=== PATIENT | male | born 1950 | race Caucasian/White ===

== ENCOUNTER 2022-04-07 12:05 | Emergency (ER) | payer MEDICARE, SELFPAY ==
[2022-04-07 12:11] VITALS: BP 161/68; PULSE 60; RESP 16; TEMP 36.5; O2SAT 97; BMI 27.8
[2022-04-07 15:11] VITALS: BP 164/101; PULSE 72; RESP 16; O2SAT 97
--- NOTE | 2022-04-07 15:26 | ED_ITS ---
HPI - General Adult General Time Seen by Provider: 15:26 Date Seen: 04/07/22 Chief complaint: GI Bleed Stated complaint: Rectal bleeding Time Seen by Provider: 04/07/22 15:11 Source: patient, family ( present) and RN notes reviewed Mode of arrival: ambulatory Limitations: no limitations History of Present Illness HPI narrative: This 72-year-old male is accompanied by his coming into the ER with concern of rectal bleeding. Patient was just sitting after breakfast and felt blood, got up and noticed blood. He cleaned himself up. Around 11 he had a bloody stool. He states he was hospitalized in both 2010 and 2011 for what sounds like diverticular bleeds. They ended up stopping on their own both times per report. He did require blood transfusions at least on 1 of the hospitalizations. He has been getting colonoscopies every 5 years. He is 4 years out from his last colonoscopy. He is having no abdominal pain, no preceding diarrhea. No sympto matic bleeding at this time. No fevers or chills. Related Data Home Medications Medication Instructions Recorded Confirmed lisinopril 20 mg tablet 20 mg PO DAILY 04/07/22 04/07/22 simvastatin 20 mg tablet 20 mg PO DAILY 04/07/22 04/07/22 Allergies Allergy/AdvReac Type Severity Reaction Status Date / Time No Known Drug Allergies Allergy Verified 04/07/22 12:16 Review of Systems Status of ROS: Reports: 10 or more systems reviewed and unremarkable except as noted in History and below [facility] Medical History (Updated 04/07/22 @ 18:35 by Anila Godfrey MD) Diverticulitis Hypertension Social History Smoking Status: Never smoker Do you use any of these nicotine containing products: None Second hand tobacco smoke exposure: No How often do you have a drink containing alcohol: 2-3 times a week How many standard drinks containing alcohol do you have on a typical day: 1 or 2 AUDIT-C Alcohol total score: 3 Non-prescribed substance use: denies use Exam Const: Vital Signs, click to edit/add: Vital Signs - 24 hr 04/07/22 12:11 04/07/22 15:11 Temperature 97.7 F Pulse Rate [Right Pulse Oximeter] 60 72 Respiratory Rate 16 16 Blood Pressure [Ri ght Upper Arm] 161/68 H 164/101 H Pulse Oximetry 97 97 Oxygen Delivery Me thod Room Air Room Air Documenting provider has reviewed patient's vital signs: yes Common normals: no apparent distress, average body habitus, oriented x3, no limitations, healthy appearing and alert General appearance: cooperative, comfortable, well kempt and well developed HENMT: Common normals: normocephalic, head/scalp atraumatic, hearing grossly normal bilaterally (Has bilateral hearing aids), external ears normal, external nose normal, nasal mucous membranes and turbinates normal, moist oral mucous membranes, oropharynx normal, dentition normal and gingiva normal Head and scalp: normocephalic and atraumatic Nose: external nose normal and nasal mucous membranes and turbinates normal External ear: external ears normal Eye: Common normals: PERRL, EOMs intact bilaterally, conjunctivae normal and no scleral icterus Conjunctiva: conjunctiva(e) normal Pupil: PERRL Neck & C-Spine: Common normals: full ROM, no lymphadenopathy, supple, no meningeal signs, no JVD and thyroid normal Thyroid: thyroid normal Resp: Common normals: normal respiratory effort, no retractions, no use of accessory muscles and clear to auscultation bilaterally Auscultation: clear to auscultation bilaterally Cardio: Common normals: no JVD, regular rate, regular rhythm, S1 normal heart sound, S2 normal heart sound, no gallops, no clicks, no murmurs and no rub Rate: regular rate Rhythm: regular rhythm Heart sounds: S1 normal and S2 normal GI: Common normals: Normal to inspection, nondistended, normoactive bowel sounds present, soft to palpation, non-tender, no hepatosplenomegaly and no masses Palpation: soft and no hepatosplenomegaly Other: Had some tissue in the intergluteal fold, some dried blood on it. External anus without any visible lesions. No active bleeding at this time. Extremity: Other: No lower extremity edema. Neuro: Common normals: oriented x3 and gait normal Sensorium/orientation: alert Meningeal signs: no meningeal signs Psych: Appearance: well kempt Course Course Hospital Course: We will establish an IV, obtain basic labs obviously including a CBC. We will do a type and screen. I do not feel that he needs abdominal imaging at this time. Given his history, am reluctant to discharge to home as he has had significant bleeding in the past remotely. We will see where his hemoglobin and labs lie, likely talk to the hospitalist once I have his hemoglobin result. Reevaluation(s) Reevaluation #1: Around 330, patient had she just a little what he calls leftover blood. Was very small he states it was maybe about 10% of what he had at the episode around 11 this morning. He is not feeling dizzy, not lightheaded, does not feel sympto matic from blood loss. Reviewed with them that I had spoken to our hospitalist home thought he maybe could go home. I do not think any abdominal imaging is going to be beneficial at this time. He is having absolutely no pain. Labs are reassuring. Reviewed his hemoglobin level. He is going to try drinking some fluids here, see how he does. If no further bleeding, will likely discharge to home for further observation. They are comfortable with that plan. They only live about 1.5 miles from the hospital. Reviewed with them that they certainly still can call EMS from home if needed. Time: 17:02 Reevaluation #2: Repeat hemoglobin is absolutely the same. No further bleeding episodes. We are going to discharge to home for further observation. His understands any further bleeding, she will bring him back. If there is heavy bleeding at home, do recommend calling 911. We also reviewed his positive COVID PCR. He has not been sick with COVID at all that he is aware of, is not symptomatic at this time. He has had all of his vaccines. He does donate blood and has been shown to have COVID antibodies. We will run a COVID antigen and let them know if this is positive. If the antigen is negative, unclear what the COVID PCR positivity actually means. Should he start to become symptomatic with COVID, does need to consider treatment. Time: 18:32 Vital Signs Vital signs: Initial Vital Signs Temperature 97.7 F 04/07/22 12:11 Temperature Source Temporal Artery Scan 04/07/22 12:11 Pulse Rate 60 04/07/22 12:11 Pulse Rhythm 04/07/22 12:11 Respiratory Rate 16 04/07/22 12:11 Blood Pressure 161/68 H 04/07/22 12:11 Blood Pressure Mean 99 04/07/22 12:11 Blood Pressure Position Sitting 04/07/22 12:11 Pulse Oximetry 97 04/07/22 12:11 Oxygen Delivery Method 12/19/22 12:11 Vital Signs Temperature 97.7 F 04/07/22 12:11 Pulse Rate 60 04/07/22 12:11 Respiratory Rate 16 04/07/22 12:11 Blood Pressure 161/68 H 04/07/22 12:11 Pulse Oximetry 97 04/07/22 12:11 Oxygen Delivery Method 04/07/22 12:11 Temperature 97.7 F 04/07/22 12:11 Pulse Rate 72 04/07/22 15:11 Respiratory Rate 16 04/07/22 15:11 Blood Pressure 164/101 H 04/07/22 15:11 Pulse Oximetry 97 04/07/22 15:11 Oxygen Delivery Method 04/07/22 15:11 Medical Decision Making Lab Data Lab results reviewed: Yes I reviewed the patient's lab results Labs: Lab Results 04/07/22 04/07/22 04/07/22 Range/Units 15:40 15:40 15:40 WBC 6.36 (4.50-11.00) K/uL RBC 4.88 (4.30-5.90) m/uL Hgb 13.4 L (13.5-17.5) gm/dL Hct 40.4 (37.0-53.0) % MCV 83 (80-100) fL MCH 28 (26-34) pg MCHC 33 (32-36) gm/dL RDW Coeff of Brenna 13.2 (11.5-15.5) % Plt Count 192 (140-440) K/uL Neut % (Auto) 74.6 H (42.0-72.0) % Lymph % (Auto) 14.3 L (20-44) % [place] % (Auto) 7.7 (0.0-11.0) % Eos % (Auto) 2.5 (0.0-7.0) % Baso % (Auto) 0.9 (0.0-3.0) % Neut # (Auto) 4.70 (1.7-7.0) K/uL Lymph # (Auto) 0.90 (0.90-2.90) K/uL [place] # (Auto) 0.50 (0.00-0.90) K/UL Eos # (Auto) 0.16 (0.00-0.50) K/uL Baso # (Auto) 0.06 (0.00-0.30) K/uL Sodium 139 (135-149) mmol/L Potassium 3.9 (3.6-5.1) mmol/L Chloride 111 (96-114) mmol/L Carbon Dioxide 23 (20-32) mmol/L BUN 19 (7-30) mg/dL Creatinine 0.7 (0.5-1.5) mg/dL Estimated Creat Clear 71.13 Estimated GFR 97 ml/min Glucose 92 (60-115) mg/dL Lactate 0.5 (0.5-1.9) mmol/L Calcium 8.8 (8.4-10.6) mg/dL Total Bilirubin 1.1 (0.1-1.5) mg/dL AST 55 H (12-35) U/L ALT 54 H (4-50) U/L Alkaline Phosphatase 63 (40-150) U/L C-Reactive Protein < 0.5 L (0.5-1.0) mg/dL Total Protein 6.6 (6.0-8.3) g/dL Albumin 3.9 (3.3-5.0) g/dL SARS-CoV-2 (PCR) (Negative) Blood Type Antibody Screen 04/07/22 04/07/22 04/07/22 Range/Units 15:40 15:46 17:45 WBC (4.50-11.00) K/uL RBC (4.30-5.90) m/uL Hgb 13.4 L (13.5-17.5) gm/dL Hct (37.0-53.0) % MCV (80-100) fL MCH (26-34) pg MCHC (32-36) gm/dL RDW Coeff of Brenna (11.5-15.5) % Plt Count (140-440) K/uL Neut % (Auto) (42.0-72.0) % Lymph % (Auto) (20-44) % [place] % (Auto) (0.0-11.0) % Eos % (Auto) (0.0-7.0) % Baso % (Auto) (0.0-3.0) % Neut # (Auto) (1.7-7.0) K/uL Lymph # (Auto) (0.90-2.90) K/uL [place] # (Auto) (0.00-0.90) K/UL Eos # (Auto) (0.00-0.50) K/uL Baso # (Auto) (0.00-0.30) K/uL Sodium (135-149) mmol/L Potassium (3.6-5.1) mmol/L Chloride (96-114) mmol/L Carbon Dioxide (20-32) mmol/L BUN (7-30) mg/dL Creatinine (0.5-1.5) mg/dL Estimated Creat Clear Estimated GFR ml/min Glucose (60-115) mg/dL Lactate (0.5-1.9) mmol/L Calcium (8.4-10.6) mg/dL Total Bilirubin (0.1-1.5) mg/dL AST (12-35) U/L ALT (4-50) U/L Alkaline Phosphatase (40-150) U/L C-Reactive Protein (0.5-1.0) mg/dL Total Protein (6.0-8.3) g/dL Albumin (3.3-5.0) g/dL SARS-CoV-2 (PCR) POSITIVE SARS-CoV-2 A (Negative) Blood Type B Positive Antibody Screen NEGATIVE Critical Care Time Critical Care Time Critical Care Time: No Discharge Plan Discharge Clinical Impression: Painless rectal bleeding Patient Disposition: Home, Self-Care Condition: Stable Instructions: Rectal Bleeding (ED) Additional Instructions: If you have further bleeding episodes, do need to return to the ER. Otherwise, get scheduled for follow-up with your primary care provider within the next 1-2 weeks; discuss possibly having the colonoscopy moved up sooner rather than waiting a full year. We will contact you with the COVID antigen status. If your antigen is negative, you do not likely have active COVID. If for any reason you do start to develop COVID symptoms, recommend contacting your primary care clinic to discuss the possibility of obtaining COVID oral medication for treatment. Prescriptions: No Action lisinopril 20 mg tablet 20 mg PO DAILY simvastatin 20 mg tablet 20 mg PO DAILY Stand Alone Forms: [employer] Info Instructions
[2022-04-07 15:47] LABS: Lactate* 0.5 mmol/L (0.5-1.9)
[2022-04-07 15:50] LABS: Basophils Absolute Auto 0.06 K/uL (0.00-0.30); Basophils Percent Auto 0.9 % (0.0-3.0); Eosinophils Absolute Auto 0.16 K/uL (0.00-0.50); Eosinophils Percent Auto 2.5 % (0.0-7.0); Hematocrit 40.4 % (37.0-53.0); Hemoglobin* 13.4 gm/dL (13.5-17.5); Lymphocytes Percent Auto 14.3 % (20-44); Mean Corpuscular HGB Conc 33 gm/dL (32-36); Mean Corpuscular Hemoglobin 28 pg (26-34); Mean Corpuscular Volume 83 fL (80-100); Monocytes Percent Auto 7.7 % (0.0-11.0); Neutrophils Percent Auto 74.6 % (42.0-72.0); Platelet Count* 192 K/uL (140-440); RDW Coefficient of Variation % 13.2 % (11.5-15.5); Red Blood Count 4.88 m/uL (4.30-5.90); White Blood Count* 6.36 K/uL (4.50-11.00)
[2022-04-07 15:55] LABS: Slide Review Reflex No
[2022-04-07 16:15] LABS: Chloride* 111 mmol/L (96-114)
[2022-04-07 16:16] LABS: Albumin* 3.9 g/dL (3.3-5.0); Potassium* 3.9 mmol/L (3.6-5.1); Sodium* 139 mmol/L (135-149)
[2022-04-07 16:18] LABS: Creatinine* 0.7 mg/dL (0.5-1.5); Est. Creatinine Clearance* 71.13; Estimated Glomerular Filt Rate 97 ml/min
[2022-04-07 16:19] LABS: Alkaline Phosphatase* 63 U/L (40-150); Aspartate Amino Transferase* 55 U/L (12-35); Bilirubin Total* 1.1 mg/dL (0.1-1.5); Blood Urea Nitrogen* 19 mg/dL (7-30); Carbon Dioxide* 23 mmol/L (20-32); Glucose* 92 mg/dL (60-115); Total Protein* 6.6 g/dL (6.0-8.3)
[2022-04-07 16:20] LABS: Calcium* 8.8 mg/dL (8.4-10.6)
[2022-04-07 16:25] LABS: C Reactive Protein* < 0.5 mg/dL (0.5-1.0)
[2022-04-07 16:35] LABS: Alanine Aminotransferase* 54 U/L (4-50)
[2022-04-07 16:36] LABS: SARS PCR* POSITIVE SARS-CoV-2 (Negative)
[2022-04-07 17:57] LABS: Hemoglobin* 13.4 gm/dL (13.5-17.5)
[2022-04-07 18:36] VITALS: BP 165/104; PULSE 66; RESP 16; O2SAT 97
--- NOTE | 2022-04-07 19:05 | ED.NURSE ---
Wrong swab was collected in error. Patient had already been discharged. Message was left detailing situation and option to either come in for test tonight or obtain at home Covid test at [facility] were discussed.
== END 2022-04-07 18:52 | disposition home or self-care (01) ==
PROVIDERS: Emergency Provider Family Medicine
DX: K62.5 Hemorrhage of anus and rectum (principal); U07.1 COVID-19
CPT/HCPCS: 36415; 80053; 83605; 85018; 85025; 86140; 86850; 86900; 86901; 87426; 87635; 94761; 99284

== ENCOUNTER 2022-06-09 21:18 | Observation (INO) | payer MEDICARE, SELFPAY ==
[2022-06-09] VITALS (14 sets, daily range): BP systolic 131–148; BP diastolic 84–94; PULSE 60–76; RESP 16; TEMP 36.4; O2SAT 94–98; BMI 27.9
--- NOTE | 2022-06-09 22:55 | CRLHL7_ITS ---
For Patients: As a result of the Century Cures Act, medical imaging exams and procedure reports are released immediately into your electronic medical record. You may view this report before your referring provider. If you have questions, please contact your health care provider. Indication: GI bleed Technique: KUB 2 view Comparison: None Findings/Impression: : Soft tissues: No suspicious calcifications to suggest kidney or ureteral stones. No sign of free air. No sign of soft tissue mass. Bowel: Large amount of stool in the colon. Bones: Mild levoscoliosis. Two tiny metallic densities project over the T8 vertebral body of unknown etiology. Dictated by Tanisha Canela MD @ 06/09/2022 11:57:50 PM (Electronically Signed)
--- NOTE | 2022-06-09 22:56 | ED.GIBLEED ---
HPI - GI Bleed General Chief complaint: GI Bleed Stated complaint: previous diverticulitis, possible GI bleed Time Seen by Provider: 06/09/22 22:04 History of Present Illness HPI Narrative: 72-year-old man presenting to the emergency department with concern of bleeding per rectum. This evening has had 3 episodes of bloody stool back to back to back. Moderate clots mixed with stool is described. Otherwise asymptomatic without lightheadedness or shortness of breath. No fever. No abdominal pain. Only potential discomfort was some urge to stool. There is a history of diverticular disease with history of diverticulitis. Later report a continued history of constipation as well over the years. More remote history of bleeding diverticuli apparently ultimately necessitating blood transfusion on 1 occasion. Does have Q 5 years colonoscopies. Reports had 1 very recently here and pending follow-up for result this week. Seen last in this department in March of last year for what sounds like a lower GI bleed. Resolved spontaneously. Had a positive COVID test at this time. Does not take anticoagulation or antiplatelet therapy. Related Data Home Medications Medication Instructions Recorded Confirmed lisinopril 20 mg tablet 20 mg PO DAILY 04/07/22 04/07/22 simvastatin 20 mg tablet 20 mg PO DAILY 04/07/22 04/07/22 Allergies Allergy/AdvReac Type Severity Reaction Status Date / Time No Known Drug Allergies Allergy Verified 04/07/22 12:16 Review of Systems Status of ROS: Reports: 10 or more systems reviewed and unremarkable except as noted in History and below [facility] Medical History Diverticulitis Hypertension Social History Highest level of school completed/degree received: some college, no degree Smoking Status: Never smoker Do you use any of these nicotine containing products: None Second hand tobacco smoke exposure: No How often do you have a drink containing alcohol: 2-3 times a week How many standard drinks containing alcohol do you have on a typical day: 1 or 2 AUDIT-C Alcohol total score: 3 Non-prescribed substance use: denies use Caffeine: Yes service: No Exam Narrative: Exam Narrative: Seems a little distracted in conversation. Mildly hard of hearing perhaps. No distress. Tired; had been sleeping when I enter the room. Is breathing easily. Cranial nerves 2-12 look to be intact. Lungs are clear. Heart is in a regular rate and rhythm. Abdomen is soft with normoactive bowel sounds. No pain. No peritoneal signs. No masses appreciated. Skin is warm and dry. Const: Vital Signs, click to edit/add: Vital Signs - 24 hr 06/09/22 21:27 06/09/22 21:52 06/09/22 21:53 Temperature 97.6 F Pulse Rate 64 66 Pulse Rate [Pulse Oximeter] 76 Respiratory Rate 16 Blood Pressure 138/87 Blood Pressure [Ri ght Upper Arm] 145/94 H Pulse Oximetry 94 95 95 06/09/22 22:00 06/09/22 22:02 06/09/22 22:03 Temperature Pulse Rate 64 64 65 Pulse Rate [Pulse Oximeter] Respiratory Rate Blood Pressure 146/85 H Blood Pressure [Ri ght Upper Arm] Pulse Oximetry 95 96 95 06/09/22 22:30 06/09/22 22:31 06/09/22 23:00 Temperature Pulse Rate 63 62 65 Pulse Rate [Pulse Oximeter] Respiratory Rate Blood Pressure 144/85 H Blood Pressure [Ri ght Upper Arm] Pulse Oximetry 97 95 96 06/09/22 23:02 06/09/22 23:03 06/09/22 23:34 Temperature Pulse Rate 60 65 61 Pulse Rate [Pulse Oximeter] Respiratory Rate Blood Pressure 131/84 Blood Pressure [Ri ght Upper Arm] Pulse Oximetry 95 95 96 06/09/22 23:35 06/10/22 00:02 06/10/22 02:00 Temperature 97.6 F Pulse Rate 61 59 L Pulse Rate [Pulse Oximeter] 79 Respiratory Rate 16 16 16 Blood Pressure 148/91 H 152/83 H Blood Pressure [Ri ght Upper Arm] 135/84 Pulse Oximetry 96 96 96 06/09/22 21:45 Temperature Pulse Rate Pulse Rate [Pulse Oximeter] Respiratory Rate Blood Pressure Blood Pressure [Ri ght Upper Arm] Pulse Oximetry 98 Course Vital Signs Vital signs: Initial Vital Signs Temperature 97.6 F 06/09/22 21:27 Temperature Source Temporal Artery Scan 06/09/22 21:27 Pulse Rate 76 06/09/22 21:27 Respiratory Rate 16 06/09/22 21:27 Blood Pressure 145/94 H 02/20/23 21:27 Blood Pressure Mean 111 02/20/23 21:27 Pulse Oximetry 94 06/09/22 21:27 Vital Signs Temperature 97.6 F 06/09/22 21:27 Pulse Rate 76 06/09/22 21:27 Respiratory Rate 16 06/09/22 21:27 Blood Pressure 145/94 H 06/09/22 21:27 Pulse Oximetry 94 06/09/22 21:27 Temperature 97.6 F 06/10/22 02:30 Pulse Rate 65 06/10/22 03:06 Respiratory Rate 16 06/10/22 02:30 Blood Pressure 155/88 H 06/10/22 03:06 Pulse Oximetry 96 06/10/22 02:29 Oxygen Delivery Method 06/10/22 02:29 MDM - GI Bleed MDM Narrative Medical decision making narrative: Hemoglobin is 13 which is near baseline. White count is not elevated. Is given IV fluids. I also dose with pantoprazole and txa. We did do a flat and upright x-ray. By my read does show a significant amount of right-sided colonic stool with none really in the pelvis. I do not see any free air. I think less likely with normal white count and benign belly exam that there is diverticulitis. Certainly possible diverticular bleed. I return later for anoscopy exam. Mr. Carbajal needs to use the restroom. He does produce bright red blood stained water in the toilet; no significant clotting. Upon return I do anoscopy exam. There is some dried blood on buttocks. Upon placing the anoscope I initially thought I viewed some fresh bleeding in the 6 o'clock position of the anus briefly, possibly fissure like, but this was eclipsed by a pouring out of dark/maroonish bloody liquid. I had been anticipating repeat hemoglobins in the emergency department and potential discharge home as prior, however with this finding on anoscopy I think would be better to be monitored inpatient with serial hemoglobins. Did communicate with general surgeon about this as well who will be following Mr. Carbajal in the morning. Admitted to hospitalist coverage. COVID test is positive. This may still be lingering from prior diagnoses. Antigen testing though is negative. Medical Records Attestation: I reviewed the patient's medical records. Lab Data Attestation: I reviewed the patient's lab results. Labs: Lab Results 06/09/22 06/09/22 06/09/22 Range/Units 23:00 23:00 23:00 WBC 4.86 (4.50-11.00) K/uL RBC 4.75 (4.30-5.90) m/uL Hgb 13.0 L (13.5-17.5) gm/dL Hct 39.0 (37.0-53.0) % MCV 82 (80-100) fL MCH 27 (26-34) pg MCHC 33 (32-36) gm/dL RDW Coeff of Brenna 14.3 (11.5-15.5) % Plt Count 180 (140-440) K/uL Neut % (Auto) 52.2 (42.0-72.0) % Lymph % (Auto) 29.8 (20-44) % [place] % (Auto) 11.1 H (0.0-11.0) % Eos % (Auto) 4.9 (0.0-7.0) % Baso % (Auto) 1.6 (0.0-3.0) % Neut # (Auto) 2.53 (1.7-7.0) K/uL Lymph # (Auto) 1.45 (0.90-2.90) K/uL [place] # (Auto) 0.50 (0.00-0.90) K/UL Eos # (Auto) 0.24 (0.00-0.50) K/uL Baso # (Auto) 0.08 (0.00-0.30) K/uL INR 0.97 (0.91-1.10) APTT 33 (23-33) Seconds Sodium 139 (135-149) mmol/L Potassium 4.0 (3.6-5.1) mmol/L Chloride 110 (96-114) mmol/L Carbon Dioxide 26 (20-32) mmol/L BUN 22 (7-30) mg/dL Creatinine 0.9 (0.5-1.5) mg/dL Estimated Creat Clear 69.03 Estimated GFR 90 ml/min Glucose 99 (60-115) mg/dL Calcium 8.7 (8.4-10.6) mg/dL Total Bilirubin 0.8 (0.1-1.5) mg/dL Direct Bilirubin 0.1 (0.0-0.5) mg/dL AST 23 (12-35) U/L ALT 25 (4-50) U/L Alkaline Phosphatase 61 (40-150) U/L C-Reactive Protein < 0.5 L (0.5-1.0) mg/dL Total Protein 6.5 (6.0-8.3) g/dL Albumin 3.8 (3.3-5.0) g/dL SARS-CoV-2 (PCR) (Negative) SARS-CoV-2 Ag (Rapid) (Negative) Blood Type Antibody Screen 06/09/22 06/09/22 06/09/22 Range/Units 23:00 23:00 23:07 WBC (4.50-11.00) K/uL RBC (4.30-5.90) m/uL Hgb (13.5-17.5) gm/dL Hct (37.0-53.0) % MCV (80-100) fL MCH (26-34) pg MCHC (32-36) gm/dL RDW Coeff of Brenna (11.5-15.5) % Plt Count (140-440) K/uL Neut % (Auto) (42.0-72.0) % Lymph % (Auto) (20-44) % [place] % (Auto) (0.0-11.0) % Eos % (Auto) (0.0-7.0) % Baso % (Auto) (0.0-3.0) % Neut # (Auto) (1.7-7.0) K/uL Lymph # (Auto) (0.90-2.90) K/uL [place] # (Auto) (0.00-0.90) K/UL Eos # (Auto) (0.00-0.50) K/uL Baso # (Auto) (0.00-0.30) K/uL INR (0.91-1.10) APTT (23-33) Seconds Sodium (135-149) mmol/L Potassium (3.6-5.1) mmol/L Chloride (96-114) mmol/L Carbon Dioxide (20-32) mmol/L BUN (7-30) mg/dL Creatinine (0.5-1.5) mg/dL Estimated Creat Clear Estimated GFR ml/min Glucose (60-115) mg/dL Calcium (8.4-10.6) mg/dL Total Bilirubin Cancelled (0.1-1.5) mg/dL Direct Bilirubin Cancelled (0.0-0.5) mg/dL AST Cancelled (12-35) U/L ALT Cancelled (4-50) U/L Alkaline Phosphatase Cancelled (40-150) U/L C-Reactive Protein (0.5-1.0) mg/dL Total Protein Cancelled (6.0-8.3) g/dL Albumin Cancelled (3.3-5.0) g/dL SARS-CoV-2 (PCR) POSITIVE SARS-CoV-2 A (Negative) SARS-CoV-2 Ag (Rapid) (Negative) Blood Type B Positive Antibody Screen NEGATIVE 06/09/22 Range/Units 23:58 WBC (4.50-11.00) K/uL RBC (4.30-5.90) m/uL Hgb (13.5-17.5) gm/dL Hct (37.0-53.0) % MCV (80-100) fL MCH (26-34) pg MCHC (32-36) gm/dL RDW Coeff of Brenna (11.5-15.5) % Plt Count (140-440) K/uL Neut % (Auto) (42.0-72.0) % Lymph % (Auto) (20-44) % [place] % (Auto) (0.0-11.0) % Eos % (Auto) (0.0-7.0) % Baso % (Auto) (0.0-3.0) % Neut # (Auto) (1.7-7.0) K/uL Lymph # (Auto) (0.90-2.90) K/uL [place] # (Auto) (0.00-0.90) K/UL Eos # (Auto) (0.00-0.50) K/uL Baso # (Auto) (0.00-0.30) K/uL INR (0.91-1.10) APTT (23-33) Seconds Sodium (135-149) mmol/L Potassium (3.6-5.1) mmol/L Chloride (96-114) mmol/L Carbon Dioxide (20-32) mmol/L BUN (7-30) mg/dL Creatinine (0.5-1.5) mg/dL Estimated Creat Clear Estimated GFR ml/min Glucose (60-115) mg/dL Calcium (8.4-10.6) mg/dL Total Bilirubin (0.1-1.5) mg/dL Direct Bilirubin (0.0-0.5) mg/dL AST (12-35) U/L ALT (4-50) U/L Alkaline Phosphatase (40-150) U/L C-Reactive Protein (0.5-1.0) mg/dL Total Protein (6.0-8.3) g/dL Albumin (3.3-5.0) g/dL SARS-CoV-2 (PCR) (Negative) SARS-CoV-2 Ag (Rapid) negative (Negative) Blood Type Antibody Screen Critical Care Time Critical Care Time Critical Care Time: Yes Attestation: The patient required my highest level preparedness to intervene emergently and I personally spent this critical care time directly and personally managing the patient. This critical care time included: Obtaining a history; Examining the patient; Pulse oximetry; Ordering and reviewing of studies; Arranging urgent treatment with development of a management plan; Evaluation of patients response to treatment; Frequent reassessment discussions with other providers. This critical care time was performed to assess and manage the high probability of imminent life-threatening deterioration that could result in multiorgan failure. It was exclusive of separate billable procedures and treating other patients and teaching time. Total Critical Care Time in Minutes: 50 Discharge Plan Discharge Clinical Impression: Acute lower GI bleeding Patient Disposition: Admitted As Inpatient Condition: Stable
[2022-06-09] MEDS: TRANEXAMIC ACID 1,000 MG in 0.9 % SODIUM CHLORIDE 100 ml 100 ML 440 MG IVPB (23:10)
[2022-06-09] MEDS: 0.9 % SODIUM CHLORIDE 1000 ml 1,000 ML IV (23:10)
[2022-06-09] MEDS: PANTOPRAZOLE SODIUM 40 MG INJ 80 MG IVP (23:15)
[2022-06-09 23:27] LABS: Basophils Absolute Auto 0.08 K/uL (0.00-0.30); Basophils Percent Auto 1.6 % (0.0-3.0); Eosinophils Absolute Auto 0.24 K/uL (0.00-0.50); Eosinophils Percent Auto 4.9 % (0.0-7.0); Immature Granulocytes Abs Auto 0.02 K/uL (0.00-0.30); Immature Granulocytes Pct Auto 0.4 %; Lymphocytes Absolute Auto 1.45 K/uL (0.90-2.90); Lymphocytes Percent Auto 29.8 % (20-44); Mean Corpuscular HGB Conc 33 gm/dL (32-36); Mean Corpuscular Hemoglobin 27 pg (26-34); Mean Corpuscular Volume 82 fL (80-100); Monocytes Percent Auto 11.1 % (0.0-11.0); Neutrophils Absolute Auto 2.53 K/uL (1.7-7.0); Neutrophils Percent Auto 52.2 % (42.0-72.0); Platelet Count* 180 K/uL (140-440); RDW Coefficient of Variation % 14.3 % (11.5-15.5); Red Blood Count 4.75 m/uL (4.30-5.90); White Blood Count* 4.86 K/uL (4.50-11.00)
[2022-06-09 23:28] LABS: INR 0.97 (0.91-1.10); Prothrombin Time 13.5 Seconds
[2022-06-09 23:29] LABS: Partial Thromboplastin Time* 33 Seconds (23-33)
[2022-06-09 23:34] LABS: Slide Review Reflex No
[2022-06-09 23:47] LABS: SARS PCR* POSITIVE SARS-CoV-2 (Negative)
[2022-06-10] VITALS (9 sets, daily range): BP systolic 135–170; BP diastolic 65–96; PULSE 54–79; RESP 16–18; TEMP 35.9–36.6; O2SAT 96–99; BMI 21.0
[2022-06-10 00:03] LABS: Blood Urea Nitrogen* 22 mg/dL (7-30); Carbon Dioxide* 26 mmol/L (20-32); Chloride* 110 mmol/L (96-114); Sodium* 139 mmol/L (135-149)
[2022-06-10 00:04] LABS: Alanine Aminotransferase* 25 U/L (4-50); Albumin* 3.8 g/dL (3.3-5.0); Alkaline Phosphatase* 61 U/L (40-150); Aspartate Amino Transferase* 23 U/L (12-35); Bilirubin Direct* 0.1 mg/dL (0.0-0.5); Bilirubin Total* 0.8 mg/dL (0.1-1.5); C Reactive Protein* < 0.5 mg/dL (0.5-1.0); Calcium* 8.7 mg/dL (8.4-10.6); Creatinine* 0.9 mg/dL (0.5-1.5); Est. Creatinine Clearance* 69.03; Estimated Glomerular Filt Rate 90 ml/min; Glucose* 99 mg/dL (60-115); Total Protein* 6.5 g/dL (6.0-8.3)
[2022-06-10 00:36] LABS: SARS Antigen* negative (Negative)
--- NOTE | 2022-06-10 03:36 | PM.IMCN1 ---
Date of Consult Consult date: 06/10/22 Primary Care Provider: Tommie Singh MD Consult Narrative Narrative: Praful Carbajal is a 72 year old male [facility] Medical History (Updated 06/10/22 @ 01:48 by Neel Salas MD) Diverticulitis Hypertension Social History Highest level of school completed/degree received: some college, no degree Smoking Status: Never smoker Do you use any of these nicotine containing products: None Second hand tobacco smoke exposure: No How often do you have a drink containing alcohol: 2-3 times a week How many standard drinks containing alcohol do you have on a typical day: 1 or 2 AUDIT-C Alcohol total score: 3 Non-prescribed substance use: denies use Caffeine: Yes service: No Meds Home Medications and Allergies Home Medications Medication Instructions Recorded Confirmed Type lisinopril 20 mg tablet 20 mg PO DAILY 04/07/22 04/07/22 History simvastatin 20 mg tablet 20 mg PO DAILY 04/07/22 04/07/22 History Allergies Allergy/AdvReac Type Severity Reaction Status Date / Time No Known Drug Allergies Allergy Verified 04/07/22 12:16 Exam Const: Vital Signs, click to edit/add: Vital Signs - 24 hr 06/09/22 21:27 06/09/22 21:52 06/09/22 21:53 Temperature 97.6 F Pulse Rate 64 66 Pulse Rate [Left P ulse Oximeter] Pulse Rate [Pulse Oximeter] 76 Pulse Rate [orthos tatic lying Left P ulse Oximeter] Pulse Rate [orthos tatic sitting Left Pulse Oximeter] Pulse Rate [orthos tatic standing Lef t Pulse Oximeter] Respiratory Rate 16 Blood Pressure 138/87 Blood Pressure [Le ft Arm] Blood Pressure [Ri ght Upper Arm] 145/94 H Blood Pressure [or thostatic lying Le ft Arm] Blood Pressure [or thostatic sitting Left Arm] Blood Pressure [or thostatic standing Left Arm] Pulse Oximetry 94 95 95 Oxygen Delivery Me thod 06/09/22 22:00 06/09/22 22:02 06/09/22 22:03 Temperature Pulse Rate 64 64 65 Pulse Rate [Left P ulse Oximeter] Pulse Rate [Pulse Oximeter] Pulse Rate [orthos tatic lying Left P ulse Oximeter] Pulse Rate [orthos tatic sitting Left Pulse Oximeter] Pulse Rate [orthos tatic standing Lef t Pulse Oximeter] Respiratory Rate Blood Pressure 146/85 H Blood Pressure [Le ft Arm] Blood Pressure [Ri ght Upper Arm] Blood Pressure [or thostatic lying Le ft Arm] Blood Pressure [or thostatic sitting Left Arm] Blood Pressure [or thostatic standing Left Arm] Pulse Oximetry 95 96 95 Oxygen Delivery Me thod 06/09/22 22:30 06/09/22 22:31 06/09/22 23:00 Temperature Pulse Rate 63 62 65 Pulse Rate [Left P ulse Oximeter] Pulse Rate [Pulse Oximeter] Pulse Rate [orthos tatic lying Left P ulse Oximeter] Pulse Rate [orthos tatic sitting Left Pulse Oximeter] Pulse Rate [orthos tatic standing Lef t Pulse Oximeter] Respiratory Rate Blood Pressure 144/85 H Blood Pressure [Le ft Arm] Blood Pressure [Ri ght Upper Arm] Blood Pressure [or thostatic lying Le ft Arm] Blood Pressure [or thostatic sitting Left Arm] Blood Pressure [or thostatic standing Left Arm] Pulse Oximetry 97 95 96 Oxygen Delivery Me thod 06/09/22 23:02 06/09/22 23:03 06/09/22 23:34 Temperature Pulse Rate 60 65 61 Pulse Rate [Left P ulse Oximeter] Pulse Rate [Pulse Oximeter] Pulse Rate [orthos tatic lying Left P ulse Oximeter] Pulse Rate [orthos tatic sitting Left Pulse Oximeter] Pulse Rate [orthos tatic standing Lef t Pulse Oximeter] Respiratory Rate Blood Pressure 131/84 Blood Pressure [Le ft Arm] Blood Pressure [Ri ght Upper Arm] Blood Pressure [or thostatic lying Le ft Arm] Blood Pressure [or thostatic sitting Left Arm] Blood Pressure [or thostatic standing Left Arm] Pulse Oximetry 95 95 96 Oxygen Delivery Me thod 06/09/22 23:35 06/10/22 00:02 06/10/22 02:00 Temperature 97.6 F Pulse Rate 61 59 L Pulse Rate [Left P ulse Oximeter] Pulse Rate [Pulse Oximeter] 79 Pulse Rate [orthos tatic lying Left P ulse Oximeter] Pulse Rate [orthos tatic sitting Left Pulse Oximeter] Pulse Rate [orthos tatic standing Lef t Pulse Oximeter] Respiratory Rate 16 16 16 Blood Pressure 148/91 H 152/83 H Blood Pressure [Le ft Arm] Blood Pressure [Ri ght Upper Arm] 135/84 Blood Pressure [or thostatic lying Le ft Arm] Blood Pressure [or thostatic sitting Left Arm] Blood Pressure [or thostatic standing Left Arm] Pulse Oximetry 96 96 96 Oxygen Delivery Me thod 06/10/22 02:29 06/10/22 03:06 06/09/22 21:45 Temperature 97.6 F Pulse Rate Pulse Rate [Left P ulse Oximeter] 54 L Pulse Rate [Pulse Oximeter] Pulse Rate [orthos tatic lying Left P ulse Oximeter] 65 Pulse Rate [orthos tatic sitting Left Pulse Oximeter] 60 Pulse Rate [orthos tatic standing Lef t Pulse Oximeter] 61 Respiratory Rate 18 Blood Pressure Blood Pressure [Le ft Arm] 161/91 H Blood Pressure [Ri ght Upper Arm] Blood Pressure [or thostatic lying Le ft Arm] 155/88 H Blood Pressure [or thostatic sitting Left Arm] 148/84 H Blood Pressure [or thostatic standing Left Arm] 137/65 Pulse Oximetry 96 98 Oxygen Delivery Nh thod Room Air 06/10/22 02:30 Temperature 97.6 F Pulse Rate Pulse Rate [Left P ulse Oximeter] Pulse Rate [Pulse Oximeter] 79 Pulse Rate [orthos tatic lying Left P ulse Oximeter] Pulse Rate [orthos tatic sitting Left Pulse Oximeter] Pulse Rate [orthos tatic standing Lef t Pulse Oximeter] Respiratory Rate 16 Blood Pressure Blood Pressure [Le ft Arm] Blood Pressure [Ri ght Upper Arm] 135/84 Blood Pressure [or thostatic lying Le ft Arm] Blood Pressure [or thostatic sitting Left Arm] Blood Pressure [or thostatic standing Left Arm] Pulse Oximetry Oxygen Delivery Nh thod Labs Labs: Short CBC 06/09/22 Range/Units 23:00 WBC 4.86 (4.50-11.00) K/uL Hgb 13.0 L (13.5-17.5) gm/dL Hct 39.0 (37.0-53.0) % Plt Count 180 (140-440) K/uL BMP 06/09/22 23:00 Sodium 139 Potassium 4.0 Chloride 110 Carbon Dioxide 26 BUN 22 Creatinine 0.9 Glucose 99 Calcium 8.7 Liver Function 06/09/22 06/09/22 Range/Units 23:00 23:00 Total Bilirubin 0.8 Cancelled (0.1-1.5) mg/dL Direct Bilirubin 0.1 Cancelled (0.0-0.5) mg/dL AST 23 Cancelled (12-35) U/L ALT 25 Cancelled (4-50) U/L Alkaline Phosphatase 61 Cancelled (40-150) U/L Albumin 3.8 Cancelled (3.3-5.0) g/dL Assessment and Plan Assessment and plan (1) Acute lower GI bleeding: Status: Acute Plan [facility] Hospitalist ADMISSION SUPPORT NOTE eHospitalist was contacted by Dr. Herbert with request of admission support for Mr. Praful Carbajal. HPI: In summary patient is a 72-year-old male with medical history of HLP, HTN, diverticulosis and previous lower GI bleed who presents to ER with 3 episodes of painless bleeding per rectum. He endorses having constipation over the weekend however denies any abdominal pain, chest pain, fever, dizziness, weakness, palpitations or shortness of breath. He denies any known history of liver disease ever having hematemesis, melena. He does endorse using Advil for about 6 months almost daily basis although he did not take it last night. Of note patient had 2 previous lower GI bleeds in , and last in March 2022 requiring colonoscopy about 6 weeks ago where he was found to have diverticulosis and a polyp was removed. He remained asymptomatic until 06/09 when he started having bleeding in the stools again. He used MiraLAX for about a week after last GI bleed but then stopped using as he was going regular with his bowel movements without any laxatives. Of note patient tested positive for COVID and had a mild illness in March 2022 and today again was found to be positive without any new respiratory symptoms including fever or cough or hypoxia. He had 2 more bright red per rectum episodes 1 in ED and 1 on the floor, however his vital signs are stable blood pressure slightly on the higher side and heart rate 65 without any acute distress. His hemoglobin was noted to be stable around his baseline 13+, no leukocytosis. Other labs were also unremarkable. He was admitted for further observation, and the emergency provider did speak to his surgeon who will evaluate the patient tomorrow. Home Medications: Lisinopril and atorvastatin Pertinent Medical History: Hypertension, hyperlipidemia, diverticulosis, lower GI bleed, COVID Pertinent Social History: Noncontributory Exam (performed via interactive video with assistance of bedside nurse): General: [alert, cooperative, no acute distress] HEENT: EOMI grossly [oral mucosa moist without erythema] Lungs: [Equal air entry bilaterally , no wheeze] CV: [regular rate and rhythm without loud murmur rub or gallop] Abd: [denies tenderness and does not exhibit signs of pain with palpation done by bedside nurse] Ext: [no pitting edema noted] Skin: [no rashes, bruises or lesions appreciated on gross visualization of exposed skin] Neuro: [alert, oriented x . EOMI, moves all extremities without any significant focal deficit appreciated by nurse] Assessment and Plan: Bleeding per rectum likely from lower GI secondary to diverticular origin, rule out internal hemorrhoids/AVM. Unlikely likely upper GI bleed as normal BUN, no melena but if colonoscopy negative then patient may need EGD at some point to rule out upper GI source with fast transit. Patient denies using any NSAIDs/anticoagulants at home, avoid any during hospital stay Monitor hemoglobin every 6 hours, transfuse as needed for Hb less than 7, hemodynamic instability or large active bleed, NEXT Ordered for 6 AM, along with type and screen Patient will be n.p.o. tentatively in case luminal eval is planned in the morning. Patient has no history of heart disease, DM or CKD, is a low risk for endoscopy. Comorbidities stable Hypertension?hold lisinopril while n.p.o., as needed hydralazine available for SBP greater than 160 mmHg HLP?on statin, currently on hold, restart on DC thank you for including [facility] Hospitalist in the patients care. This service is available for further assistance as requested by your care team by calling [phone].
[2022-06-10] MEDS: LACTATED RINGERS 1000 ML 500 ML IV (05:25)
[2022-06-10] MEDS: PANTOPRAZOLE SODIUM 40 MG INJ IVP ×2 (05:36→20:43)
--- NOTE | 2022-06-10 06:27 | PC.NURSE ---
Shift note: Pt was admitted to the unit at 0240 with the history of GI bleeding. Alert and oriented on arrival. Nursing assessment done and pt vitally stable except high Bp. Mariano assessment done. At 0530, quality analyst/technical writer went to patient's room and found blood and faeces on the floor while pt was in the BR. Pt responded he was fine when asked and denied dizziness. Pt was completed soiled with blood and faeces. Edge Blacker assisted pt to shower and changed clothing. Floor cleaned. V/S monitored recorded as T 97.7, P 54, O2 97 and Bp 117/73. Tele DrMontserrat called and informed of patient's current condition. Mariano Parham ordered IV ringers lactate 500ml bolus and then 100ml/hr. Treatment initiated and pt denied dizziness but confirmed fatigue. Pt made comfortable in bed.
[2022-06-10 06:42] LABS: Basophils Absolute Auto 0.07 K/uL (0.00-0.30); Basophils Percent Auto 1.2 % (0.0-3.0); Eosinophils Absolute Auto 0.15 K/uL (0.00-0.50); Eosinophils Percent Auto 2.5 % (0.0-7.0); Hematocrit 34.5 % (37.0-53.0); Hemoglobin* 11.3 gm/dL (13.5-17.5); Immature Granulocytes Abs Auto 0.01 K/uL (0.00-0.30); Immature Granulocytes Pct Auto 0.2 %; Lymphocytes Percent Auto 17.8 % (20-44); Mean Corpuscular HGB Conc 33 gm/dL (32-36); Mean Corpuscular Hemoglobin 27 pg (26-34); Mean Corpuscular Volume 84 fL (80-100); Monocytes Percent Auto 7.4 % (0.0-11.0); Neutrophils Absolute Auto 4.31 K/uL (1.7-7.0); Neutrophils Percent Auto 70.9 % (42.0-72.0); Platelet Count* 174 K/uL (140-440); RDW Coefficient of Variation % 14.6 % (11.5-15.5); Red Blood Count 4.12 m/uL (4.30-5.90); White Blood Count* 6.07 K/uL (4.50-11.00)
[2022-06-10 06:48] LABS: Slide Review Reflex No
[2022-06-10 06:55] LABS: Albumin* 3.4 g/dL (3.3-5.0); Chloride* 112 mmol/L (96-114); Potassium* 4.1 mmol/L (3.6-5.1); Sodium* 140 mmol/L (135-149)
[2022-06-10 06:57] LABS: Bilirubin Total* 1.1 mg/dL (0.1-1.5); Carbon Dioxide* 24 mmol/L (20-32); Creatinine* 0.9 mg/dL (0.5-1.5); Est. Creatinine Clearance* 85.73; Estimated Glomerular Filt Rate 90 ml/min
[2022-06-10 06:58] LABS: Alanine Aminotransferase* 23 U/L (4-50); Alkaline Phosphatase* 50 U/L (40-150); Aspartate Amino Transferase* 22 U/L (12-35); Blood Urea Nitrogen* 23 mg/dL (7-30); Calcium* 8.2 mg/dL (8.4-10.6); Glucose* 89 mg/dL (60-115); Total Protein* 5.9 g/dL (6.0-8.3)
--- NOTE | 2022-06-10 07:37 | PC.NURSE ---
LR bolus 500cc completed from 1L bag, continuing IV fluids @ 100cc/hr from same bag, not scanned to avoid charging patient for two bags of IV fluids.
--- NOTE | 2022-06-10 09:46 | PM.GSCN ---
History of Present Illness Consult details Date Seen: 06/10/22 Consult date: 06/10/22 Narrative: Patient presented to the emergency department last night for multiple bloody bowel movements. He does have a history of previous diverticular bleeds (2010, 2011 and most recently 03/2022). His last colonoscopy was 6 weeks earlier and notable for a single polyp and diverticular disease. He has never had abdominal surgery before. He denies any abdominal pain this morning. His last bowel movement was at 4:00 a.m. this morning and ?a bloody mess?. He denies any current dizziness, but does report feeling fatigued. He also states that he did not sleep at all last night. His medical history is significant for arthritis, for which he takes Advil on a daily basis for. He denies any history of reflux or gastric ulcers. He does not take any blood thinners. Review of Systems Status of ROS: Reports: 10 or more systems reviewed and unremarkable except as noted in History and below [facility] Medical History Diverticulitis Hypertension Social History Highest level of school completed/degree received: some college, no degree Smoking Status: Never smoker Do you use any of these nicotine containing products: None Second hand tobacco smoke exposure: No How often do you have a drink containing alcohol: 2-3 times a week How many standard drinks containing alcohol do you have on a typical day: 1 or 2 AUDIT-C Alcohol total score: 3 Non-prescribed substance use: denies use Caffeine: Yes service: No Meds Home Medications and Allergies Home Medications Medication Instructions Recorded Confirmed Type atorvastatin 20 mg tablet 20 mg PO HS 06/10/22 06/10/22 History lisinopril 10 mg tablet 10 mg PO DAILY 06/10/22 06/10/22 History Allergies Allergy/AdvReac Type Severity Reaction Status Date / Time No Known Drug Allergies Allergy Verified 04/07/22 12:16 Exam Narrative: Exam Narrative: General: Alert and oriented, no acute distress on examination this morning with patient lying in bed Respiratory: Equal breath rise bilaterally, maintained on room air CV: Regular rhythm rate, well perfused Abdomen: Soft, nontender and nondistended Const: Vital Signs, click to edit/add: Vital Signs - 24 hr 06/09/22 21:27 06/09/22 21:52 06/09/22 21:53 Temperature 97.6 F Pulse Rate 64 66 Pulse Rate [Left P ulse Oximeter] Pulse Rate [Pulse Oximeter] 76 Pulse Rate [orthos tatic lying Left P ulse Oximeter] Pulse Rate [orthos tatic sitting Left Pulse Oximeter] Pulse Rate [orthos tatic standing Lef t Pulse Oximeter] Respiratory Rate 16 Blood Pressure 138/87 Blood Pressure [Le ft Arm] Blood Pressure [Ri ght Upper Arm] 145/94 H Blood Pressure [or thostatic lying Le ft Arm] Blood Pressure [or thostatic sitting Left Arm] Blood Pressure [or thostatic standing Left Arm] Pulse Oximetry 94 95 95 Oxygen Delivery Ut thod 06/09/22 22:00 06/09/22 22:02 06/09/22 22:03 Temperature Pulse Rate 64 64 65 Pulse Rate [Left P ulse Oximeter] Pulse Rate [Pulse Oximeter] Pulse Rate [orthos tatic lying Left P ulse Oximeter] Pulse Rate [orthos tatic sitting Left Pulse Oximeter] Pulse Rate [orthos tatic standing Lef t Pulse Oximeter] Respiratory Rate Blood Pressure 146/85 H Blood Pressure [Le ft Arm] Blood Pressure [Ri ght Upper Arm] Blood Pressure [or thostatic lying Le ft Arm] Blood Pressure [or thostatic sitting Left Arm] Blood Pressure [or thostatic standing Left Arm] Pulse Oximetry 95 96 95 Oxygen Delivery Me thod 06/09/22 22:30 06/09/22 22:31 06/09/22 23:00 Temperature Pulse Rate 63 62 65 Pulse Rate [Left P ulse Oximeter] Pulse Rate [Pulse Oximeter] Pulse Rate [orthos tatic lying Left P ulse Oximeter] Pulse Rate [orthos tatic sitting Left Pulse Oximeter] Pulse Rate [orthos tatic standing Lef t Pulse Oximeter] Respiratory Rate Blood Pressure 144/85 H Blood Pressure [Le ft Arm] Blood Pressure [Ri ght Upper Arm] Blood Pressure [or thostatic lying Le ft Arm] Blood Pressure [or thostatic sitting Left Arm] Blood Pressure [or thostatic standing Left Arm] Pulse Oximetry 97 95 96 Oxygen Delivery Me thod 06/09/22 23:02 06/09/22 23:03 06/09/22 23:34 Temperature Pulse Rate 60 65 61 Pulse Rate [Left P ulse Oximeter] Pulse Rate [Pulse Oximeter] Pulse Rate [orthos tatic lying Left P ulse Oximeter] Pulse Rate [orthos tatic sitting Left Pulse Oximeter] Pulse Rate [orthos tatic standing Lef t Pulse Oximeter] Respiratory Rate Blood Pressure 131/84 Blood Pressure [Le ft Arm] Blood Pressure [Ri ght Upper Arm] Blood Pressure [or thostatic lying Le ft Arm] Blood Pressure [or thostatic sitting Left Arm] Blood Pressure [or thostatic standing Left Arm] Pulse Oximetry 95 95 96 Oxygen Delivery Me thod 06/09/22 23:35 06/10/22 00:02 06/10/22 02:00 Temperature 97.6 F Pulse Rate 61 59 L Pulse Rate [Left P ulse Oximeter] Pulse Rate [Pulse Oximeter] 79 Pulse Rate [orthos tatic lying Left P ulse Oximeter] Pulse Rate [orthos tatic sitting Left Pulse Oximeter] Pulse Rate [orthos tatic standing Lef t Pulse Oximeter] Respiratory Rate 16 16 16 Blood Pressure 148/91 H 152/83 H Blood Pressure [Le ft Arm] Blood Pressure [Ri ght Upper Arm] 135/84 Blood Pressure [or thostatic lying Le ft Arm] Blood Pressure [or thostatic sitting Left Arm] Blood Pressure [or thostatic standing Left Arm] Pulse Oximetry 96 96 96 Oxygen Delivery Ut thod 06/10/22 02:29 06/10/22 03:06 06/09/22 21:45 Temperature 97.6 F Pulse Rate Pulse Rate [Left P ulse Oximeter] 54 L Pulse Rate [Pulse Oximeter] Pulse Rate [orthos tatic lying Left P ulse Oximeter] 65 Pulse Rate [orthos tatic sitting Left Pulse Oximeter] 60 Pulse Rate [orthos tatic standing Lef t Pulse Oximeter] 61 Respiratory Rate 18 Blood Pressure Blood Pressure [Le ft Arm] 161/91 H Blood Pressure [Ri ght Upper Arm] Blood Pressure [or thostatic lying Le ft Arm] 155/88 H Blood Pressure [or thostatic sitting Left Arm] 148/84 H Blood Pressure [or thostatic standing Left Arm] 137/65 Pulse Oximetry 96 98 [facility] 02:30 Temperature 97.6 F Pulse Rate Pulse Rate [Left P ulse Oximeter] Pulse Rate [Pulse Oximeter] 79 Pulse Rate [orthos tatic lying Left P ulse Oximeter] Pulse Rate [orthos tatic sitting Left Pulse Oximeter] Pulse Rate [orthos tatic standing Lef t Pulse Oximeter] Respiratory Rate 16 Blood Pressure Blood Pressure [Le ft Arm] Blood Pressure [Ri ght Upper Arm] 135/84 Blood Pressure [or thostatic lying Le ft Arm] Blood Pressure [or thostatic sitting Left Arm] Blood Pressure [or thostatic standing Left Arm] Pulse Oximetry Oxygen Delivery Me thod Results Labs Labs: Abnormal lab results 06/09/22 06/09/22 06/09/22 Range/Units 23:00 23:00 23:07 RBC (4.30-5.90) m/uL Hgb 13.0 L (13.5-17.5) gm/dL Hct (37.0-53.0) % Lymph % (Auto) (20-44) % Sutton % (Auto) 11.1 H (0.0-11.0) % Calcium (8.4-10.6) mg/dL C-Reactive Protein < 0.5 L (0.5-1.0) mg/dL Total Protein (6.0-8.3) g/dL SARS-CoV-2 (PCR) POSITIVE SARS-CoV-2 A (Negative) 06/10/22 06/10/22 Range/Units 06:28 06:28 RBC 4.12 L (4.30-5.90) m/uL Hgb 11.3 L (13.5-17.5) gm/dL Hct 34.5 L (37.0-53.0) % Lymph % (Auto) 17.8 L (20-44) % Sutton % (Auto) (0.0-11.0) % Calcium 8.2 L (8.4-10.6) mg/dL C-Reactive Protein (0.5-1.0) mg/dL Total Protein 5.9 L (6.0-8.3) g/dL SARS-CoV-2 (PCR) (Negative) Diabetes panel 06/09/22 06/09/22 06/10/22 Range/Units 23:00 23:00 06:28 Sodium 139 140 (135-149) mmol/L Potassium 4.0 4.1 (3.6-5.1) mmol/L Chloride 110 112 (96-114) mmol/L Carbon Dioxide 26 24 (20-32) mmol/L BUN 22 23 (7-30) mg/dL Creatinine 0.9 0.9 (0.5-1.5) mg/dL Glucose 99 89 (60-115) mg/dL Calcium 8.7 8.2 L (8.4-10.6) mg/dL AST 23 Cancelled 22 (12-35) U/L ALT 25 Cancelled 23 (4-50) U/L Alkaline Phosphatase 61 Cancelled 50 (40-150) U/L Total Protein 6.5 Cancelled 5.9 L (6.0-8.3) g/dL Albumin 3.8 Cancelled 3.4 (3.3-5.0) g/dL Calcium panel 06/09/22 06/09/22 06/10/22 Range/Units 23:00 23:00 06:28 Calcium 8.7 8.2 L (8.4-10.6) mg/dL Albumin 3.8 Cancelled 3.4 (3.3-5.0) g/dL Pituitary panel 06/09/22 06/10/22 Range/Units 23:00 06:28 Sodium 139 140 (135-149) mmol/L Potassium 4.0 4.1 (3.6-5.1) mmol/L Chloride 110 112 (96-114) mmol/L Carbon Dioxide 26 24 (20-32) mmol/L BUN 22 23 (7-30) mg/dL Creatinine 0.9 0.9 (0.5-1.5) mg/dL Glucose 99 89 (60-115) mg/dL Calcium 8.7 8.2 L (8.4-10.6) mg/dL Adrenal panel 06/09/22 06/09/22 06/10/22 Range/Units 23:00 23:00 06:28 Sodium 139 140 (135-149) mmol/L Potassium 4.0 4.1 (3.6-5.1) mmol/L Chloride 110 112 (96-114) mmol/L Carbon Dioxide 26 24 (20-32) mmol/L BUN 22 23 (7-30) mg/dL Creatinine 0.9 0.9 (0.5-1.5) mg/dL Glucose 99 89 (60-115) mg/dL Calcium 8.7 8.2 L (8.4-10.6) mg/dL Total Bilirubin 0.8 Cancelled 1.1 (0.1-1.5) mg/dL AST 23 Cancelled 22 (12-35) U/L ALT 25 Cancelled 23 (4-50) U/L Alkaline Phosphatase 61 Cancelled 50 (40-150) U/L Total Protein 6.5 Cancelled 5.9 L (6.0-8.3) g/dL Albumin 3.8 Cancelled 3.4 (3.3-5.0) g/dL All other labs normal. Imaging Abdominal x-ray: report reviewed and image reviewed Assessment and Plan Assessment and plan (1) Acute lower GI bleeding: Status: Acute Plan Patient is a 72-year-old male, hospitalized for repeated episodes of hematochezia. Given his previous episodes of diverticular bleeds, this is likely to be an acute episode. Would also consider an upper GI bleeding source, especially given the patient's history of recent NSAID use. At this time recommend continued supportive measurements with fluid resuscitation and trend hemoglobins. In regards to diagnostic studies recommend an upper and lower endoscopy, in order to try and find, as well as treat ongoing bleeding. Given the copious amount of stool still within the patient's colon Would recommend bowel prep with GoLYTELY. Will plan for scoping tomorrow at noon under mac sedation. If patient becomes hemodynamically unstable or continues to have a copious amount of ongoing bleeding would recommend further imaging with CT angiography and possible IR embolization. This would require transfer to a larger institution.
[2022-06-10] MEDS: LACTATED RINGERS 1000 ML 1,000 ML 75 ML IV ×2 (11:02→22:58)
--- NOTE | 2022-06-10 11:02 | P.IMHP_ITS ---
Hospitalist- H&P: HPI History of Present Illness Time Seen by Provider: 10:45 Date Seen: 06/10/22 Chief complaint: previous diverticulitis, possible GI bleed Narrative: Praful Carbajal is a 72 year old male who has had bright red blood per rectum off and on. Had a colonoscopy by Dr. Mora 04/24/2022 for unexplained GI bleeding and a less than 1 mm polyp was found the cecum and removed. He had multiple diverticula with no diverticular bleeding. It was otherwise fairly unremarkable. Yesterday evening he had 3 episodes of bloody stool in rapid succession with some clots. He has not had any abdominal discomfort or cramping. This morning around 4 am he had a bloody stool with clots. At 9am, he had a small BM with a cranberry sized red clot, no other blood. Dr. Eden from general surgery saw him this morning and has recommended that he undergo EGD and colonoscopy tomorrow with prep today. She is planning to use MAC for anesthesia. Praful is an active person who does pushups every morning along with other cardiovascular exercises throughout the day such as stationary bike. He also shovels snow. He denies any chest pain or shortness of breath. Mets greater than 4. Review of Systems Status of ROS: Reports: 6 or more systems reviewed and unremarkable except as noted in History and below PFSH PFSH Medical History (Updated 06/10/22 @ 11:28 by Neha Zuñiga MD) Basal cell carcinoma Colon polyp Diverticulitis Hyperlipidemia Hypertension Surgical History (Updated 06/10/22 @ 10:40 by Neha Zuñiga MD) Hx of colonoscopy S/P patent foramen ovale closure (~2004) Family History (Updated 06/10/22 @ 10:42 by Neha Zuñiga MD) Brother Diabetes Kidney disease Kidney transplanted Paternal Grandfather Diabetes Father Myocardial infarction Social History (Updated 06/10/22 @ 11:11 by Neha Zuñiga MD) Narrative: Retired from [employer]. . Lifelong nonsmoker. EtoH 1-2 beers per week. Denies recreational drugs. Full Code. Highest level of school completed/degree received: some college, no degree Smoking Status: Never smoker Do you use any of these nicotine containing products: None Second hand tobacco smoke exposure: No How often do you have a drink containing alcohol: 2-3 times a week How many standard drinks containing alcohol do you have on a typical day: 1 or 2 AUDIT-C Alcohol total score: 3 Non-prescribed substance use: denies use Caffeine: Yes service: No Meds Home Medications and Allergies Home Medications Medication Instructions Recorded Confirmed Type atorvastatin 20 mg tablet 20 mg PO HS 06/10/22 06/10/22 History lisinopril 10 mg tablet 10 mg PO DAILY 06/10/22 06/10/22 History Allergies Allergy/AdvReac Type Severity Reaction Status Date / Time No Known Drug Allergies Allergy Verified 04/07/22 12:16 Exam Narrative: Exam Narrative: General: No acute distress. Awake alert oriented x3. HEENT: Normocephalic atraumatic, pupils equally round and reactive to light and accommodation. Oropharynx clear. Mucous membranes are moist. No cervical lymphadenopathy, thyromegaly or carotid bruits. No JVD. Cardiovascular: Regular rate and rhythm. No murmurs, gallops, or rubs. Chest: No increased work of breathing. Clear to auscultation bilaterally. No crackles or wheezes. Abdomen: Bowel sounds present. Soft, nondistended, nontender. No hepatosplenomegaly or masses. Extremities: No edema, no cyanosis or clubbing. Const: Vital Signs, click to edit/add: Vital Signs - 24 hr 06/09/22 21:27 06/09/22 21:52 06/09/22 21:53 Temperature 97.6 F Pulse Rate 64 66 Pulse Rate [Left P ulse Oximeter] Pulse Rate [Pulse Oximeter] 76 Pulse Rate [orthos tatic lying Left P ulse Oximeter] Pulse Rate [orthos tatic sitting Left Pulse Oximeter] Pulse Rate [orthos tatic standing Lef t Pulse Oximeter] Respiratory Rate 16 Blood Pressure 138/87 Blood Pressure [Le ft Arm] Blood Pressure [Ri ght Upper Arm] 145/94 H Blood Pressure [or thostatic lying Le ft Arm] Blood Pressure [or thostatic sitting Left Arm] Blood Pressure [or thostatic standing Left Arm] Pulse Oximetry 94 95 95 Oxygen Delivery Me thod 06/09/22 22:00 06/09/22 22:02 06/09/22 22:03 Temperature Pulse Rate 64 64 65 Pulse Rate [Left P ulse Oximeter] Pulse Rate [Pulse Oximeter] Pulse Rate [orthos tatic lying Left P ulse Oximeter] Pulse Rate [orthos tatic sitting Left Pulse Oximeter] Pulse Rate [orthos tatic standing Lef t Pulse Oximeter] Respiratory Rate Blood Pressure 146/85 H Blood Pressure [Le ft Arm] Blood Pressure [Ri ght Upper Arm] Blood Pressure [or thostatic lying Le ft Arm] Blood Pressure [or thostatic sitting Left Arm] Blood Pressure [or thostatic standing Left Arm] Pulse Oximetry 95 96 95 Oxygen Delivery Me thod 06/09/22 22:30 06/09/22 22:31 06/09/22 23:00 Temperature Pulse Rate 63 62 65 Pulse Rate [Left P ulse Oximeter] Pulse Rate [Pulse Oximeter] Pulse Rate [orthos tatic lying Left P ulse Oximeter] Pulse Rate [orthos tatic sitting Left Pulse Oximeter] Pulse Rate [orthos tatic standing Lef t Pulse Oximeter] Respiratory Rate Blood Pressure 144/85 H Blood Pressure [Le ft Arm] Blood Pressure [Ri ght Upper Arm] Blood Pressure [or thostatic lying Le ft Arm] Blood Pressure [or thostatic sitting Left Arm] Blood Pressure [or thostatic standing Left Arm] Pulse Oximetry 97 95 96 Oxygen Delivery Me thod 06/09/22 23:02 06/09/22 23:03 06/09/22 23:34 Temperature Pulse Rate 60 65 61 Pulse Rate [Left P ulse Oximeter] Pulse Rate [Pulse Oximeter] Pulse Rate [orthos tatic lying Left P ulse Oximeter] Pulse Rate [orthos tatic sitting Left Pulse Oximeter] Pulse Rate [orthos tatic standing Lef t Pulse Oximeter] Respiratory Rate Blood Pressure 131/84 Blood Pressure [Le ft Arm] Blood Pressure [Ri ght Upper Arm] Blood Pressure [or thostatic lying Le ft Arm] Blood Pressure [or thostatic sitting Left Arm] Blood Pressure [or thostatic standing Left Arm] Pulse Oximetry 95 95 96 Oxygen Delivery Me thod 06/09/22 23:35 06/10/22 00:02 06/10/22 02:00 Temperature 97.6 F Pulse Rate 61 59 L Pulse Rate [Left P ulse Oximeter] Pulse Rate [Pulse Oximeter] 79 Pulse Rate [orthos tatic lying Left P ulse Oximeter] Pulse Rate [orthos tatic sitting Left Pulse Oximeter] Pulse Rate [orthos tatic standing Lef t Pulse Oximeter] Respiratory Rate 16 16 16 Blood Pressure 148/91 H 152/83 H Blood Pressure [Le ft Arm] Blood Pressure [Ri ght Upper Arm] 135/84 Blood Pressure [or thostatic lying Le ft Arm] Blood Pressure [or thostatic sitting Left Arm] Blood Pressure [or thostatic standing Left Arm] Pulse Oximetry 96 96 96 Oxygen Delivery Me thod 06/10/22 02:29 06/10/22 03:06 06/09/22 21:45 Temperature 97.6 F Pulse Rate Pulse Rate [Left P ulse Oximeter] 54 L Pulse Rate [Pulse Oximeter] Pulse Rate [orthos tatic lying Left P ulse Oximeter] 65 Pulse Rate [orthos tatic sitting Left Pulse Oximeter] 60 Pulse Rate [orthos tatic standing Lef t Pulse Oximeter] 61 Respiratory Rate 18 Blood Pressure Blood Pressure [Le ft Arm] 161/91 H Blood Pressure [Ri ght Upper Arm] Blood Pressure [or thostatic lying Le ft Arm] 155/88 H Blood Pressure [or thostatic sitting Left Arm] 148/84 H Blood Pressure [or thostatic standing Left Arm] 137/65 Pulse Oximetry 96 98 Oxygen Delivery Me thod Room Air 06/10/22 02:30 Temperature 97.6 F Pulse Rate Pulse Rate [Left P ulse Oximeter] Pulse Rate [Pulse Oximeter] 79 Pulse Rate [orthos tatic lying Left P ulse Oximeter] Pulse Rate [orthos tatic sitting Left Pulse Oximeter] Pulse Rate [orthos tatic standing Lef t Pulse Oximeter] Respiratory Rate 16 Blood Pressure Blood Pressure [Le ft Arm] Blood Pressure [Ri ght Upper Arm] 135/84 Blood Pressure [or thostatic lying Le ft Arm] Blood Pressure [or thostatic sitting Left Arm] Blood Pressure [or thostatic standing Left Arm] Pulse Oximetry [facility]: Result Labs Labs: Short CBC 06/09/22 06/10/22 Range/Units 23:00 06:28 WBC 4.86 6.07 (4.50-11.00) K/uL Hgb 13.0 L 11.3 L (13.5-17.5) gm/dL Hct 39.0 34.5 L (37.0-53.0) % Plt Count 180 174 (140-440) K/uL BMP 06/09/22 06/10/22 23:00 06:28 Sodium 139 140 Potassium 4.0 4.1 Chloride 110 112 Carbon Dioxide 26 24 BUN 22 23 Creatinine 0.9 0.9 Glucose 99 89 Calcium 8.7 8.2 L Liver Function 06/09/22 06/09/22 06/10/22 Range/Units 23:00 23:00 06:28 Total Bilirubin 0.8 Cancelled 1.1 (0.1-1.5) mg/dL Direct Bilirubin 0.1 Cancelled (0.0-0.5) mg/dL AST 23 Cancelled 22 (12-35) U/L ALT 25 Cancelled 23 (4-50) U/L Alkaline Phosphatase 61 Cancelled 50 (40-150) U/L Albumin 3.8 Cancelled 3.4 (3.3-5.0) g/dL Ordering Physician: Neel Salas M.D. Date of Service: 06/09/22 Procedure(s): XR abdomen min 2V Accession Number(s): [id number] cc: Tommie Singh M.D.; Neel Salas M.D.~ For Patients: As a result of the Century Cures Act, medical imaging exams and procedure reports are released immediately into your electronic medical record. You may view this report before your referring provider. If you have questions, please contact your health care provider. Indication: GI bleed Technique: KUB 2 view Comparison: None Findings/Impression: : Soft tissues: No suspicious calcifications to suggest kidney or ureteral stones. No sign of free air. No sign of soft tissue mass. Bowel: Large amount of stool in the colon. Bones: Mild levoscoliosis. Two tiny metallic densities project over the T8 vertebral body of unknown etiology. Dictated by Tanisha Canela MD @ 06/09/2022 11:57:50 PM (Electronically Signed) EKG 06/10/22 Sinus bradycardia with 1st degree AVB, NH 230 ms, 52 bpm. Assessment and Plan Assessment and plan (1) Acute lower GI bleeding: Problem comment: Recent colonocopy shows no bleeding. Currently stable, BP okay. Mild decrease in Hgb. Planning repeat colonoscopy tomorrow with EGD. Preop - METs >4, EKG okay. Proceed with planned prep and procedure. Status: Acute (2) Acute blood loss anemia: Problem comment: Hgb 13 -> 11.3, no indication for transfusion at this time. Status: Acute (3) Hypertension: Problem comment: hold antihypertensive Status: Acute (4) Hyperlipidemia: Problem comment: LDL goal <70 Status: Acute
[2022-06-10] MEDS: PEG-3350 SODIUM CL/BICARB-KCL 4,000 ML SOLN 4000 ML PO (16:04)
--- NOTE | 2022-06-10 16:34 | PC.NURSE ---
Pt has been alert and oriented all shift. Pt has had no pain during shift. Pt is independent with ADL's and voiding frequently. Pt has had one small stool in late am with minimal blood. Pt is NPO.Pt has been vitally stable during shift.
[2022-06-10] MEDS: SODIUM CHLORIDE 0.9 % (FLUSH) 10 ML SYRINGE 5 ML IVF (20:47)
[2022-06-11] VITALS (9 sets, daily range): BP systolic 143–179; BP diastolic 83–104; PULSE 60–86; RESP 16–18; TEMP 36.3–36.9; O2SAT 96–100
--- NOTE | 2022-06-11 05:48 | PC.NURSE ---
Shift note: Pt is doing well this morning. No BM and GI bleeding observed. No pain reported. Vitally stable. Had adequate sleep.
[2022-06-11 06:40] LABS: Hemoglobin* 11.5 gm/dL (13.5-17.5)
[2022-06-11] MEDS: PANTOPRAZOLE SODIUM 40 MG INJ IVP (09:18)
[2022-06-11] MEDS: SODIUM CHLORIDE 0.9 % (FLUSH) 10 ML SYRINGE 5 ML IVF (09:18)
--- NOTE | 2022-06-11 11:44 | W.ANESCHARGE ---
Anesthesia Charges Start Date/Time Anesthesia Start Date: 06/11/22 Anesthesia Start Time: 11:59 Stop Date/Time Anesthesia Stop Date: 06/11/22 Anesthesia Stop Time: 12:58 Summary Extremes of Age - Over 70 or under 1: MDA
--- NOTE | 2022-06-11 11:56 | PC.NURSE ---
Pt has had roughly 6 or 7 bowel movements since 729, first BMs dark brown liquid, finished Golytely around 10am, and most recent BMs pale yellow chase, sediment noted at bottom of toilet, endo RN shown. Pt left for EGD/colonscopy around 1145am this shift, awaiting pt's return at this time.
--- NOTE | 2022-06-11 13:05 | W.ANESCHARGE ---
Anesthesia Charges Start Date/Time Anesthesia Start Date: 06/11/22 Anesthesia Start Time: 11:59 Stop Date/Time Anesthesia Stop Date: 06/11/22 Anesthesia Stop Time: 12:58 Summary Extremes of Age - Over 70 or under 1: MID LEVEL CLINICIAN
--- NOTE | 2022-06-11 14:36 | PC.NURSE ---
Pt alert, oriented and pleasant. Vitals stable, on RA. Pt denies pain, denies dizziness/lightheadedness and denies nausea. Pt ind at baseline. Vitals stable post endoscopy and colonscopy, tolerated lunch, eating 100%, ambulated in hallway and did well. Pt's IV removed intact w/o difficulty. Discharge instructions reviewed with pt. Pt escorted to 's car via wheelchair, no issues.
== END 2022-06-11 14:40 | disposition home or self-care (01) ==
LOC: ED 06-10 01:48 → MEDSURG 06-10 02:18
PROVIDERS: Family Medicine; Internal Medicine; Admitting Provider Family Medicine; Emergency Provider Family Medicine; PCP Surgery; Visit Provider Family Medicine
DX: K92.2 Gastrointestinal hemorrhage, unspecified (principal); D62 Acute posthemorrhagic anemia; K92.1 Melena; U07.1 COVID-19; I10 Essential (primary) hypertension; E78.5 Hyperlipidemia, unspecified; Z87.19 Personal history of other diseases of the digestive system
CPT/HCPCS: 36415; 43235; 45378; 74019; 80048; 80053; 80076; 813; 85018; 85025; 85610; 85730; 86140; 86850; 86900; 86901; 87426; 87635; 93005; 94761; 99100; 99199; 99284; 99285; 99291; C9113; G0378; J2704; J7030; J7120

== ENCOUNTER 2022-10-16 13:50 | Outpatient (CLI) | payer MEDICARE, SELFPAY ==
--- OUTSIDE RECORDS SUMMARY | 2022-10-21 11:44 | XMS_ITS | Patient Health Record ---
Author Name Unknown Organization [facility] Care Team Providers Care Usability Architect Name Role Phone Placido Girard Unavailable [phone] Tracey Banuelos Unavailable [phone] Millie Morrell Unavailable [phone] Christy Estrada CMA Unavailable Vitaly Tapia Unavailable [phone] CRESCENCIO Akers Unavailable [phone] Jason Gutierrez Unavailable [phone] Rashard Davidson Unavailable [phone] Iron Mayfield Unavailable [phone] Lina Munson Unavailable [phone] Jose Fam Unavailable [phone] Deysi Price Unavailable [phone] Nasreen Pineda Unavailable [phone] Guero, Provider Unavailable Sully Dahl Unavailable [phone] Neel Gunn Unavailable [phone] PROBLEMS Type Condition ICD9-CM Code SVW46-RI Code Onset Dates Condition Status W/U Status Risk SNOMED Code Notes Problem Hyperlipidemi a, unspecified hyperlipidemi a type E78.5 confirmed 37327581 Problem Essential hypertension I10 confirmed 10054298 Problem Hyperlipidemi a 272.4 confirmed 96055101 Problem Other and unspecified hyperlipidemi a E78.5 confirmed 55167508 Problem Gastro-esopha geal reflux disease without esophagitis K21.9 confirmed 600222209 Problem History of colon polyps Z86.010 confirmed [id number] ALLERGIES No Known Allergies ENCOUNTERS from 1950 to 2022-10-21 Encounter Location Date Provider Diagnosis [facility] [address] [id number] Sep, Placido Girard [facility] [address] [id number] Apr, Provider [facility] Hyperlipidemia, unspecified hyperlipidemia type E78.5 and Essential hypertension I10 [address] [id number] Jan, Tracey Banuelos Hyperlipidemia, unspecified hyperlipidemia type E78.5 ; Encounter for Medicare annual wellness exam Z00.00 ; Essential hypertension I10 and Prostate cancer screening Z12.[address] [id number] Jan, Sully Dahl [address] [id number] Dec, Neel Gunn [address] [id number] Apr, Jason Gutierrez History of colon polyps Z86.[address] [id number] Jan, Jason Gutierrez Encounter for immunization Z23 [address] [id number] Oct, Jason Gutierrez Encounter for immunization Z23 ; Adult general medical exam Z00.00 ; Other and unspecified hyperlipidemia E78.5 ; Encounter for prostate cancer screening Z12.5 and Screening for thyroid disorder Z13.[address] [id number] Jan, Jason Gutierrez Encounter for immunization Z23 [address] [id number] Jan, Jason Gutierrez Acute bronchitis, unspecified J20.9 [facility] [address] [id number] Jan, Jason Gutierrez Encounter for immunization Z23 [facility] [place] [address] [place] [address] [id number] Jul, Jason Gutierrez [facility] [address] [id number] Jul, Jason Gutierrez Other and unspecified hyperlipidemia E78.5 and Gastro-esophageal reflux disease without esophagitis K21.9 [facility] [address] [place], [place] [id number] Jul, Jason Gutierrez [facility] [address] [facility], [address] [place], [place] [id number] Apr, Rashard Davidbers Bronchitis J40 [facility] [address] [id number] Feb, Jason Gutierrez Acute bronchitis J20.9 [facility] [address] [id number] Feb, Jason Gutierrez Hyperlipidemia, unspecified E78.5 [facility] [address] [id number] Jan, Jason Gutierrez Encounter for immunization Z23 [facility] [address] [id number] Nov, Jason Gutierrez [facility] [address] [id number] Oct, Jason Gutierrez Hyperlipidemia, unspecified E78.5 ; Gastro-esophageal reflux disease without esophagitis K21.9 and Encounter for screening for malignant neoplasm of prostate Z12.5 [facility] [address] [id number] Oct, Iorn Mayfield [facility] [address] [id number] Sep, Iron [place]field [facility] [address] [id number] May, Iron [place] [facility] [address] [id number] May, Iron [place] Bronchitis J40 ; Cervical mass N88.8 and Nodule of neck R22.1 [facility] [address] [id number] Feb, [facility] Encounter for immunization Z23 [facility] [address] [id number] Sep, Vitaly Tapia [facility] [address] [id number] August, Vitaly Tapia Viral syndrome 079.99 ; Hyperlipidemia 272.4 and Need for pneumococcal vaccine V03.82 [facility] [address] [id number] Jul, Vitaly Tapia [facility] [address] [id number] Jan, [facility] Need for prophylactic vaccination and inoculation, Influenza V04.81 [facility] [address] [id number] Oct, Vitaly Tapia [facility] [address] [id number] Oct, Vitaly Tapia [facility] [address] [id number] Sep, Vitaly Tapia Hearing loss 389.9 [facility] [address] [id number] August, Vitaly Tapia [facility] [address] [id number] August, Lina rhiannaGarcia Cough 786.2 and Acute sinusitis 461.9 [facility] [address] [id number] Jul, Vitaly Regina Hyperlipidemia 272.4 ; Need for vaccination against Streptococcus pneumoniae V03.82 and Medial epicondylitis of right elbow 726.31 [facility] [address] [id number] Jul, Vitaly Regina [facility] [address] [id number] May, Vitaly Tapia Acute sinusitis 461.9 [facility] [address] [id number] Feb, [facility] Need for prophylactic vaccination and inoculation, Influenza V04.81 [facility] [address] [id number] Feb, Vitaly Tapia [facility] [address] [id number] Nov, Vitaly Tapia Hyperlipidemia 272.4 [facility] [address] [id number] Jul, Vitaly Regina Hyperlipidemia 272.4 [facility] [address] [id number] Jul, Vitaly Tapia [facility] [address] [id number] Jun, Jason Gutierrez Acute bronchitis 466.0 [facility] [address] [id number] Apr, Vitaly Tapia [facility] [address] [id number] Mar, Vitaly Tapia DIVERTICULITIS COLON W/HEMORRHAGE 562.13 and Dietary surveillance and counseling V65.3 [facility] [address] [place], [place] [id number] Mar, Vitaly Tapia [facility] [address] [id number] Mar, Vitaly Tapia [facility] [address] [facility],[address] [place] [id number] Mar, Vitaly rihannaJanakcas [facility] [address] [place], [place] [id number] Mar, Vitaly rhiannaJanakcas [facility] [address] [place] [address] [id number] Mar, Vitaly Tapia Blood in stool 578.1 ; Dietary surveillance and counseling V65.3 and Need for prophylactic vaccination and inoculation, Influenza V04.81 [facility] [address] [place] [address] [id number] Jan, Vitaly Regina [facility] [address] [place] [address] [id number] Oct, Vitaly Regina [facility] [place] [address] [place] [address] [id number] Jul, Vitaly Tapia Hyperlipidemia 272.4 ; Need for prophylactic vaccination and inoculation, Other viral diseases V04.89 ; Blood loss anemia 280.0 and Other specified counseling V65.49 [facility] [place] [address] [place], [place] [id number] Jul, Vitaly Regina [facility] [address] [place] [address] [id number] Mar, Vitaly Tapia [facility] [place] [address] [place] [address] [id number] Mar, [facility] Need for prophylactic vaccination and inoculation, Influenza V04.81 [facility] [address] [place], [place] [id number] Nov, [facility] Anemia NOS 285.9 [facility] [address] [place] [address] [id number] Nov, Vitaly Tapia Hyperlipidemia 272.4 [facility] [place] [address] [place] [address] [id number] Oct, Vitaly Tapia GI bleeding NOS 578.9 and Anemia NOS 285.9 [facility] [address] [place], [place] [id number] Jul, Vitaly Tapia GI bleeding NOS 578.9 and Need for prophylactic vaccination and inoculation, Influenza V04.81 [facility] [address] [place] [address] [id number] Jun, Vitaly Tapia [facility] [place] [address] [place] [address] [id number] Jun, Vitaly Tapia [facility] [place] [address] [place] [address] [id number] Apr, Vitaly Tapia Hyperlipidemia 272.4 [facility] [place] [address] [place] [address] [id number] Apr, Vitaly Tapia ROUTINE MEDICAL EXAM V70.0 ; Hyperlipidemia 272.4 and Special screening for malignant neoplasm of prostate V76.44 [facility] [address] [place] [address] [id number] Mar, Vitaly Tapia [facility] [place] [place] [address] [place] [address] [id number] Mar, Vitaly Tapia [facility] [address] [place] [address], [address] [place], [place] [id number] Jan, Jose Fam Acute bronchitis 466.0 [facility] [address] [id number] Apr, Vitaly Tapia [facility] [place] [place] [address] [place] [address] [id number] Nov, Vitaly Tapia [facility] [place] [address] [place] [address] [id number] Oct, Vitaly Tapia Hyperlipidemia 272.4 and SCREEN-DIABETES MELLITUS V77.1 [facility] [address] [place] [address] [id number] Sep, Vitaly Tapia [facility] [address] [facility], [address] [place], [place] [id number] August, Deysi Price Acute bronchitis NOS 466.0 and Acute pharyngitis 462 [facility] [place] [address] [place] [address] [id number] Jul, Vitaly Tapia [facility] [address] [place] [address],[address] [place], [place] [id number] Jul, Jose Fam Acute bronchitis 466.0 [facility] [address] [place] [address] [id number] Jun, Vitaly Tapia Bronchitis NOS 490 ; Hyperlipidemia 272.4 and SCREEN-DIABETES MELLITUS V77.1 [facility] [address] [place] [address] [id number] May, Vitaly Tapia [facility] [place] [address] [place] [address] [id number] Mar, Vitaly Tapia [facility] [address] [id number] Mar, Vitaly Tapia [facility] [place] [address] [place] [address] [id number] Jan, Vitaly Tapia Bronchitis NOS 490 ; Hyperlipemia 272.4 ; Special screening for malignant neoplasm of prostate V76.44 and Qognwmnmdl-sibptbh-sbl tussis, combined [DTP] [DtaP] V06.1 [facility] [place] [address] [place] [address] [id number] Mar, Vitaly Tapia [facility] [place] [place] [address] [place] [address] [id number] Dec, Vitaly Tapia Bronchitis NOS 490 [facility] [place] [place] [address] [place] [address] [id number] May, Vitaly Tapia Bronchitis NOS 490 [facility] [address] [id number] Apr, [facility] VACCIN FOR INFLUENZA V04.81 [facility] [address] [id number] Jan, Vitaly Regina Hyperlipemia 272.4 and Special screening for malignant neoplasm of prostate V76.44 [facility] [address] [place], [place] [id number] Sep, Vitaly weiSoumya [facility] [address] [place], [place] [id number] Jun, Nasreen moctezumaVu Parotiditis 527.2 and Costochondritis 733.6 [facility] [address] [place], [place] [id number] Jun, Vitaly Regina Acute lymphadenitis 683 [facility] [address] [place] [address] [id number] Apr, Jason rhiannaBertnatashabenny [facility] [address] [place], [place] [id number] Jan, Vitaly weiSuomya [facility] [address] [place] [address] [id number] Nov, Vitaly Tapia [facility] [address] [place] [address] [id number] Apr, Vitalycris Tapia IMMUNIZATIONS Vaccine Route Administration [...] smoker REASON FOR REFERRAL from 1950 to 2022-10-21 Reason SPE Routine Eye exam AuthType [facility] Diagnosis 1 EYE & VISION EXAMINA TION (V72.0) Referral Organization [facility] Referring Provider First Name Vitaly Referring Provider Last Name Regina Referring Provider Specialty Family Prac claire Referred Organization [facility] Referred Address [address],[place], [place],[address] Referred Provider Specialty Ophthalmolog y Referral Priority Routine General Notes pts Reason Colonoscopy AuthType SPECIALIST Diagnosis 1 SCREEN MALIG NEOP-CO GRECIA (V76.51) Referral Organization [facility] Referring Provider First Name Vitaly Referring Provider Last Name Regina Referring Provider Specialty Family Prac claire Referred Organization [facility] Referred Address [address] [place] [address] Referred Provider Specialty Gastroentero logy Referral Priority [...] that I will send order [facility] to [facility] and that they will contact him to schedule...done appt on 01/04/09 Reason LEW Goldman--f/u diverticular bleed AuthType SPECIALIST Diagnosis 1 GI bleeding NOS (578 .9) Referral Organization [facility] Referring Provider First Name Vitaly Referring Provider Last Name Regina Referring Provider Specialty Family Prac claire Referred Organization [facility] Referred Address [address] [place], [place],[address] Referred Provider Specialty Gastroentero logy Referral Priority Routine General Notes Kristina Farris 07/25/2010 3: 30:34 PM >order sent to Gastro Reason [place] [facility] AuthType SPECIALIST Diagnosis 1 Hearing loss (389.9) Referral Organization [facility] Referring Provider First Name Vitaly Referring Provider Last Name Regina Referring Provider Specialty Family Prac claire Referred Organization [facility] Referred Address [address],[place], [place],[address] Referred Provider Specialty ENT Referral Priority Routine [...] Provider Specialty Family Prac claire Referred Organization [facility] Referred Address [address] [place], [place],[address] Referred Provider Specialty Radiology Referral Priority Routine General Notes nodule R side of nec k, Thyroid nodule? ultrasound neck Millie Morrell 05/31/2015 9:52:48 AM >Rsvl--appt on 06/01/15 @ 115pm Reason Colonoscopy AuthType SPECIALIST Diagnosis 1 History of colon lydia yps (Z86.010) Referral Organization [facility] Referring Provider First Name Jason Referring Provider Last Name Matt Referring Provider Specialty Family Prac claire Referred Organization [facility] Referred Provider TONO GRIDER Referred Address [address] [place], [place],[address] Referred Provider Specialty Gastroentero logy Referral Priority Routine General Notes Millie Morrell 05/27/2019 3:04:37 PM >Wilbur ANDERSON, Halina Freitas at [facility] on 06/10/2019 at 08:00 AM VITAL SIGNS from 1950 to 2022-10-21 Height 71.25 in Jan, Weight 209.3 lbs [...] a day Active PROCEDURES from 1950 to 2022-10-21 Procedure Date Ordered Date Performed Result Body Sit e Functional Screen Assessment 2014-08-21 No Fall s Functional Screen Assessment 2015-05-31 N/A Functional Screen Assessment 2016-08-05 Negativ e Functional Screen Assessment 2020-02-01 done at visit RESULTS from 1950 to 2022-10-21 Component Value Reference Range Notes Basic Metabolic Profile Reviewed date:02/06/2020 08:48:02 Interpretation:Normal Performing Lab:, [facility] [address] [place] [address] Notes/Report: ANION GAP, CALCULATION 10 mmol/L 5-18 [...] Interpretation:LDL 59 on atorvastastin 20 Performing Lab:, [facility] [address] [place] [address] Notes/Report: CHOLESTEROL 130 mg/dL <=199 mg/dL HDL CHOLESTEROL 37 mg/dL >=40 mg/dL LDL CHOLESTEROL CALCULATED 59 mg/dL <=129 mg/dL TRIGLYCERIDES 168 mg/dL <=149 mg/dL PSA SCREENING Reviewed date:02/06/2020 08:46:39 Interpretation:0.8 Performing Lab:, [facility] [address] [place] [address] Notes/Report: PROSTATE SPECIFIC ANTIGEN 0.8 ng/mL 0.0-6.5 ng/mL Colonoscopy Reviewed date:06/16/2019 14:56:17 Interpretation:hyperplastic polyp, repeat 5 yrs Performing Lab: Notes/Report: COMPREHENSIVE METABOLIC Reviewed date:11/12/2018 14:38:53 Interpretation: Performing Lab:, [facility] [address] [place] [address] 09869 Notes/Report: ALBUMIN 3.9 g/dL 3.5-5.0 g/dL ALKALINE [...] CASCADE Reviewed date:11/12/2018 14:39:11 Interpretation: Performing Lab:, [facility] [address] [place] [address] 9[address]78 Notes/Report: THYROID STIMULATING HORMONE 1.13 uIU/mL 0.30-5.00 uIU /mL HEMOGRAM II w/o diff Reviewed date:11/12/2018 14:38:34 Interpretation: Performing Lab:, [facility] [address] [place] [address] 26695 Notes/Report: HEMATOCRIT 43.1 % 40.0-54.0 % HEMOGLOBIN [...] CASCADE Reviewed date:11/12/2018 14:37:23 Interpretation: Performing Lab:, [facility] [address] [place] [address] Notes/Report: CHOLESTEROL 117 mg/dL <=199 mg/dL HDL CHOLESTEROL 38 mg/dL >=40 mg/dL LDL CHOLESTEROL CALCULATED 62 mg/dL <=129 mg/dL TRIGLYCERIDES 85 mg/dL <=149 mg/dL PSA SCREENING Reviewed date:11/12/2018 14:37:43 Interpretation: Performing Lab:, [facility] [address] [place] [address] 76848 Notes/Report: PROSTATE SPECIFIC ANTIGEN 0.3 ng/mL 0.0-6.5 ng/mL COMPREHENSIVE METABOLIC Reviewed date:08/08/2016 15:22:44 Interpretation: Performing Lab:, [facility].[address] [address] Notes/Report: ALBUMIN 3.9 g/dL 3.5-5.0 g/dL ALKALINE [...] CASCADE Reviewed date:08/08/2016 15:23:00 Interpretation: Performing Lab:, [facility] [address] [place] [address] 73044 Notes/Report: CHOLESTEROL 124 mg/dL <=199 mg/dL HDL [...] METABOLIC Reviewed date:11/16/2015 17:02:57 Interpretation: Performing Lab:, [facility] [address] [place] [address] 58[address] Notes/Report: ALBUMIN 4.0 g/dL 3.5-5.0 g/dL ALKALINE [...] CASCADE Reviewed date:11/16/2015 17:04:32 Interpretation: Performing Lab:, [facility] [address] [place] [address] 14039 Notes/Report: CHOLESTEROL 136 mg/dL <=199 mg/dL HDL CHOLESTEROL 41 mg/dL >=40 mg/dL LDL CHOLESTEROL CALCULATED 74 mg/dL <=129 mg/dL TRIGLYCERIDES 107 mg/dL <=149 mg/dL PSA SCREENING Reviewed date:11/16/2015 17:03:22 Interpretation: Performing Lab:, [facility] [address] [place] [address] 21960 Notes/Report: PROSTATE SPECIFIC ANTIGEN 0.4 ng/mL 0.0-4.5 [...] Profile Reviewed date:06/16/2015 05:16:45 Interpretation: Performing Lab:, [facility] [address] [place] [address] 61218 Notes/Report: ANION GAP, CALCULATION 10 mmol/L 5-18 [...] CASCADE Reviewed date:06/16/2015 05:16:45 Interpretation: Performing Lab:, [facility] [address] [place] [address] 92319 Notes/Report: THYROID STIMULATING HORMONE 1.29 uIU/mL 0.30-5.00 uIU /mL Ultrasound : Neck and/or Lym ph Nodes Reviewed date:06/16/2015 05:16:45 Interpretation: Performing Lab: Notes/Report: LIPID CASCADE Reviewed date:08/23/2014 08:46:55 Interpretation:LDL 63 goal less than 100 Performing Lab:, [facility] [address] [place] [address]276 Notes/Report: CHOLESTEROL 131 mg/dL <=199 mg/dL HDL [...] 83 goal less than 100 Performing Lab:, [facility] [address] [place] [address] Notes/Report: Cholesterol 151 mg/dL < 200 mg/dL HDL Cholesterol 41 mg/dL >39 mg/dL LDL Cholesterol, Calculated 83 mg/dL < 130 mg/dL Triglycerides 135 mg/dL < 150 mg/dL LIPID CASCADE Reviewed date:08/16/2012 16:02:52 Interpretation:LDL 86 goal less than 100 Performing Lab:, [facility] [address] [place] [address] Notes/Report: Cholesterol 158 mg/dL < 200 mg/dL [...] FERRITIN Reviewed date:08/15/2011 10:13:30 Interpretation:Normal Performing Lab:, [facility], [address] [place] [address] Notes/Report: Ferritin 28 ng/mL 27-300 ng/mL LIPID CASCADE Reviewed date:08/15/2011 10:10:46 Interpretation:LDL 75 goal less than 100 Performing Lab:, [facility], [address], [place] - [address] Notes/Report: Cholesterol 136 mg/dL < 200 mg/dL [...] SATURATION Reviewed date:08/15/2011 10:13:08 Interpretation:Normal Performing Lab:, [facility] [address] [place] [address] Notes/Report: Iron 105 ug/dL 42-175 ug/dL Transferrin [...] TSH Reviewed date:10/23/2010 07:52:22 Interpretation:Normal Performing Lab:, [address] [address] Notes/Report: FERRITIN Reviewed date:10/23/2010 07:52:03 Interpretation:9 Performing Lab:, [address] [address] Notes/Report: Ferritin 9 ng/mL 27-300 ng/mL VITAMIN B12 Reviewed date:10/23/2010 07:51:17 Interpretation:Normal Performing Lab:, [address] [address] Notes/Report: Vitamin B12 403 pg/mL 223-1132 pg/mL [...] SATURATION Reviewed date:10/23/2010 07:56:11 Interpretation:sat@7% Performing Lab:, [address] [address] Notes/Report: Iron 27 ug/dL 42-175 ug/dL Transferrin [...] (SGOT) Reviewed date:05/14/2010 17:08:42 Interpretation:Normal Performing Lab:, [facility] [address] [place] [address] Notes/Report: AST (SGOT) 16 IU/L < 41 IU/L LIPID CASCADE Reviewed date:05/14/2010 17:11:16 Interpretation:LDL@79 goal <100 Performing Lab:, [place] [address] Notes/Report: Cholesterol 147 mg/dL < 200 mg/dL HDL Cholesterol 40 mg/dL >39 mg/dL LDL Cholesterol, Calculated 79 mg/dL < 130 mg/dL Triglycerides 141 mg/dL < 150 mg/dL PSA SCREENING Reviewed date:05/14/2010 17:11:36 Interpretation:Normal Performing Lab:, [place] [address] Notes/Report: PSA 0.3 ng/mL < 4.6 ng/mL Colonoscopy Reviewed date:01/08/2009 10:59:19 Interpretation:adenoma keshia 5 years Performing Lab: Notes/Report: Glucose (33887) Reviewed date:10/26/2008 14:39:42 Interpretation:89 Performing Lab: Notes/Report: Glucose 89 70 - 120 mg/dl AST (SGOT) Reviewed date:10/27/2008 09:15:51 Interpretation:Normal Performing Lab:, [facility]., [address] [place] [address] Notes/Report: AST (SGOT) 16 IU/L < 41 IU/L LIPID CASCADE Reviewed date:10/27/2008 16:58:25 Interpretation:LDL@72 goal <100 Performing Lab:, [facility].[place] [address] Notes/Report: Cholesterol 129 mg/dL < 200 mg/dL HDL Cholesterol 36 mg/dL >39 mg/dL LDL Cholesterol, Calculated 72 mg/dL < 130 mg/dL Triglycerides 103 mg/dL < 150 mg/dL RAPID STREP, THROAT Reviewed date:09/17/2008 16:29:15 Interpretation:Negative Performing Lab: Notes/Report: Rapid Strep, Throat: negative AST (SGOT) Reviewed date:02/07/2008 09:03:23 Interpretation:Normal Performing Lab:, , [facility] [address] [facility], [place] [address] [place] Notes/Report: AST (SGOT) 18 IU/L < 41 IU/L LIPID CASCADE Reviewed date:02/11/2008 12:05:14 Interpretation:LDL@72 goal <100 Performing Lab:, , [facility] [address] [facility] [address] [place] Notes/Report: Cholesterol 146 mg/dL < 200 mg/dL HDL Cholesterol 35 mg/dL >39 mg/dL LDL Cholesterol, Calculated 72 mg/dL < 130 mg/dL Triglycerides 196 mg/dL < 150 mg/dL PSA SCREENING Reviewed date:02/07/2008 09:03:06 Interpretation:Normal Performing Lab:, , [facility] [address] [facility], [place] [address] [place] Notes/Report: PSA 0.3 ng/mL < [...] PROFILE use [place] [place] of [id number] Reviewed date: Interpretation: Performing Lab: Notes/Report: Cholesterol 130 mg/dL < 200 mg/dL HDL Cholesterol 36 mg/dL >39 mg/dL LDL Cholesterol, Calculated 78 mg/dL < 130 mg/dL Triglycerides 81 mg/dL < 150 mg/dL AST (SGOT) Reviewed date: Interpretation: Performing Lab: Notes/Report: AST (SGOT) 10 IU/L < 41 IU/L LIPID PROFILE use [place]ID [place] as of [id number] Reviewed date: Interpretation: Performing Lab: Notes/Report: Cholesterol [...] PROFILE use [place] as of [id number] Reviewed date: Interpretation: Performing Lab: Notes/Report: Cholesterol [...] neoplasm of prostate (ICD9-CM - V76.44) Jan, Mdkglafphj-rkimkqx-g e rtussis, combined [DTP] [DtaP] (ICD9-CM - [...] day Treatment Notes Assessment Notes Clinical Notes Blood in stool discussed probable h emorrhoidal tear--pt did have Sig diverticular bleed in the past will watch for further SX's--to ER if dizziness/lightheaded/recurrent bleeding or clots Bronchitis NOS Fluids, rest, suppor tive measures for fever/symptom relief , Follow up 4-5 days if not improving. Immediate f/u if high fever, SOB, increasing focal pain. Hyperlipidemia healthy eating discu ssed Acute lymphadenitis Follow up 4-5 days i f not improving. Imediate f/u if high fever, SOB, increasing focal pain. Acute bronchitis Symptomatic care. Ca ll if not improving or if symptoms worsen. Acute sinusitis Fluids, rest, suppor tive measures for fever/symptom relief, Follow up 4-5 days if not improving. Immediate f/u if high fever, SOB, increasing focal pain. Acute bronchitis Symptomatic care. Ca ll if not improving or if symptoms worsen. DIVERTICULITIS COLON W/HEMORRHAGE review ed all hospital notes and tests including endoscopy and colonoscopy, discussed high fiber diet and continued hydration--discussed risks/benefits of ASA--pt has opted to stop ASA due to recurrent bleeding Other specified counseling as above Essential hypertension [...] if high fever, SOB, increasing focal pain. Dietary surveillance and counseling heal thy living,Patient Education was given Cough reviwed cxr with pt. and blood count . treat symptoms. rtc if condition worse. Dietary surveillance and counseling heal thy living,Patient Education was given Hearing loss discussed hearing di scussed encouraged [...] the patient was advised to call back. Need for prophylactic vaccin ation and inoculation, Other viral diseases Risk/benefit/cost reviewed with patient. Vaccination given today after discussion. Hyperlipemia Medication effects, side effects and interactions reviewed with patient. Questions were answered. Patient to call with any problems. , Medication changes will be considered based on lab results, patient will be notified. Acute pharyngitis Symptomatic care. Ca ll if not improving or if symptoms worsen. Parotiditis Recently finished co urse of antibiotics. Discussed treatment with warm compresses and sucking on lemon drops. Discussed signs and symptoms of worsening for which he should be seen. Hyperlipidemia stable GI bleeding NOS discussed hospitaliz ation in detail Hyperlipidemia healthy eating and w alking discussed Medial epicondylitis of right elbow disc ussed relative rest, NSAIDS if desired, PT if not improving Other and unspecified hyperlipidemia Healthy living material was printed Acute sinusitis as above. advised of risk and potential side effects. , Pathophysiology of this condition/disease process was explained to the patient in detail. Anticipated course reviewed. Timing and reason for call back or office visit discussed. Acute bronchitis, unspecified Symptomati c care. Call if not improving or if symptoms worsen. Hyperlipidemia discussed healthy ea juliang Hyperlipidemia stable Bronchitis NOS Rest, fluids, Tyleno l for symptoms. Call if symptoms worsen or not improved in a week. Referrals Referral Date Details SPE Routine Eye exam , [address] [place], [address], Colonoscopy, [address] [place], [address], [place] Dr. Goldman--f/u diverticular bleed, [address] [place], [address], [facility], [address] [place], [address], [facility] Ne[facility], [address] [place], [address], Colonoscopy, [facility], [address] [place], [address], Insurance Providers Payer Name Payer Address Payer Phone Insured Name Patient Relationship to Insured Coverage Start Date Coverage End Date Subscriber Number Group Number [facility] [place] Medicare Advantage PPO [address] [address] [facility] [place] [place] [phone] [place], [place] l[place] M Self - patient is the insured 0 [id number]
--- OUTSIDE RECORDS SUMMARY | 2022-10-21 11:44 | XMS_ITS | Continuity of Care Document ---
Author Name Unknown Organization [facility] Address [address] [address] [place] [address] Phone Care Team Providers Care Corporate Sales Manager Name Role Phone Leandro Galloway MD Unavailable Unavailabl e Allergies, Adverse Reactions, Alerts Substance Reaction Status Criticality No Known Allergies Active No Inform ation Medications Medication Instructions Dosage Effective Dates (start - stop) Status Comments atorvastatin 20 mg tablet take 1 tablet by oral route every day 20 MG - Active lisinopril 10 mg tablet take 1 tablet by oral route every day 10 MG - Active Procedures Procedure Date Colonoscopy Flex; W/bx 1/mx Level Iv-surg Path Gross/micro 20 Colonoscopy Flex; W/bx 1/mx Level Iv-surg Path Gross/micro [address]; Hgb Routine Serum Collection Small Intestinal Imaging Subsqt Hosp-da E&m Stable 15 M 12 Init Inpt Cons New/est Mod-hi 2 Colonoscopy Flex; Dx (dec Pro) 12 Ugi Endo; Dx W/wo Collec Specm 12 Offic/outpt E&m Estab Mod-hi 2 11 Routine Serum Collection [id number] Init Inpt Cons New/est Mod-hi 1 Colonoscopy Flex; W/remov Les- 09 Level Iv-surg Path Gross/micro Advance Directives Directive Yes / No Effective Date File Name No Information Encounters Encounter Description Practice Location Reason(s) For Visit Diagnoses Date Provider Providers Copied on Encounter [facility], [address] [address], [place], [id number], [place] tel:[phone] [facility] No Information 3 Yadiel Reeves. [address] [facility], [facility] [address], [place], [place], [id number], [place]. tel:[phone] [facility], [address] [address], [place], [id number], [place] tel:[phone] [facility] Colorectal polypsDiverticu losisEncounter for screening for malignant neoplasm of colonPersonal history of colonic polypsBenign neoplasm of transverse colon 0 Wilbur Meade. [address] [facility], [place], [place], [id number], [place]. tel:[phone] Vitaly Hargrove MD. tel:[phone] ring Provider: Jason Swan MD T, [address] [place], [address]. tel:[phone] [facility], [address] [address], [place], [place], [id number], [place] tel:[phone] No Information 0 No Information Referring Provider: Jason Swan MD T, [address] [place], [address]. tel:[phone] [facility], [address] [address], [place], [place], [id number], [place] tel:[phone] [facility] Colon polypDiverticul osis of colon (without mention of hemorrhage)Pers onal History Colon PolypsDiverticu losis Of ColonBenign Neoplasm ColonBenign neoplasm of colon, unspecifiedDive rticulosis of large intestine without perforation or abscess without bleedingPersona l history of colonic polyps 4 Tristian Wetzel. [address] [facility], [address], [id number], [place]. tel:[phone] Referring Provider: Vitaly Gomez, [address] [place], [address]. tel:[phone] [facility], [address] [address], [place], [place], [id number], [place] tel:[phone] [facility] GI Bleed 2 Nina Meredith. [address] [facility], [facility] [address], [place], [id number], [place]. tel:[phone] Referring Provider: Vitaly Gomez, [address] [place], [address]. [phone] Subsqt Hosp-da E&m Stable 15 M [facility], [address] [address], [place], [place], [id number], [place] tel:[phone] [facility] No Information 2 Sergio Villafuerte. [address] [facility], [address], [id number], [place]. tel:[phone] Referring Provider: Vitaly Gomez, [address] [place], [address]. tel:[phone] Init Inpt Cons New/est Mod-hi [facility], [address] [address], [place], [place], [id number], [place] tel:[phone] [facility] No Information 2 Danilo Shaikh. [address] [facility], [address], [id number], [place]. [phone] Referring Provider: Vitaly Gomez, [address] [place], [address]. [phone] Offic/outpt E&m Estab Mod-hi 2 [facility], [address] [address], [place], [place], [id number], [place] tel:[phone] [facility] Anemia Nos Suki Butterfield. [address] [place] [address], [id number], [place]. tel:[phone] Referring Provider: Vitaly Gomez, [address] [facility] [place], [address]. tel:[phone] Init Inpt Cons New/est Mod-hi [facility], [address] [address], [place], [place], [id number], [place] tel:[phone] [facility] No Information 1 Jones Hernandez. [address] [place] [address], [id number], [place]. tel:[phone] Referring Provider: Vitaly Gomez, [address] [facility] [place], [address]. tel:[phone] [facility], [address] [address], [place], [place], [id number], [place] tel:[phone] [facility] Colon Cancer ScreeningDivert iculosis Of ColonBenign Neoplasm Lg Bowel 9 Malka Melissa. [address] [place] [address], [id number], [place]. tel:[phone] Referring Provider: Vitaly Gomez, [address] [facility] [place], [address]. tel:[phone] Family History Family Member Type Diagnosis Age At Onset First degree family history Problem (finding) No history of Cancer, colon Sister Problem (finding) Alive and well Sister Problem (finding) diverticulitis of colon First degree family history Problem (finding) Maternal history of diabetes mellitus Brother Problem (finding) alcoholism First degree family history Problem (finding) No history of Crohn's First degree family history Problem (finding) No history of Ulcerative Colitis Brother Problem (finding) Alive and well First degree family history Problem (finding) alcoholism First degree family history Problem (finding) diverticulitis of colon First degree family history Problem (finding) No Family history of No history of Colon Polyps Immunizations Vaccine Date Status Comments Influenza administered Note: [facility] bi-d irectional interface ; Source: Other Registry tetanus and diphtheria toxoi ds, adsorbed, preservative free, for adult use (5 Lf of tetanus toxoid and 2 Lf of diphtheria toxoid) administered Note: [facility] bi-direct ional interface ; Source: Other Registry zoster vaccine recombinant administered N ote: [facility] bi-directional interface ; Source: Other Registry Influenza administered Note: [facility] bi-d irectional interface ; Source: Other Registry Influenza administered Note: [facility] bi-d irectional interface ; Source: Other Registry Influenza administered Note: [facility] bi-d irectional interface ; Source: Other Registry Influenza administered Note: [facility] bi-d irectional interface ; Source: Other Registry Prevnar 13 administered Note: [facility] bi-d irectional interface ; Source: Other Registry Influenza administered Note: [facility] bi-d irectional interface ; Source: Other Registry Pneumovax 23 administered Note: [facility] bi-d irectional interface ; Source: Other Registry Influenza, seasonal, injectable administe red Note: [facility] bi- directional interface ; Source: Other Registry Influenza, seasonal, injectable administe red Note: [facility] bi- directional interface ; Source: Other Registry zoster vaccine, live administered Note: [facility] bi-directional interface ; Source: Other Registry Influenza, seasonal, injectable administe red Note: [facility] bi- directional interface ; Source: Other Registry Influenza, seasonal, injectable administe red Note: [facility] bi- directional interface ; Source: Other Registry tetanus toxoid, reduced diphtheria toxoid, and acellular pertussis vaccine, adsorbed administered Note: [facility] b i-directional interface ; Source: Other Registry Influenza, seasonal, injectable administe red Note: [facility] bi- directional interface ; Source: Other Registry tetanus and diphtheria toxoi ds, adsorbed, preservative free, for adult use (5 Lf of tetanus toxoid and 2 Lf of diphtheria toxoid) administered Note: [facility] bi-direct ional interface ; Source: Other Registry Payers Payer name Insurance type Covered constitution party ID Authoriza timelchor(s) [employer] Medicare Advantage [id number] Social History Type Description Quantity Date Captured Comments Sex Male Smoking Status No Information Chief Complaint And Reason For Visit No Information Reason For Referral Reason For Referral No Information Plan Of Treatment Date Type Action Status Referral Ordered: Colonoscopy Appointment date/timeframe: 02/09/2019 ordered Appointment Praful Carbajal BOOKED History Of Present Illness Encounter Date Complaint History Of Prese nt Illness No Information Functional Status Date Functional Assessmen t No Information Instructions Date Instruction Additional Infor mation Colon Polyps Related to Color ectal polyps Diverticulosis/Diverticulitis Re lated to Diverticulosis Colon Polyps Related to Colon polyp Assessments Type Assessment Date No Information Patient Care Teams Name Effective Dates (start - stop) Status Members No Information
== END 2022-10-16 13:51 | disposition home or self-care (01) ==
LOC: AMB 10-21 11:41
PROVIDERS: PCP Surgery; Visit Provider Family Medicine
DX: K92.1 Melena (principal)
CPT/HCPCS: A0425; A0427

== ENCOUNTER 2022-10-16 14:05 | Inpatient (IN) | payer MEDICARE, SELFPAY ==
[2022-10-16] VITALS (24 sets, daily range): BP systolic 98–117; BP diastolic 62–75; PULSE 58–87; RESP 18–20; TEMP 36.5–36.6; O2SAT 95–99; BMI 27.9
--- NOTE | 2022-10-16 14:37 | ED.GIBLEED ---
HPI - GI Bleed General Time Seen by Provider: 14:37 Date Seen: 10/16/22 Chief complaint: GI Bleed Stated complaint: GI bleed Time Seen by Provider: 10/16/22 14:37 Source: patient, family and RN notes reviewed Mode of arrival: ambulatory Limitations: no limitations History of Present Illness HPI Narrative: Patient is a very pleasant 72-year-old gentleman with history of hypertension currently on lisinopril, hyperlipidemia currently on atorvastatin and history of lower GI bleed who comes to the emergency room with complaints of blood in his stool. Patient notes that he had the onset of a small amount of blood in his stool yesterday morning at 0600 hours. Two additional occurrences happened but then stop for the rest of the day. He took the day easy. Today however he has had additional stools that have been somewhat loose with blood in them. Initially bright red it is now more dark. He has no abdominal pain with this. He denies shortness of breath or chest pain. His family agrees that he is pale but is improved verses when they 1st saw him at the house this morning. The last time this happened was May of 2022 at which time our surgeon Dr. Eden did colonoscopy and endoscopy. Daughter is fairly frustrated as they have not been able to ascertain where the bleeding is coming from and often stops. She states that this has happened at least 10 times and her father states that this is the 3rd time in the past year. Patient denies any rectal pressure or pain. He did have some nausea earlier today but has not had any vomiting. Notes no fever or chills. Patient has a history of a stroke and had a hole in his heart patch to according to family. He is not currently on any blood thinners or anti-platelet therapy. Related Data Home Medications Medication Instructions Recorded Confirmed atorvastatin 20 mg tablet 20 mg PO HS 06/10/22 10/16/22 lisinopril 10 mg tablet 10 mg PO DAILY 06/10/22 10/16/22 Allergies Allergy/AdvReac Type Severity Reaction Status Date / Time No Known Drug Allergies Allergy Verified 10/16/22 14:15 Review of Systems Status of ROS: Reports: 10 or more systems reviewed and unremarkable except as noted in History and below Narrative: No loss of bowel or bladder control Const: Denies: fever or chills Eyes: Denies: change in vision ENMT: Denies: neck pain or difficulty swallowing Cardio: Denies: chest pain, swelling of feet/ankles, lightheadedness or shortness of breath with exertion Resp: Denies: shortness of breath or cough GI: Reports: nausea, diarrhea and blood in stool; Denies: abdominal pain, vomiting or difficulty swallowing : Denies: painful urination Musculo: Denies: neck pain PFSH PFSH Medical History Basal cell carcinoma ?C44.91 - Basal cell carcinoma of skin, unspecified (ICD-10) Colon polyp ?K63.5 - Polyp of colon (ICD-10) Hyperlipidemia ?E78.5 - Hyperlipidemia, unspecified (ICD-10) Diverticulitis ?K57.92 - Diverticulitis of intestine, part unspecified, without perforation or abscess without bleeding (ICD-10) Hypertension ?I10 - Essential (primary) hypertension (ICD-10) Surgical History S/P patent foramen ovale closure (~2004) ?Z87.74 - Personal history of (corrected) congenital malformations of heart and circulatory system (ICD-10) Hx of colonoscopy ?Z98.890 - Other specified postprocedural states (ICD-10) Family History Brother Diabetes Kidney disease Kidney transplanted Paternal Grandfather Diabetes Father Myocardial infarction Social History Narrative: Retired from IT. . Lifelong nonsmoker. EtoH 1-2 beers per week. Denies recreational drugs. Full Code. Highest level of school completed/degree received: some college, no degree Smoking Status: Never smoker Do you use any of these nicotine containing products: None Second hand tobacco smoke exposure: No How often do you have a drink containing alcohol: 2-3 times a week How many standard drinks containing alcohol do you have on a typical day: 1 or 2 How often do you have six or more drinks on one occasion: Never AUDIT-C Alcohol total score: 3 Non-prescribed substance use: denies use Caffeine: Yes service: No Exam Narrative: Exam Narrative: Patient is alert and oriented. He does appear somewhat pale to me. Ears eyes nose clear. Oral cavity with moist mucous membranes. Neck is supple. Heart with regular rate and rhythm. Lungs are clear bilaterally. Abdomen is soft nontender. Lower extremities without edema. Moving all extremities. Const: Vital Signs, click to edit/add: Vital Signs - 24 hr 10/16/22 14:15 10/16/22 14:38 10/16/22 14:45 Temperature 97.7 F Pulse Rate 72 76 Pulse Rate [Pulse Oximeter] 73 Respiratory Rate 20 Blood Pressure Blood Pressure [Ri ght Upper Arm] 98/68 Pulse Oximetry 98 96 96 Oxygen Delivery Me thod Room Air 10/16/22 15:00 10/16/22 15:01 10/16/22 15:15 Temperature Pulse Rate 71 68 80 Pulse Rate [Pulse Oximeter] Respiratory Rate Blood Pressure 98/66 Blood Pressure [Ri ght Upper Arm] Pulse Oximetry 95 96 96 Oxygen Delivery Me thod 10/16/22 15:30 10/16/22 15:31 10/16/22 15:45 Temperature Pulse Rate 75 72 70 Pulse Rate [Pulse Oximeter] Respiratory Rate Blood Pressure 102/67 Blood Pressure [Ri ght Upper Arm] Pulse Oximetry 96 97 97 Oxygen Delivery Me thod 10/16/22 16:00 10/16/22 16:01 10/16/22 16:15 Temperature Pulse Rate 70 71 76 Pulse Rate [Pulse Oximeter] Respiratory Rate Blood Pressure 103/67 Blood Pressure [Ri ght Upper Arm] Pulse Oximetry 97 97 97 Oxygen Delivery Me thod 10/16/22 16:30 10/16/22 16:31 10/16/22 16:45 Temperature Pulse Rate 75 76 80 Pulse Rate [Pulse Oximeter] Respiratory Rate Blood Pressure 113/72 Blood Pressure [Ri ght Upper Arm] Pulse Oximetry 98 99 97 Oxygen Delivery Me thod Documenting provider has reviewed patient's vital signs: yes Course Course Hospital Course: At this time differential diagnosis includes diverticular bleed, diverticulitis, colitis. Will place IV give 500 mL normal saline type and screen for potential blood administration as well as do labs to include CBC, comprehensive panel, CRP, INR. Reevaluation(s) Reevaluation #1: Patient's blood pressure much improved after normal saline to 113 systolic. No episodes of bloody stools while in the emergency room. Vital Signs Vital signs: Initial Vital Signs Temperature 97.7 F 10/16/22 14:15 Temperature Source Temporal Artery Scan 10/16/22 14:15 Pulse Rate 73 10/16/22 14:15 Pulse Rhythm Regular 10/16/22 14:15 Respiratory Rate 20 10/16/22 14:15 Blood Pressure 98/68 10/16/22 14:15 Blood Pressure Mean 78 10/16/22 14:15 Blood Pressure Position Supine 10/16/22 14:15 Pulse Oximetry 98 10/16/22 14:15 Oxygen Delivery Method Room Air 10/16/22 14:15 Vital Signs Temperature 97.7 F 10/16/22 14:15 Pulse Rate 73 10/16/22 14:15 Respiratory Rate 20 10/16/22 14:15 Blood Pressure 98/68 10/16/22 14:15 Pulse Oximetry 98 10/16/22 14:15 Oxygen Delivery Method Room Air 10/16/22 14:15 Temperature 97.7 F 10/16/22 14:15 Pulse Rate 80 10/16/22 16:45 Respiratory Rate 20 10/16/22 14:15 Blood Pressure 113/72 10/16/22 16:31 Pulse Oximetry 97 10/16/22 16:45 Oxygen Delivery Method Room Air 10/16/22 14:15 MDM - GI Bleed MDM Narrative Medical decision making narrative: 1. Lower GI bleed-history of multiple episodes of GI bleed that always resolved spontaneously. Colonoscopy in May of this year show old extensive diverticulosis. At this time hemoglobin is 10. Patient is not tachycardic and blood pressure has improved. Further a been no additional episodes of bloody diarrhea in the emergency room. Will admit patient to the floor for serial hemoglobins. Type and screen has been done. Did discuss TXA with hospitalist but will hold off at this time. Did describe to patient that if he should suddenly have worsening bleeding would need to transfer him to outside facility. 2. Disposition-admit to the floor. Did discuss this case with who does suggest a GI consult with [facility] after resolution of this current issue. Medical Records Attestation: I reviewed the patient's medical records. Lab Data Attestation: I reviewed the patient's lab results. Labs: Lab Results 10/16/22 Range/Units 15:50 WBC 7.20 (4.50-11.00) K/uL RBC 4.04 L (4.30-5.90) m/uL Hgb 10.0 L (13.5-17.5) gm/dL Hct 31.5 L (37.0-53.0) % MCV 78 L (80-100) fL MCH 25 L (26-34) pg MCHC 32 (32-36) gm/dL RDW Coeff of Brenna 17.7 H (11.5-15.5) % Plt Count 200 (140-440) K/uL Neut % (Auto) 78.4 H (42.0-72.0) % Lymph % (Auto) 13.2 L (20-44) % Dickinson % (Auto) 7.1 (0.0-11.0) % Eos % (Auto) 0.6 (0.0-7.0) % Baso % (Auto) 0.6 (0.0-3.0) % Neut # (Auto) 5.60 (1.7-7.0) K/uL Lymph # (Auto) 1.00 (0.90-2.90) K/uL Dickinson # (Auto) 0.50 (0.00-0.90) K/UL Eos # (Auto) 0.04 (0.00-0.50) K/uL Baso # (Auto) 0.04 (0.00-0.30) K/uL INR 1.07 (0.91-1.10) Sodium 138 (135-149) mmol/L Potassium 4.2 (3.6-5.1) mmol/L Chloride 109 (96-114) mmol/L Carbon Dioxide 25 (20-32) mmol/L BUN 24 (7-30) mg/dL Creatinine 0.9 (0.5-1.5) mg/dL Estimated Creat Clear 69.03 Estimated GFR 90 ml/min Glucose 96 (60-115) mg/dL Calcium 8.3 L (8.4-10.6) mg/dL Total Bilirubin 1.2 (0.1-1.5) mg/dL AST 23 (12-35) U/L ALT 21 (4-50) U/L Alkaline Phosphatase 46 (40-150) U/L C-Reactive Protein < 0.5 L (0.5-1.0) mg/dL Total Protein 5.8 L (6.0-8.3) g/dL Albumin 3.3 (3.3-5.0) g/dL Discharge Plan Discharge Prescriptions: No Action lisinopril 10 mg tablet 10 mg PO DAILY atorvastatin 20 mg tablet 20 mg PO HS Follow Up/Referrals: Tommie Singh MD [Primary Care Provider] -
--- OUTSIDE RECORDS SUMMARY | 2022-10-16 14:57 | XMS_ITS | Patient Health Record ---
Author Name Unknown Organization [facility] Care Team Providers Care Side Panel Padder Name Role Phone Placido Girard Unavailable [phone] Tracey Banuelos Unavailable [phone] Millie Morrell Unavailable [phone] Christy Estrada CMA Unavailable Vitaly Tapia Unavailable [phone] CRESCENCIO Akers Unavailable [phone] Jason Gutierrez Unavailable [phone] Rashard Davidson Unavailable [phone] Iron Mayfield Unavailable [phone] Lina Munson Unavailable [phone] Jose Fam Unavailable [phone] Deysi Price Unavailable [phone] Nasreen Pineda Unavailable [phone] Guero, Provider Unavailable Sully Dahl Unavailable [phone] Neel Gunn Unavailable [phone] PROBLEMS Type Condition ICD9-CM Code [id number] Code Onset Dates Condition Status W/U Status Risk SNOMED Code Notes Problem Hyperlipidemi a, unspecified hyperlipidemi a type E78.5 confirmed 25903695 Problem Essential hypertension I10 confirmed [id number] Problem Hyperlipidemi a 272.4 confirmed [id number] Problem Other and unspecified hyperlipidemi a E78.5 confirmed [id number] Problem Gastro-esopha geal reflux disease without esophagitis K21.9 confirmed 555192596 Problem History of colon polyps Z86.010 confirmed [id number] ALLERGIES No Known Allergies ENCOUNTERS from 1950 to 2022-10-16 Encounter Location Date Provider Diagnosis [facility] [address] [id number] Sep, Placido Girard [facility] [address] [id number] Apr, Provider [facility] Hyperlipidemia, unspecified hyperlipidemia type E78.5 and Essential hypertension I10 [address] [id number] Jan, Tracey Banuelos Hyperlipidemia, unspecified hyperlipidemia type E78.5 ; Encounter for Medicare annual wellness exam Z00.00 ; Essential hypertension I10 and Prostate cancer screening Z12.[address] [id number] Jan, Sully Dahl [address] [id number] Dec, Neel Gunn [address] [id number] Apr, Jason Gutierrez History of colon polyps Z86.[address] [id number] Jan, Jason Gutierrez Encounter for immunization Z23 [address] [id number] Oct, Jason Gutierrez Encounter for immunization Z23 ; Adult general medical exam Z00.00 ; Other and unspecified hyperlipidemia E78.5 ; Encounter for prostate cancer screening Z12.5 and Screening for thyroid disorder Z13.[address] [id number] Jan, Jason Gutierrez Encounter for immunization Z23 [address] [id number] Jan, Jason Gutierrez Acute bronchitis, unspecified J20.9 [facility] [address] [id number] Jan, Jason Gutierrez Encounter for immunization Z23 [facility] [address] [place] [address] [id number] Jul, Jason Gutierrez [facility] [address] [id number] Jul, Jason Gutierrez Other and unspecified hyperlipidemia E78.5 and Gastro-esophageal reflux disease without esophagitis K21.9 [facility] [address] [place], [place] [id number] Jul, Jason Gutierrez [facility] [address] [facility] [address], [address] [place], [place] [id number] Apr, Rashard Davidbers Bronchitis J40 [facility] [address] [id number] Feb, Jason Gutierrez Acute bronchitis J20.9 [facility] [address] [id number] Feb, Jason Gutierrez Hyperlipidemia, unspecified E78.5 [facility] [address] [id number] Jan, Jason Gutierrez Encounter for immunization Z23 [facility] [address] [id number] Nov, Jason Gutierrez [facility] [address] [id number] Oct, Jason Gutierrez Hyperlipidemia, unspecified E78.5 ; Gastro-esophageal reflux disease without esophagitis K21.9 and Encounter for screening for malignant neoplasm of prostate Z12.5 [facility] [address] [id number] Oct, Iron Mayfield [facility] [address] [id number] Sep, Iron Mayfield [facility] [address] [id number] May, Iron Mayfield [facility] [address] [id number] May, Iron Mayfield Bronchitis J40 ; Cervical mass N88.8 and Nodule of neck R22.1 [facility] [address] [id number] Feb, [facility] Encounter for immunization Z23 [facility] [address] [id number] Sep, Vitaly Tapia [facility] [address] [id number] August, Vitaly Tapia Viral syndrome 079.99 ; Hyperlipidemia 272.4 and Need for pneumococcal vaccine V03.82 [facility] [address] [id number] Jul, Vitaly Tapia [facility] [address] [id number] Jan, [facility] Need for prophylactic vaccination and inoculation, Influenza V04.81 [facility] [address] [id number] Oct, Vitaly Tapia [facility] [address] [id number] Oct, Vitaly Tapia [facility] [address] [id number] Sep, Vitaly Tapia Hearing loss 389.9 [facility] [address] [id number] August, Vitaly Tapia [facility] [address] [id number] August, Lina rhiannaGarcia Cough 786.2 and Acute sinusitis 461.9 [facility] [address] [id number] Jul, Vitaly Regina Hyperlipidemia 272.4 ; Need for vaccination against Streptococcus pneumoniae V03.82 and Medial epicondylitis of right elbow 726.31 [facility] [address] [id number] Jul, Vitaly Regina [facility] [address] [id number] May, Vitaly Tapia Acute sinusitis 461.9 [facility] [address] [id number] Feb, [facility] Need for prophylactic vaccination and inoculation, Influenza V04.81 [facility] [address] [id number] Feb, Vitaly Tapia [facility] [address] [id number] Nov, Vitaly Tapia Hyperlipidemia 272.4 [facility] [address] [id number] Jul, Vitaly Regina Hyperlipidemia 272.4 [facility] [address] [id number] Jul, Vitaly Tapia [facility] [address] [id number] Jun, Jason Gutierrez Acute bronchitis 466.0 [facility] [address] [id number] Apr, Vitaly Tapia [facility] [address] [id number] Mar, Vitaly Tapia DIVERTICULITIS COLON W/HEMORRHAGE 562.13 and Dietary surveillance and counseling V65.3 [facility] [address] [place] [id number] Mar, Vitaly Tapia [facility] [address] [id number] Mar, Vitaly Tapia [facility] [address] [facility],[address] [place], [place] [id number] Mar, Vitaly rhiannaJanakcas [facility] [address] [place], [place] [id number] Mar, Vitaly rhiannaJanakcas [facility] [address] [place] [address] [id number] Mar, Vitaly Tapia Blood in stool 578.1 ; Dietary surveillance and counseling V65.3 and Need for prophylactic vaccination and inoculation, Influenza V04.81 [facility] [address] [place] [address] [id number] Jan, Vitaly Regina [facility] [address] [place] [address] [id number] Oct, Vitaly Regina [facility] [address] [place] [address] [id number] Jul, Vitaly Tapia Hyperlipidemia 272.4 ; Need for prophylactic vaccination and inoculation, Other viral diseases V04.89 ; Blood loss anemia 280.0 and Other specified counseling V65.49 [facility] [place] [address] [place], [place] [id number] Jul, Vitaly Regina [facility] [address] [place] [address] [id number] Mar, Vitaly Tapia [facility] [address] [place] [address] [id number] Mar, [facility] Need for prophylactic vaccination and inoculation, Influenza V04.81 [facility] [address] [place], [place] [id number] Nov, [facility] Anemia NOS 285.9 [facility] [address] [place] [address] [id number] Nov, Vitaly Tapia Hyperlipidemia 272.4 [facility] [address] [place] [address] [id number] Oct, Vitaly Tapia GI bleeding NOS 578.9 and Anemia NOS 285.9 [facility] [address] [place], [place] [id number] Jul, Vitaly Tapia GI bleeding NOS 578.9 and Need for prophylactic vaccination and inoculation, Influenza V04.81 [facility] [address] [place] [address] [id number] Jun, Vitaly Tapia [facility] [address] [place] [address] [id number] Jun, Vitaly Tapia [facility] [address] [place] [address] [id number] Apr, Vitaly Tapia Hyperlipidemia 272.4 [facility] [address] [place] [address] [id number] Apr, Vitaly Tapia ROUTINE MEDICAL EXAM V70.0 ; Hyperlipidemia 272.4 and Special screening for malignant neoplasm of prostate V76.44 [facility] [address] [place] [address] [id number] Mar, Vitaly Tapia [facility] [address] [place] [address] [id number] Mar, Vitaly Tapia [facility] [address] [place] [address], [address] [place], [place] [id number] Jan, Jose Fam Acute bronchitis 466.0 [facility] [address] [id number] Apr, Vitaly Tapia [facility] [address] [place] [address] [id number] Nov, Vitaly Tapai [facility] [address] [place] [address] [id number] Oct, Vitaly Tapia Hyperlipidemia 272.4 and SCREEN-DIABETES MELLITUS V77.1 [facility] [address] [place] [address] [id number] Sep, Vitaly Tapia [facility] [address] [facility], [address] [place], [place] [id number] August, Deysi Price Acute bronchitis NOS 466.0 and Acute pharyngitis 462 [facility] [address] [place] [address] [id number] Jul, Vitaly Tapia [facility] [address] [place] [address],[address] [place], [place] [id number] Jul, Jose Fam Acute bronchitis 466.0 [facility] [address] [place] [address] [id number] Jun, Vitaly Tapia Bronchitis NOS 490 ; Hyperlipidemia 272.4 and SCREEN-DIABETES MELLITUS V77.1 [facility] [address] [place] [address] [id number] May, Vitaly Tapia [facility] [address] [place] [address] [id number] Mar, Vitaly Tapia [facility] [address] [id number] Mar, Vitaly Tapia [facility] [address] [place] [address] [id number] Jan, Vitaly Tapia Bronchitis NOS 490 ; Hyperlipemia 272.4 ; Special screening for malignant neoplasm of prostate V76.44 and Miefpsglhs-oxsukbg-exd tussis, combined [DTP] [DtaP] V06.1 [facility] [address] [place] [address] [id number] Mar, Vitaly Tapia [facility] [address] [place] [address] [id number] Dec, Vitaly Tapia Bronchitis NOS 490 [facility] [address] [place] [address] [id number] May, Vitaly Tapia Bronchitis NOS 490 [facility] [address] [id number] Apr, [facility] VACCIN FOR INFLUENZA V04.81 [facility] [address] [id number] Jan, Vitaly Regina Hyperlipemia 272.4 and Special screening for malignant neoplasm of prostate V76.44 [facility] [address] [place], [place] [id number] Sep, Vitaly weiSoumya [facility] [address] [place], [place] [id number] Jun, Nasreen moctezumaVu Parotiditis 527.2 and Costochondritis 733.6 [facility] [address] [place], [place] [id number] Jun, Vitaly Regina [facility]adenitis 683 [facility] [address] [place] [address] [id number] Apr, Jason rhiannaBertnatashabenny [facility] [address] [place], [place] [id number] Jan, Vitaly weiSoumya [facility] [address] [place] [address] [id number] Nov, Vitaly Tapia [facility] [address] [place] [address] [id number] Apr, Vitalycris Tapia IMMUNIZATIONS Vaccine Route Administration Date Status Pneumococcal 13 (Prevnar) IM Intramuscular August 21 5 Administered Influenza (Flulaval) 3 years and up WITH preservative IM Intramuscular Jan 21, 2016 Administered Influenza 6 months and older WITH Preservative IM Intramuscular Jan 23, 2017 Administered Influenza 6 months and older WITH Preservative IM Intramuscular Jan 20, 2018 Administered Td (7 yrs and Older) IM Intramuscular November 10, 2018 Ad ministered Tdap (Adacel 11-64 yrs) IM Intramuscular Feb 04, 2008 Administered Zoster vaccine, live SC Subcutaneous August 14, 2011 Ad ministered Pneumococcal 23 Adult IM Intramuscular August 12, 2013 Administered Influenza 6 months and older WITH Preservative IM Intramuscular Feb 02, 2019 Administered Influenza FLUAD 65 and older Unknown Jan 19, 2020 Administered Covid Vaccine (Moderna) Unknown Jun 15, 2020 Admi nistered Td (7 yrs and Older) Unknown November 11, 1996 Admini stered Influenza 3 Years and above WITH Preservative IM Intramuscular Feb 19, 2015 Administered Influenza 3 Years and above WITH Preservative IM Intramuscular Jan 27, 2014 Administered Influenza 3 Years and above WITH Preservative IM Intramuscular Mar 02, 2013 Administered Influenza 3 Years and above WITH Preservative IM Intramuscular Mar 25, 2012 Administered Influenza 3 Years and above WITH Preservative IM Intramuscular Mar 31, 2011 Administered Influenza 3 Years and above WITH Preservative IM Intramuscular July 25, 2010 Administered Influenza 3 Years and above WITH Preservative Unknown Apr 27, 2006 Administered SOCIAL HISTORY Tobacco Use: Social History Observation Description Date Details (start date - stop date) Never Smoker Sex Assigned At : Social History Observation Description Sex Assigned At Unknown Tobacco Status Question Answer Notes I am: never smoker REASON FOR REFERRAL from 1950 to 2022-10-16 Reason SPE Routine Eye exam AuthType [facility] Diagnosis 1 EYE & VISION EXAMINA TION (V72.0) Referral Organization [facility] Referring Provider First Name Vitaly Referring Provider Last Name Regina Referring Provider Specialty Family Prac claire Referred Organization [facility] Referred Address [address] ,[address],[place], [place],[address] Referred Provider Specialty Ophthalmolog y Referral Priority Routine General Notes pts Reason Colonoscopy AuthType SPECIALIST Diagnosis 1 SCREEN MALIG NEOP-CO GRECIA (V76.51) Referral Organization [facility] Referring Provider First Name Vitaly Referring Provider Last Name Regina Referring Provider Specialty Family Prac claire Referred Organization [facility] Referred Address [address] [place] [phone] Referred Provider Specialty Gastroentero logy Referral Priority Routine General Notes Patient has seen Dr. Hargrove in October. Dr. Hargrove told him that he should get a colonoscopy this year. He thought that the information would be mailed to him but he has not received anything yet . Please call. Millie Morrell 12/14/2008 10:23:15 AM >talked to patient told him that I will send order over to [facility] and that they will contact him to schedule...done appt on 01/04/09 Reason LEW Goldman--f/u diverticular bleed AuthType SPECIALIST Diagnosis 1 GI bleeding NOS (578 .9) Referral Organization [facility] Referring Provider First Name Vitaly Referring Provider Last Name Regina Referring Provider Specialty Family Prac claire Referred Organization [facility] Referred Address [address] [place], [place],[address] Referred Provider Specialty Gastroentero logy Referral Priority Routine General Notes Kristina Farris 07/25/2010 3: 30:34 PM >order sent to [facility]astro Reason [facility] AuthType SPECIALIST Diagnosis 1 Hearing loss (389.9) Referral Organization [facility] Referring Provider First Name Vitaly Referring Provider Last Name Regina Referring Provider Specialty Family Prac claire Referred Organization [facility] Referred Address [address] ,[address],[place], [place],[address] Referred Provider Specialty ENT Referral Priority Routine General Notes hearing loss--audiol Kimberly Pringle 10/12/2013 04:52:52 PM CDT >patient given info to schedule appt Millie Morrell 06/26/2014 2:04:05 PM >received Reason SPR-Ultrasound Neck AuthType OUTPATIENT RADIOLOGY SERVICES Diagnosis 1 Nodule of neck (R22. 1) Referral Organization [facility] Referring Provider First Name Iron Referring Provider Last Name Tran Referring Provider Specialty Family Prac claire Referred Organization [facility] Referred Address [address] [place], [place],[address] Referred Provider Specialty Radiology Referral Priority Routine General Notes nodule R side of nec k, Thyroid nodule? ultrasound neck Millie Morrell 05/31/2015 9:52:48 AM >Rsvl--appt on 06/01/15 @ 115pm Reason Colonoscopy AuthType SPECIALIST Diagnosis 1 History of colon lydia yps (Z86.010) Referral Organization [facility] Referring Provider First Name Jason Referring Provider Last Name Matt Referring Provider Specialty Family Prac claire Referred Organization [facility] Referred Provider TONO GRIDER Referred Address [address] [place], [place],[address] Referred Provider Specialty Gastroentero logy Referral Priority Routine General Notes Millie Morrell 05/27/2019 3:04:37 PM >Wilbur ANDERSON, Halina Freitas at [facility] on 06/10/2019 at 08:00 AM VITAL SIGNS from 1950 to 2022-10-16 Height 71.25 in Jan, Weight 209.3 lbs Jan, BMI 28.98 kg/m2 Jan, Temperature 98.1 degrees Fahrenheit Jan, Blood pressure systolic 134 mm Hg Jan, Blood pressure diastolic 77 mm Hg Jan, MEDICATIONS Medication SIG (Take, Route, Frequency, Duration) Notes Start Date End Date Status Lisinopril 10 MG 1 tab(s) orally once a day Active Omeprazole 20 MG 1 cap(s) orally as needed Oct, Active Atorvastatin Calcium 20 MG 1 tab(s) oral ly once a day Active PROCEDURES from 1950 to 2022-10-16 Procedure Date Ordered Date Performed Result Body Sit e Functional Screen Assessment 2014-08-21 No Fall s Functional Screen Assessment 2015-05-31 N/A Functional Screen Assessment 2016-08-05 Negativ e Functional Screen Assessment 2020-02-01 done at visit RESULTS from 1950 to 2022-10-16 Component Value Reference Range Notes Basic Metabolic Profile Reviewed date:02/06/2020 08:48:02 Interpretation:Normal Performing Lab:, [facility] [address] [place] [address] Notes/Report: ANION GAP, CALCULATION 10 mmol/L 5-18 mmol/L BLOOD UREA NITROGEN 17 mg/dL 8-28 mg/dL CALCIUM 9.0 mg/dL 8.5-10.5 mg/dL CHLORIDE 106 mmol/L 98-107 mmol/L CO2 24 mmol/L 22-31 mmol/L CREATININE 0.83 mg/dL 0.70-1.30 mg/dL GFR MDRD NON AF AMER >60 mL/min/1.73m2 >60 mL/min/1.73 m2 GFR MDRD AF AMER >60 mL/min/1.73m2 >60 mL/min/1.73m2 GLUCOSE 85 mg/dL 70-125 mg/dL POTASSIUM 4.3 mmol/L 3.5-5.0 mmol/L SODIUM 140 mmol/L 136-145 mmol/L LIPID CASCADE Reviewed date:02/06/2020 08:46:08 Interpretation:LDL 59 on atorvastastin 20 Performing Lab:, [facility] [address] [place] [address]58 Notes/Report: CHOLESTEROL 130 mg/dL <=199 mg/dL HDL CHOLESTEROL 37 mg/dL >=40 mg/dL LDL CHOLESTEROL CALCULATED 59 mg/dL <=129 mg/dL TRIGLYCERIDES 168 mg/dL <=149 mg/dL PSA SCREENING Reviewed date:02/06/2020 08:46:39 Interpretation:0.8 Performing Lab:, [facility] [address] [place] [address] Notes/Report: PROSTATE SPECIFIC ANTIGEN 0.8 ng/mL 0.0-6.5 ng/mL Colonoscopy Reviewed date:06/16/2019 14:56:17 Interpretation:hyperplastic polyp, repeat 5 yrs Performing Lab: Notes/Report: COMPREHENSIVE METABOLIC Reviewed date:11/12/2018 14:38:53 Interpretation: Performing Lab:, [facility] [address] [place] [address]674 Notes/Report: ALBUMIN 3.9 g/dL 3.5-5.0 g/dL ALKALINE PHOSPHATASE 67 U/L 45-120 U/L ALT 21 U/L 0-45 U/L ANION GAP, CALCULATION 9 mmol/L 5-18 mmol/L AST 14 U/L 0-40 U/L BILIRUBIN, TOTAL 1.1 mg/dL 0.0-1.0 mg/dL BLOOD UREA NITROGEN 15 mg/dL 8-28 mg/dL CALCIUM 9.0 mg/dL 8.5-10.5 mg/dL CHLORIDE 107 mmol/L 98-107 mmol/L CO2 24 mmol/L 22-31 mmol/L CREATININE 0.87 mg/dL 0.70-1.30 mg/dL GFR MDRD NON AF AMER >60 mL/min/1.73m2 >60 mL/min/1.73 m2 GFR MDRD AF AMER >60 mL/min/1.73m2 >60 mL/min/1.73m2 GLUCOSE 88 mg/dL 70-125 mg/dL POTASSIUM 3.9 mmol/L 3.5-5.0 mmol/L PROTEIN, TOTAL 6.4 g/dL 6.0-8.0 g/dL SODIUM 140 mmol/L 136-145 mmol/L THYROID CASCADE Reviewed date:11/12/2018 14:39:11 Interpretation: Performing Lab:, [facility] [address] [place] [address] Notes/Report: THYROID STIMULATING HORMONE 1.13 uIU/mL 0.30-5.00 uIU /mL HEMOGRAM II w/o diff Reviewed date:11/12/2018 14:38:34 Interpretation: Performing Lab:, [facility] [address] [place] [address] Notes/Report: HEMATOCRIT 43.1 % 40.0-54.0 % HEMOGLOBIN 14.4 g/dL 14.0-18.0 g/dL MEAN CORPUSCULAR HEMOGLOBIN 27.9 pg 27.0-34.0 pg MEAN CORPUSCULAR HEMOGLOBIN CONC 33.4 g/dL 32.0-36. 0 g/dL MEAN CORPUSCULAR VOLUME 83 fL 80-100 fL PLATELET COUNT 200 thou/uL 140-440 thou/uL RED BLOOD CELL COUNT 5.17 mill/uL 4.40-6.20 mill/uL RED CELL DISTRIBUTION WIDTH 13.6 % 11.0-14.5 % WHITE BLOOD CELL COUNT 5.0 thou/uL 4.0-11.0 thou/uL LIPID CASCADE Reviewed date:11/12/2018 14:37:23 Interpretation: Performing Lab:, [facility] [address] [place] [address]26 Notes/Report: CHOLESTEROL 117 mg/dL <=199 mg/dL HDL CHOLESTEROL 38 mg/dL >=40 mg/dL LDL CHOLESTEROL CALCULATED 62 mg/dL <=129 mg/dL TRIGLYCERIDES 85 mg/dL <=149 mg/dL PSA SCREENING Reviewed date:11/12/2018 14:37:43 Interpretation: Performing Lab:, [facility] [address] [place] [address] Notes/Report: PROSTATE SPECIFIC ANTIGEN 0.3 ng/mL 0.0-6.5 ng/mL COMPREHENSIVE METABOLIC Reviewed date:08/08/2016 15:22:44 Interpretation: Performing Lab:, [facility] [address] Notes/Report: ALBUMIN 3.9 g/dL 3.5-5.0 g/dL ALKALINE PHOSPHATASE 64 U/L 45-120 U/L ALT 23 U/L 0-45 U/L ANION GAP, CALCULATION 9 mmol/L 5-18 mmol/L AST 16 U/L 0-40 U/L BILIRUBIN, TOTAL 1.1 mg/dL 0.0-1.0 mg/dL BLOOD UREA NITROGEN 15 mg/dL 8-22 mg/dL CALCIUM 8.9 mg/dL 8.5-10.5 mg/dL CHLORIDE 107 mmol/L 98-107 mmol/L CO2 24 mmol/L 22-31 mmol/L CREATININE 0.90 mg/dL 0.70-1.30 mg/dL GFR MDRD NON AF AMER >60 mL/min/1.73m2 >60 mL/min/1.73 m2 GFR MDRD AF AMER >60 mL/min/1.73m2 >60 mL/min/1.73m2 GLUCOSE 101 mg/dL 70-125 mg/dL POTASSIUM 3.7 mmol/L 3.5-5.0 mmol/L PROTEIN, TOTAL 6.7 g/dL 6.0-8.0 g/dL SODIUM 140 mmol/L 136-145 mmol/L LIPID CASCADE Reviewed date:08/08/2016 15:23:00 Interpretation: Performing Lab:, [facility] [address] [place] [address] Notes/Report: CHOLESTEROL 124 mg/dL <=199 mg/dL HDL CHOLESTEROL 33 mg/dL >=40 mg/dL LDL CHOLESTEROL CALCULATED 59 mg/dL <=129 mg/dL TRIGLYCERIDES 161 mg/dL <=149 mg/dL CELLDYN-CBC withOUT DIFF Reviewed date:08/08/2016 15:23:14 Interpretation: Performing Lab: Notes/Report: HCT 45.7 % 40.0-54.0 % HGB 15.3 g/dL 14.0-18.0 g/dL MCH 28.1 pg 27.0-34.0 pg MCHC 33.5 g/dL 32.0-36.0 g/dL MCV 84.0 fL 80.0-100.0 fL PLT 199.0 K/uL 140.0-440.0 K/uL RBC 5.44 M/uL 4.40-6.20 M/uL RDW 12.2 % 11.0-14.5 % WBC 5.2 K/uL 4.0-11.0 K/uL COMPREHENSIVE METABOLIC Reviewed date:11/16/2015 17:02:57 Interpretation: Performing Lab:, [facility] [address] [place] [address] Notes/Report: ALBUMIN 4.0 g/dL 3.5-5.0 g/dL ALKALINE PHOSPHATASE 69 U/L 45-120 U/L ALT 22 U/L 0-45 U/L ANION GAP, CALCULATION 9 mmol/L 5-18 mmol/L AST 14 U/L 0-40 U/L BILIRUBIN, TOTAL 1.3 mg/dL 0.0-1.0 mg/dL BLOOD UREA NITROGEN 15 mg/dL 8-22 mg/dL CALCIUM 9.1 mg/dL 8.5-10.5 mg/dL CHLORIDE 109 mmol/L 98-107 mmol/L CO2 23 mmol/L 22-31 mmol/L CREATININE 0.82 mg/dL 0.70-1.30 mg/dL GFR MDRD NON AF AMER >60 mL/min/1.73m2 >60 mL/min/1.73 m2 GFR MDRD AF AMER >60 mL/min/1.73m2 >60 mL/min/1.73m2 GLUCOSE 94 mg/dL 70-125 mg/dL POTASSIUM 4.1 mmol/L 3.5-5.0 mmol/L PROTEIN, TOTAL 7.0 g/dL 6.0-8.0 g/dL SODIUM 141 mmol/L 136-145 mmol/L LIPID CASCADE Reviewed date:11/16/2015 17:04:32 Interpretation: Performing Lab:, [facility] [address] [place] [id number] Notes/Report: CHOLESTEROL 136 mg/dL <=199 mg/dL HDL CHOLESTEROL 41 mg/dL >=40 mg/dL LDL CHOLESTEROL CALCULATED 74 mg/dL <=129 mg/dL TRIGLYCERIDES 107 mg/dL <=149 mg/dL PSA SCREENING Reviewed date:11/16/2015 17:03:22 Interpretation: Performing Lab:, [facility]., [address] [place] [id number] Notes/Report: PROSTATE SPECIFIC ANTIGEN 0.4 ng/mL 0.0-4.5 ng/mL CELLDYN-CBC withOUT DIFF Reviewed date:11/13/2015 19:23:35 Interpretation: Performing Lab: Notes/Report: HCT 45.0 % 40.0-54.0 % HGB 14.6 g/dL 14.0-18.0 g/dL MCH 27.6 pg 27.0-34.0 pg MCHC 32.4 g/dL 32.0-36.0 g/dL MCV 85.1 fL 80.0-100.0 fL PLT 253.0 K/uL 140.0-440.0 K/uL RBC 5.29 M/uL 4.40-6.20 M/uL RDW 12.3 % 11.0-14.5 % WBC 5.1 K/uL 4.0-11.0 K/uL Basic Metabolic Profile Reviewed date:06/16/2015 05:16:45 Interpretation: Performing Lab:, [facility] [address] [place] [address] Notes/Report: ANION GAP, CALCULATION 10 mmol/L 5-18 mmol/L BLOOD UREA NITROGEN 11 mg/dL 8-22 mg/dL CALCIUM 9.5 mg/dL 8.5-10.5 mg/dL CHLORIDE 105 mmol/L 98-107 mmol/L CO2 26 mmol/L 22-31 mmol/L CREATININE 0.88 mg/dL 0.70-1.30 mg/dL GFR MDRD NON AF AMER >60 mL/min/1.73m2 >60 mL/min/1.73 m2 GFR MDRD AF AMER >60 mL/min/1.73m2 >60 mL/min/1.73m2 GLUCOSE 96 mg/dL 70-125 mg/dL POTASSIUM 4.3 mmol/L 3.5-5.0 mmol/L SODIUM 141 mmol/L 136-145 mmol/L THYROID CASCADE Reviewed date:06/16/2015 05:16:45 Interpretation: Performing Lab:, [facility]., [address] [place] [address] Notes/Report: THYROID STIMULATING HORMONE 1.29 uIU/mL 0.30-5.00 uIU /mL Ultrasound : Neck and/or Lym ph Nodes Reviewed date:06/16/2015 05:16:45 Interpretation: Performing Lab: Notes/Report: LIPID CASCADE Reviewed date:08/23/2014 08:46:55 Interpretation:LDL 63 goal less than 100 Performing Lab:, [facility]., [address] [place] [address] Notes/Report: CHOLESTEROL 131 mg/dL <=199 mg/dL HDL CHOLESTEROL 36 mg/dL >=40 mg/dL LDL CHOLESTEROL CALCULATED 63 mg/dL 0-129 mg/dL TRIGLYCERIDES 158 mg/dL <=149 mg/dL Colonoscopy Reviewed date:02/16/2014 14:11:59 Interpretation:polyp keshia 3 years Performing Lab: Notes/Report: CELLDYN-CBC WITH DIFF Reviewed date:08/21/2013 22:57:29 Interpretation: Performing Lab: Notes/Report: GRAN 2.6 1.7-7.7 GRAN% 54.6 % 50.0-70.0 % HCT 42.1 % 40.0-54.0 % HGB 14.2 g/dL 14.0-18.0 g/dL LYM 1.7 0.7-3.5 LYM% 34.6 % 20.0-40.0 % MCH 29.1 pg 27.0-34.0 pg MCHC 33.7 g/dL 32.0-36.0 g/dL MCV 86.3 fL 80.0-100.0 fL MID 0.5 0.0-0.9 MID% 10.8 % 2.0-10.0 % PLT 203.0 K/uL 140.0-440.0 K/uL RBC 4.88 M/uL 4.40-6.20 M/uL RDW 13.1 % 11.0-14.5 % WBC 4.8 K/uL 4.0-11.0 K/uL Xray : Chest, two views, PA and lateral Reviewed date:08/25/2013 08:49:24 Interpretation:neg cxr Performing Lab: Notes/Report: Pulse oximetry Reviewed date:08/21/2013 22:56:59 Interpretation:98 Performing Lab: Notes/Report: LIPID CASCADE Reviewed date:08/15/2013 08:01:55 Interpretation:LDL 83 goal less than 100 Performing Lab:, [facility]., [address] [place] [address] Notes/Report: Cholesterol 151 mg/dL < 200 mg/dL HDL Cholesterol 41 mg/dL >39 mg/dL LDL Cholesterol, Calculated 83 mg/dL < 130 mg/dL Triglycerides 135 mg/dL < 150 mg/dL LIPID CASCADE Reviewed date:08/16/2012 16:02:52 Interpretation:LDL 86 goal less than 100 Performing Lab:, [facility]., [address] [place] [address] Notes/Report: Cholesterol 158 mg/dL < 200 mg/dL HDL Cholesterol 41 mg/dL >39 mg/dL LDL Cholesterol, Calculated 86 mg/dL < 130 mg/dL Triglycerides 156 mg/dL < 150 mg/dL CELLDYN-CBC withOUT DIFF Reviewed date:04/08/2012 14:30:10 Interpretation:Hgb 13.1 Performing Lab: Notes/Report: HCT 40.4 % % 40-54 % HGB 13.1 g/dL g/dL 14.0-18.0 g/dL MCH 27.4 pg pg 27-34 pg MCHC 32.4 g/dL g/dL 32.0-36.0 g/dL MCV 84.5 fL fL 80-100 fL PLT 234 K/uL K/uL 140-440 K/uL RBC 4.78 M/uL M/uL 4.40-6.20 M/uL RDW 13.8 % % WBC 5.0 K/uL K/uL 4.0-11.0 K/uL Colonoscopy Reviewed date:03/31/2012 09:35:54 Interpretation:Abnormal Performing Lab: Notes/Report: CELLDYN-CBC withOUT DIFF Reviewed date:03/25/2012 15:02:22 Interpretation:Normal Performing Lab: Notes/Report: HCT 44.1 % % 40-54 % HGB 14.3 g/dL g/dL 14.0-18.0 g/dL MCH 27.9 pg pg 27-34 pg MCHC 32.4 g/dL g/dL 32.0-36.0 g/dL MCV 86.1 fL fL 80-100 fL PLT 207 K/uL K/uL 140-440 K/uL RBC 5.12 M/uL M/uL 4.40-6.20 M/uL RDW 14.2 % % WBC 5.6 K/uL K/uL 4.0-11.0 K/uL FERRITIN Reviewed date:08/15/2011 10:13:30 Interpretation:Normal Performing Lab:, [facility], [address] [place] [address] Notes/Report: Ferritin 28 ng/mL 27-300 ng/mL LIPID CASCADE Reviewed date:08/15/2011 10:10:46 Interpretation:LDL 75 goal less than 100 Performing Lab:, [facility], [address], [place] - [address] Notes/Report: Cholesterol 136 mg/dL < 200 mg/dL HDL Cholesterol 37 mg/dL >39 mg/dL LDL Cholesterol, Calculated 75 mg/dL < 130 mg/dL Triglycerides 120 mg/dL < 150 mg/dL CELLDYN-CBC withOUT DIFF Reviewed date:08/14/2011 09:28:48 Interpretation:Hgb 14.4 Performing Lab: Notes/Report: HCT 43.6 % % 40-54 % HGB 14.4 g/dL g/dL 14.0-18.0 g/dL MCH 28.0 pg pg 27-34 pg MCHC 33.0 g/dL g/dL 32.0-36.0 g/dL MCV 84.7 fL fL 80-100 fL PLT 182 K/uL K/uL 140-440 K/uL RBC 5.15 M/uL M/uL 4.40-6.20 M/uL RDW 12.9 % % WBC 4.3 K/uL K/uL 4.0-11.0 K/uL IRON TRANSFERRIN SATURATION Reviewed date:08/15/2011 10:13:08 Interpretation:Normal Performing Lab:, [facility]., [address] [place] [address] Notes/Report: Iron 105 ug/dL 42-175 ug/dL Transferrin 258 mg/dL 212-360 mg/dL Transferrin IBC 323 ug/dL 313-563 ug/dL Transferrin Saturation 33 % 20-50 % CELLDYN-CBC withOUT DIFF Reviewed date:11/29/2010 09:16:04 Interpretation:Hgb 13.8 Performing Lab: Notes/Report: HCT 41.4 % % 40-54 % HGB 13.8 g/dL g/dL 14.0-18.0 g/dL MCH 25.7 pg pg 27-34 pg MCHC 33.3 g/dL g/dL 32.0-36.0 g/dL MCV 77.2 fL fL 80-100 fL PLT 197 K/uL K/uL 140-440 K/uL RBC 5.36 M/uL M/uL 4.40-6.20 M/uL RDW 20.4 % % 11.0-14.5 % WBC 3.9 K/uL K/uL 4.0-11.0 K/uL TSH Reviewed date:10/23/2010 07:52:22 Interpretation:Normal Performing Lab:, [address] [address] Notes/Report: FERRITIN Reviewed date:10/23/2010 07:52:03 Interpretation:9 Performing Lab:, [address] [address] Notes/Report: Ferritin 9 ng/mL 27-300 ng/mL VITAMIN B12 Reviewed date:10/23/2010 07:51:17 Interpretation:Normal Performing Lab:, [address] [address] Notes/Report: Vitamin B12 403 pg/mL 223-1132 pg/mL CELLDYN-CBC withOUT DIFF Reviewed date:10/18/2010 16:35:37 Interpretation:Hgb 12.3 Performing Lab: Notes/Report: HCT 38.1 % % 40-54 % HGB 12.3 g/dL g/dL 14.0-18.0 g/dL MCH 24.2 pg pg 27-34 pg MCHC 32.3 g/dL g/dL 32.0-36.0 g/dL MCV 74.9 fL fL 80-100 fL PLT 217 K/uL K/uL 140-440 K/uL RBC 5.09 M/uL M/uL 4.40-6.20 M/uL RDW 17.1 % % 11.0-14.5 % WBC 3.7 K/uL K/uL 4.0-11.0 K/uL IRON TRANSFERRIN SATURATION Reviewed date:10/23/2010 07:56:11 Interpretation:sat@7% Performing Lab:, [address] [address] Notes/Report: Iron 27 ug/dL 42-175 ug/dL Transferrin 295 mg/dL 212-360 mg/dL Transferrin IBC 368 ug/dL 313-563 ug/dL Transferrin Saturation 7 % 20-50 % CELLDYN-CBC withOUT DIFF Reviewed date:07/25/2010 15:03:03 Interpretation:Hgb 10.7 Performing Lab: Notes/Report: HCT 33.8 % % 40-54 % HGB 10.7 g/dL g/dL 14.0-18.0 g/dL MCH 26.4 pg pg 27-34 pg MCHC 31.7 g/dL g/dL 32.0-36.0 g/dL MCV 83.5 fL fL 80-100 fL PLT 248 K/uL K/uL 140-440 K/uL RBC 4.05 M/uL M/uL 4.40-6.20 M/uL RDW 13.9 % % 11.0-14.5 % WBC 4.3 K/uL K/uL 4.0-11.0 K/uL AST (SGOT) Reviewed date:05/14/2010 17:08:42 Interpretation:Normal Performing Lab:, [facility]., [address] [place] [address] Notes/Report: AST (SGOT) 16 IU/L < 41 IU/L LIPID CASCADE Reviewed date:05/14/2010 17:11:16 Interpretation:LDL@79 goal <100 Performing Lab:, [place] [address] Notes/Report: Cholesterol 147 mg/dL < 200 mg/dL HDL Cholesterol 40 mg/dL >39 mg/dL LDL Cholesterol, Calculated 79 mg/dL < 130 mg/dL Triglycerides 141 mg/dL < 150 mg/dL PSA SCREENING Reviewed date:05/14/2010 17:11:36 Interpretation:Normal Performing Lab:, [place] [address] Notes/Report: PSA 0.3 ng/mL < 4.6 ng/mL Colonoscopy Reviewed date:01/08/2009 10:59:19 Interpretation:adenoma keshia 3 years Performing Lab: Notes/Report: Glucose (82306) Reviewed date:10/26/2008 14:39:42 Interpretation:89 Performing Lab: Notes/Report: Glucose 89 70 - 120 mg/dl AST (SGOT) Reviewed date:10/27/2008 09:15:51 Interpretation:Normal Performing Lab:, [facility]., [address] [place] [address] Notes/Report: AST (SGOT) 16 IU/L < 41 IU/L LIPID CASCADE Reviewed date:10/27/2008 16:58:25 Interpretation:LDL@72 goal <100 Performing Lab:, [facility].[place] [address] Notes/Report: Cholesterol 129 mg/dL < 200 mg/dL HDL Cholesterol 36 mg/dL >39 mg/dL LDL Cholesterol, Calculated 72 mg/dL < 130 mg/dL Triglycerides 103 mg/dL < 150 mg/dL RAPID STREP, THROAT Reviewed date:09/17/2008 16:29:15 Interpretation:Negative Performing Lab: Notes/Report: Rapid Strep, Throat: negative AST (SGOT) Reviewed date:02/07/2008 09:03:23 Interpretation:Normal Performing Lab:, , [facility] [address] [facility], [place] [address] [place] Notes/Report: AST (SGOT) 18 IU/L < 41 IU/L LIPID CASCADE Reviewed date:02/11/2008 12:05:14 Interpretation:LDL@72 goal <100 Performing Lab:, , [facility]., [address] [facility] -[address] - [place] Notes/Report: Cholesterol 146 mg/dL < 200 mg/dL HDL Cholesterol 35 mg/dL >39 mg/dL LDL Cholesterol, Calculated 72 mg/dL < 130 mg/dL Triglycerides 196 mg/dL < 150 mg/dL PSA SCREENING Reviewed date:02/07/2008 09:03:06 Interpretation:Normal Performing Lab:, , [facility]., [address] [facility], [place] -[address] [place] Notes/Report: PSA 0.3 ng/mL < 3.6 ng/mL AST (SGOT) Reviewed date:02/17/2006 08:57:39 Interpretation:Normal Performing Lab: Notes/Report: AST (SGOT) 30 IU/L < 41 IU/L LIPID CASCADE Reviewed date:02/17/2006 08:57:14 Interpretation:Therapeutic Performing Lab: Notes/Report: Cholesterol 142 mg/dL < 200 mg/dL HDL Cholesterol 29 mg/dL >39 mg/dL LDL Cholesterol, Calculated 78 mg/dL < 130 mg/dL Triglycerides 173 mg/dL < 150 mg/dL PSA SCREENING Reviewed date:02/17/2006 08:56:40 Interpretation:Normal Performing Lab: Notes/Report: PSA 0.3 ng/mL < 3.6 ng/mL AST (SGOT) Reviewed date: Interpretation: Performing Lab: Notes/Report: AST (SGOT) 23 IU/L < 41 IU/L LIPID CASCADE Reviewed date: Interpretation: Performing Lab: Notes/Report: Cholesterol 127 mg/dL < 200 mg/dL HDL Cholesterol 38 mg/dL >39 mg/dL LDL Cholesterol, Calculated 70 mg/dL < 130 mg/dL Triglycerides 96 mg/dL < 150 mg/dL AST (SGOT) Reviewed date: Interpretation: Performing Lab: Notes/Report: AST (SGOT) 17 IU/L < 41 IU/L LIPID PROFILE use [place] [place] as of [id number] Reviewed date: Interpretation: Performing Lab: Notes/Report: Cholesterol 130 mg/dL < 200 mg/dL HDL Cholesterol 36 mg/dL >39 mg/dL LDL Cholesterol, Calculated 78 mg/dL < 130 mg/dL Triglycerides 81 mg/dL < 150 mg/dL AST (SGOT) Reviewed date: Interpretation: Performing Lab: Notes/Report: AST (SGOT) 10 IU/L < 41 IU/L LIPID PROFILE use [place] [place] as of [id number] Reviewed date: Interpretation: Performing Lab: Notes/Report: Cholesterol 170 mg/dL < 200 mg/dL HDL Cholesterol 39 mg/dL >39 mg/dL LDL Cholesterol, Calculated 108 mg/dL < 130 mg/dL Triglycerides 117 mg/dL < 150 mg/dL PSA SCREENING Reviewed date: Interpretation: Performing Lab: Notes/Report: PSA 0.3 ng/mL < 3.6 ng/mL AST (SGOT) Reviewed date: Interpretation: Performing Lab: Notes/Report: AST (SGOT) 14 IU/L < 41 IU/L LIPID PROFILE use [employer] [place] as of [id number] Reviewed date: Interpretation: Performing Lab: Notes/Report: Cholesterol 159 mg/dL < 200 mg/dL HDL Cholesterol 34 mg/dL >39 mg/dL LDL Cholesterol, Calculated 110 mg/dL < 130 mg/dL Triglycerides 74 mg/dL < 150 mg/dL PSA SCREENING Reviewed date: Interpretation: Performing Lab: Notes/Report: PSA 0.3 ng/mL < 3.6 ng/mL REASON FOR VISIT No Information MEDICAL (GENERAL) HISTORY Type Description Date Medical History DOFV - [birth year]1991 Medical History Hx of atrial septal defect with repair Medical History Hx of previous CVA 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 septal defect Medical History Chronic cerumen impaction Medical History Hyperlipidemia Medical History GERD (PRN omeprazole) Surgical History Oral surgery Surgical History ASD repair 10-30-04 Hospitalization History Stroke 1990 Hospitalization History GI bleed--diverticular 0 06/2010, 03/31 Hospitalization History severe pneumonia as an i nfant MENTAL STATUS No Information ASSESSMENTS Encounter Date Diagnosis Assessment Notes Treatment Notes Treatment Clinical Notes Apr, Hyperlipidemia, unspecified hyperlipidemia type (ICD-10 - E78.5) Apr, Essential hypertension (ICD-10 - I10) Jan, Hyperlipidemia, unspecified hyperlipidemia type (ICD-10 - E78.5) Jan, Encounter for Medicare annual wellness exam (ICD-10 - Z00.00) Jan, Essential hypertension (ICD-10 - I10) BP at goal on current regimen. no changes made. baseline BMP obtained. Jan, Prostate cancer screening (ICD-10 - Z12.5) Jan, Other Current provid ers and suppliers list as provided by the patient is scanned into the patient document section of the EMR. Apr, History of colon polyps (ICD-10 - Z86.010) Oct, Encounter for immunization (ICD-10 - Z23) Oct, Adult general medica l exam (ICD-10 - Z00.00) Oct, Other and unspecifie d hyperlipidemia (ICD-10 - E78.5) Oct, Encounter for prostate cancer screening (ICD-10 - Z12.5) Oct, Screening for thyroi d disorder (ICD-10 - Z13.29) Jan, Acute bronchitis, unspecified (ICD-10 - J20.9) Symptomatic care. Call if not improving or if symptoms worsen. Jul, Other and unspecifie d hyperlipidemia (ICD-10 - E78.5) Healthy living material was printed Jul, Gastro-esophageal reflux disease without esophagitis (ICD-10 - K21.9) Jul, Other Healthy Living Apr, Bronchitis (ICD-10 - J40) Feb, Acute bronchitis (ICD-10 - J20.9) Symptomatic care. Call if not improving or if symptoms worsen. Feb, Hyperlipidemia, unspecified (ICD-10 - E78.5) Oct, Hyperlipidemia, unspecified (ICD-10 - E78.5) Oct, Gastro-esophageal reflux disease without esophagitis (ICD-10 - K21.9) Oct, Encounter for screening for malignant neoplasm of prostate (ICD-10 - Z12.5) May, Bronchitis (ICD-10 - J40) May, Cervical mass (ICD-1 0 - N88.8) May, Nodule of neck (ICD-10 - R22.1) May, Other Healthy living material was printed Healthy Living August, Viral syndrome (ICD9-CM - 079.99) Explained that the current illness appears to be viral. Antibiotics do not have a role in treatment at this time. If not improved or worsens the patient was advised to call back. August, Hyperlipidemia (ICD9-CM - 272.4) stable August, Need for pneumococca l vaccine (ICD9-CM - V03.82) Sep, Hearing loss (ICD9-C M - 389.9) discussed hearing discussed encouraged evaluation by audiology August, Cough (ICD9-CM - 786.2) reviwed cxr with pt. and blood count . treat symptoms. rtc if condition worse. August, Acute sinusitis (ICD9-CM - 461.9) as above. advised of risk and potential side effects. , Pathophysiology of this condition/disease process was explained to the patient in detail. Anticipated course reviewed. Timing and reason for call back or office visit discussed. Jul, Hyperlipidemia (ICD9-CM - 272.4) discussed healthy eating Jul, Need for vaccination against Streptococcus pneumoniae (ICD9-CM - V03.82) Jul, Medial epicondylitis of right elbow (ICD9-CM - 726.31) discussed relative rest, NSAIDS if desired, PT if not improving May, Acute sinusitis (ICD9-CM - 461.9) Fluids, rest, supportive measures for fever/symptom relief, Follow up 4-5 days if not improving. Immediate f/u if high fever, SOB, increasing focal pain. Nov, Hyperlipidemia (ICD9-CM - 272.4) Jul, Hyperlipidemia (ICD9-CM - 272.4) stable Jun, Acute bronchitis (ICD9-CM - 466.0) Symptomatic care. Call if not improving or if symptoms worsen. Mar, DIVERTICULITIS COLON W/HEMORRHAGE (ICD9-CM - 562.13) reviewed all hospital notes and tests including endoscopy and colonoscopy, discussed high fiber diet and continued hydration--discussed risks/benefits of ASA--pt has opted to stop ASA due to recurrent bleeding Mar, Dietary surveillance and counseling (ICD9-CM - V65.3) healthy living,Patient Education was given Mar, Blood in stool (ICD9-CM - 578.1) discussed probable hemorrhoidal tear--pt did have Sig diverticular bleed in the past will watch for further SX's--to ER if dizziness/lightheade d/recurrent bleeding or clots Mar, Dietary surveillance and counseling (ICD9-CM - V65.3) healthy living,Patient Education was given Mar, Need for prophylacti c vaccination and inoculation, Influenza (ICD9-CM - V04.81) Jul, Hyperlipidemia (ICD9-CM - 272.4) healthy eating and walking discussed Jul, Need for prophylacti c vaccination and inoculation, Other viral diseases (ICD9-CM - V04.89) Risk/benefit/cost reviewed with patient. Vaccination given today after discussion. Jul, Blood loss anemia (ICD9-CM - 280.0) Jul, Other specified counseling (ICD9-CM - V65.49) as above Nov, Hyperlipidemia (ICD9-CM - 272.4) Oct, GI bleeding NOS (ICD9-CM - 578.9) Oct, Anemia NOS (ICD9-CM - 285.9) Jul, GI bleeding NOS (ICD9-CM - 578.9) discussed hospitalization in detail Jul, Need for prophylacti c vaccination and inoculation, Influenza (ICD9-CM - V04.81) Apr, Hyperlipidemia (ICD9-CM - 272.4) Apr, ROUTINE MEDICAL EXAM (ICD9-CM - V70.0) Apr, Hyperlipidemia (ICD9-CM - 272.4) Apr, Special screening fo r malignant neoplasm of prostate (ICD9-CM - V76.44) Apr, Other discussed and declined flu shot today Jan, Acute bronchitis (ICD9-CM - 466.0) Oct, Hyperlipidemia (ICD9-CM - 272.4) healthy eating discussed Oct, SCREEN-DIABETES MELLITUS (ICD9-CM - V77.1) August, Acute bronchitis NOS (ICD9-CM - 466.0) August, Acute pharyngitis (ICD9-CM - 462) Symptomatic care. Call if not improving or if symptoms worsen. Jul, Acute bronchitis (ICD9-CM - 466.0) Jun, Bronchitis NOS (ICD9-CM - 490) Rest, fluids, Tylenol for symptoms. Call if symptoms worsen or not improved in a week. Jun, Hyperlipidemia (ICD9-CM - 272.4) Jun, SCREEN-DIABETES MELLITUS (ICD9-CM - V77.1) Jan, Bronchitis NOS (ICD9-CM - 490) Fluids, rest, supportive measures for fever/symptom relief , Follow up 4-5 days if not improving. Immediate f/u if high fever, SOB, increasing focal pain. Jan, Hyperlipemia (ICD9-C M - 272.4) Jan, Special screening fo r malignant neoplasm of prostate (ICD9-CM - V76.44) Jan, Daqadbhprc-nmrnqmw-r e rtussis, combined [DTP] [DtaP] (ICD9-CM - V06.1) Dec, Bronchitis NOS (ICD9-CM - 490) discussed conservative care--pt will call if sx's not improving in the next 4-5 days, Fluids, rest, supportive measures for fever/symptom relief , Follow up 4-5 days if not improving. Immediate f/u if high fever, SOB, increasing focal pain. May, Bronchitis NOS (ICD9-CM - 490) Fluids, rest, supportive measures for fever/symptom relief , Follow up 4-5 days if not improving. Immediate f/u if high fever, SOB, increasing focal pain. Jan, Hyperlipemia (ICD9-C M - 272.4) Medication effects, side effects and interactions reviewed with patient. Questions were answered. Patient to call with any problems. , Medication changes will be considered based on lab results, patient will be notified. Jan, Special screening fo r malignant neoplasm of prostate (ICD9-CM - V76.44) Jan, Other Referral To Jun, Parotiditis (ICD9-CM - 527.2) Recently finished course of antibiotics. Discussed treatment with warm compresses and sucking on lemon drops. Discussed signs and symptoms of worsening for which he should be seen. Jun, Costochondritis (ICD9-CM - 733.6) Tenderness at the sternal notch as well as along accessory muscles of right neck. Discussed rest. Pt. noted some improvement with warm moist heat. Cont. with heat compresses. Ibuprofen given with instructions. Discussed signs and symptoms of worsening for which he should return. Jun, Acute lymphadenitis (ICD9-CM - 683) Follow up 4-5 days if not improving. Imediate f/u if high fever, SOB, increasing focal pain. PLAN OF TREATMENT Medication Medication Name Sig Start Date Stop Date Lisinopril 10 MG 1 tab(s) orally once a day Atorvastatin Calcium 20 MG 1 tab(s) orally once a day Treatment Notes Assessment Notes Clinical Notes Bronchitis NOS Fluids, rest, suppor tive measures for fever/symptom relief , Follow up 4-5 days if not improving. Immediate f/u if high fever, SOB, increasing focal pain. Bronchitis NOS discussed conservati ve care--pt will call if sx's not improving in the next 4-5 days, Fluids, rest, supportive measures for fever/symptom relief , Follow up 4-5 days if not improving. Immediate f/u if high fever, SOB, increasing focal pain. Acute lymphadenitis Follow up 4-5 days i f not improving. Imediate f/u if high fever, SOB, increasing focal pain. Blood in stool discussed probable h emorrhoidal tear--pt did have Sig diverticular bleed in the past will watch for further SX's--to ER if dizziness/lightheaded/recurrent bleeding or clots Acute sinusitis Fluids, rest, suppor tive measures for fever/symptom relief, Follow up 4-5 days if not improving. Immediate f/u if high fever, SOB, increasing focal pain. DIVERTICULITIS COLON W/HEMORRHAGE review ed all hospital notes and tests including endoscopy and colonoscopy, discussed high fiber diet and continued hydration--discussed risks/benefits of ASA--pt has opted to stop ASA due to recurrent bleeding Other and unspecified hyperlipidemia Healthy living material was printed Acute bronchitis Symptomatic care. Ca ll if not improving or if symptoms worsen. Other specified counseling as above Essential hypertension BP at goal on cur rent regimen. no changes made. baseline BMP obtained. Bronchitis NOS Fluids, rest, suppor tive measures for fever/symptom relief , Follow up 4-5 days if not improving. Immediate f/u if high fever, SOB, increasing focal pain. Bronchitis NOS Rest, fluids, Tyleno l for symptoms. Call if symptoms worsen or not improved in a week. Dietary surveillance and counseling heal thy living,Patient Education was given Cough reviwed cxr with pt. and blood count . treat symptoms. rtc if condition worse. Need for prophylactic vaccin ation and inoculation, Other viral diseases Risk/benefit/cost reviewed with patient. Vaccination given today after discussion. Hearing loss discussed hearing di scussed encouraged evaluation by audiology Costochondritis Tenderness at the st ernal notch as well as along accessory muscles of right neck. Discussed rest. Pt. noted some improvement with warm moist heat. Cont. with heat compresses. Ibuprofen given with instructions. Discussed signs and symptoms of worsening for which he should return. Viral syndrome Explained that the c urrent illness appears to be viral. Antibiotics do not have a role in treatment at this time. If not improved or worsens the patient was advised to call back. Dietary surveillance and counseling heal thy living,Patient Education was given Hyperlipemia Medication effects, side effects and interactions reviewed with patient. Questions were answered. Patient to call with any problems. , Medication changes will be considered based on lab results, patient will be notified. Hyperlipidemia stable Parotiditis Recently finished co urse of antibiotics. Discussed treatment with warm compresses and sucking on lemon drops. Discussed signs and symptoms of worsening for which he should be seen. Acute pharyngitis Symptomatic care. Ca ll if not improving or if symptoms worsen. GI bleeding NOS discussed hospitaliz ation in detail Hyperlipidemia discussed healthy ea ting Medial epicondylitis of right elbow disc ussed relative rest, NSAIDS if desired, PT if not improving Acute bronchitis Symptomatic care. Ca ll if not improving or if symptoms worsen. Acute sinusitis as above. advised of risk and potential side effects. , Pathophysiology of this condition/disease process was explained to the patient in detail. Anticipated course reviewed. Timing and reason for call back or office visit discussed. Acute bronchitis, unspecified Symptomati c care. Call if not improving or if symptoms worsen. Hyperlipidemia stable Hyperlipidemia healthy eating and w radha discussed Hyperlipidemia healthy eating discu ssed Referrals Referral Date Details SPE Routine Eye exam , [address] [place], [address], Colonoscopy, [address] [place], [address], [place] Dr. Goldman--f/u diverticular bleed, [address] [place], [address], [facility], [address] [place], [address], [facility], [address] [place], [address], Colonoscopy, [facility], [address] [place], [address], Insurance Providers Payer Name Payer Address Payer Phone Insured Name Patient Relationship to Insured Coverage Start Date Coverage End Date Subscriber Number Group Number [facility] Medicare Advantage PPO [address] [address] [facility] [id number] [place], [place] lter M Self - patient is the insured 0 [id number]
[2022-10-16] MEDS: 0.9 % SODIUM CHLORIDE 500 ML 500 ML IV (15:07)
[2022-10-16 16:18] LABS: Basophils Absolute Auto 0.04 K/uL (0.00-0.30); Basophils Percent Auto 0.6 % (0.0-3.0); Eosinophils Absolute Auto 0.04 K/uL (0.00-0.50); Eosinophils Percent Auto 0.6 % (0.0-7.0); Hematocrit 31.5 % (37.0-53.0); Immature Granulocytes Abs Auto 0.01 K/uL (0.00-0.30); Immature Granulocytes Pct Auto 0.1 %; Lymphocytes Percent Auto 13.2 % (20-44); Mean Corpuscular HGB Conc 32 gm/dL (32-36); Mean Corpuscular Hemoglobin 25 pg (26-34); Mean Corpuscular Volume 78 fL (80-100); Monocytes Percent Auto 7.1 % (0.0-11.0); Neutrophils Percent Auto 78.4 % (42.0-72.0); Platelet Count* 200 K/uL (140-440); RDW Coefficient of Variation % 17.7 % (11.5-15.5); Red Blood Count 4.04 m/uL (4.30-5.90)
[2022-10-16 16:22] LABS: INR 1.07 (0.91-1.10); Prothrombin Time 14.5 Seconds
--- NOTE | 2022-10-16 16:36 | ED.NURSE ---
reanna tenorio aware of admission. is feeling better. has had a total of 1000 ml. (had 500 ml per ems bag.)
[2022-10-16 16:37] LABS: Slide Review Reflex No
[2022-10-16 16:41] LABS: Sodium* 138 mmol/L (135-149)
[2022-10-16 16:42] LABS: Alanine Aminotransferase* 21 U/L (4-50); Albumin* 3.3 g/dL (3.3-5.0); Alkaline Phosphatase* 46 U/L (40-150); Aspartate Amino Transferase* 23 U/L (12-35); Bilirubin Total* 1.2 mg/dL (0.1-1.5); Blood Urea Nitrogen* 24 mg/dL (7-30); C Reactive Protein* < 0.5 mg/dL (0.5-1.0); Calcium* 8.3 mg/dL (8.4-10.6); Carbon Dioxide* 25 mmol/L (20-32); Chloride* 109 mmol/L (96-114); Creatinine* 0.9 mg/dL (0.5-1.5); Est. Creatinine Clearance* 69.03; Estimated Glomerular Filt Rate 90 ml/min; Glucose* 96 mg/dL (60-115); Potassium* 4.2 mmol/L (3.6-5.1); Total Protein* 5.8 g/dL (6.0-8.3)
--- NOTE | 2022-10-16 17:40 | ED.NURSE ---
report was given to juan day. will go to 260.
--- NOTE | 2022-10-16 18:31 | P.IMHP_ITS ---
Hospitalist- H&P: HPI History of Present Illness Date Seen: 10/16/22 Chief complaint: GI bleed Narrative: Praful Carbajal is a 72 year old male with a history of recurrent diverticular bleeds presented to the emergency room today for hematochezia. He first noted symptoms yesterday morning (0600 BM), then twice more during the day; he didn't exert himself much and symptoms resolved. He ate a normal supper last night. This morning, he's had more loose stools with bright red blood, then became more melanotic. This morning he also had an episode of lightheadedness and diaphoresis on the toilet. Last BM around 1300. No abdominal pain or nausea. History of lower GI bleeds, first noted in 2010; were less frequent until recently (has had 3 episodes in the past year). Symptoms have previously been attributed to diverticular bleeding. He has never required a blood transfusion. Last EGD and colonoscopy was here with Dr. Eden in May 2022; neither identified an acute source of bleeding. ER Course and Findings: - Hgb 10 (was 11.5 upon hospital discharge in 05/2022); type and screen completed - Normal BUN - initial BP 90/60, improved with IVFs Given anemia and presenting symptoms, patient is admitted to the hospital. Medical history updated below. PCP is Dr. Singh at the [facility]. Review of Systems Status of ROS: Reports: 10 or more systems reviewed and unremarkable except as noted in History and below Narrative: - no recent travel, antibiotics, or new foods [facility] Medical History (Updated 10/16/22 @ 19:57 by Monika Horan MD) Basal cell carcinoma ?C44.91 - Basal cell carcinoma of skin, unspecified (ICD-10) Colon polyp ?K63.5 - Polyp of colon (ICD-10) Hyperlipidemia ?E78.5 - Hyperlipidemia, unspecified (ICD-10) Diverticulitis ?K57.92 - Diverticulitis of intestine, part unspecified, without perforation or abscess without bleeding (ICD-10) Hypertension ?I10 - Essential (primary) hypertension (ICD-10) Surgical History (Updated 10/16/22 @ 19:55 by Monika Horan MD) S/P patent foramen ovale closure (~2004) ?Z87.74 - Personal history of (corrected) congenital malformations of heart and circulatory system (ICD-10) Hx of colonoscopy ?Z98.890 - Other specified postprocedural states (ICD-10) Family History Brother Diabetes Kidney disease Kidney transplanted Paternal Grandfather Diabetes Father Myocardial infarction Social History Narrative: Retired from [employer]. . Lifelong nonsmoker. EtoH 1-2 beers per week. Denies recreational drugs. Full Code. What is your current living situation?: I presently have a place to live Problems where you live: no known problems Problems where you live details: N/A In the past 12 months, utilities in danger of being shut off: no In the past 12 mos, have been you worried that your food would run out before you had money to buy more?: never true In the past 12 mos, the food you bought just didn't last and you didn't have money to buy more?: never true Highest level of school completed/degree received: some college, no degree Smoking Status: Never smoker Do you use any of these nicotine containing products: None Second hand tobacco smoke exposure: No How often do you have a drink containing alcohol: 2-3 times a week How many standard drinks containing alcohol do you have on a typical day: 1 or 2 How often do you have six or more drinks on one occasion: Never AUDIT-C Alcohol total score: 3 Non-prescribed substance use: denies use Caffeine: Yes How often does anyone, including family, friends and others, physically hurt you : never How often does anyone, including family, friends and others, insult or talk down to you: never How often does anyone, including family, friends and others, threaten you with harm: never How often does anyone, including family, friends and others, scream or curse at you: never service: No Meds Home Medications and Allergies Home Medications Medication Instructions Recorded Confirmed Type atorvastatin 20 mg tablet 20 mg PO HS 06/10/22 10/16/22 History lisinopril 10 mg tablet 10 mg PO DAILY 06/10/22 10/16/22 History Allergies Allergy/AdvReac Type Severity Reaction Status Date / Time No Known Drug Allergies Allergy Verified 10/16/22 14:15 Exam Narrative: Exam Narrative: GEN: Alert and oriented, nontoxic in appearance, mild pallor HEENT: EOMIs bilaterally, no scleral icterus CV: RRR, No concerning murmurs, rubs, or gallops R: LCTA bilaterally without concerning wheezing, air movement is adequate Ab: Soft, nontender, nondistended, hyperactive bowel sounds Ext: Trace edema bilateral ankles, symmetric Skin: No concerning skin lesions or rashes on exposed skin Neuro: Nonfocal Psych: Appropriate Const: Vital Signs, click to edit/add: Vital Signs - 24 hr 10/16/22 14:15 10/16/22 14:38 10/16/22 14:45 Temperature 97.7 F Pulse Rate 72 76 Pulse Rate [Pulse Oximeter] 73 Pulse Rate [Right Radial] Respiratory Rate 20 Blood Pressure Blood Pressure [Ri ght Arm] Blood Pressure [Ri ght Upper Arm] 98/68 Pulse Oximetry 98 96 96 Oxygen Delivery Me thod Room Air 10/16/22 15:00 10/16/22 15:01 10/16/22 15:15 Temperature Pulse Rate 71 68 80 Pulse Rate [Pulse Oximeter] Pulse Rate [Right Radial] Respiratory Rate Blood Pressure 98/66 Blood Pressure [Ri ght Arm] Blood Pressure [Ri ght Upper Arm] Pulse Oximetry 95 96 96 Oxygen Delivery Me thod 10/16/22 15:30 10/16/22 15:31 10/16/22 15:45 Temperature Pulse Rate 75 72 70 Pulse Rate [Pulse Oximeter] Pulse Rate [Right Radial] Respiratory Rate Blood Pressure 102/67 Blood Pressure [Ri ght Arm] Blood Pressure [Ri ght Upper Arm] Pulse Oximetry 96 97 97 Oxygen Delivery Me thod 10/16/22 16:00 10/16/22 16:01 10/16/22 16:15 Temperature Pulse Rate 70 71 76 Pulse Rate [Pulse Oximeter] Pulse Rate [Right Radial] Respiratory Rate Blood Pressure 103/67 Blood Pressure [Ri ght Arm] Blood Pressure [Ri ght Upper Arm] Pulse Oximetry 97 97 97 Oxygen Delivery Me thod 10/16/22 16:30 10/16/22 16:31 10/16/22 16:45 Temperature Pulse Rate 75 76 80 Pulse Rate [Pulse Oximeter] Pulse Rate [Right Radial] Respiratory Rate Blood Pressure 113/72 Blood Pressure [Ri ght Arm] Blood Pressure [Ri ght Upper Arm] Pulse Oximetry 98 99 97 Oxygen Delivery Me thod 10/16/22 17:00 10/16/22 17:01 10/16/22 17:15 Temperature Pulse Rate 79 83 81 Pulse Rate [Pulse Oximeter] Pulse Rate [Right Radial] Respiratory Rate Blood Pressure 103/69 Blood Pressure [Ri ght Arm] Blood Pressure [Ri ght Upper Arm] Pulse Oximetry 98 98 97 Oxygen Delivery Me thod 10/16/22 17:30 10/16/22 17:31 10/16/22 18:25 Temperature 97.9 F Pulse Rate 84 81 Pulse Rate [Pulse Oximeter] Pulse Rate [Right Radial] 87 Respiratory Rate 18 Blood Pressure 111/75 Blood Pressure [Ri ght Arm] 115/62 Blood Pressure [Ri ght Upper Arm] Pulse Oximetry 99 97 95 Oxygen Delivery Me thod Room Air Hospitalist - H&P: Result Labs Labs: Short CBC 10/16/22 Range/Units 15:50 WBC 7.20 (4.50-11.00) K/uL Hgb 10.0 L (13.5-17.5) gm/dL Hct 31.5 L (37.0-53.0) % Plt Count 200 (140-440) K/uL BMP 10/16/22 15:50 Sodium 138 Potassium 4.2 Chloride 109 Carbon Dioxide 25 BUN 24 Creatinine 0.9 Glucose 96 Calcium 8.3 L Liver Function 10/16/22 Range/Units 15:50 Total Bilirubin 1.2 (0.1-1.5) mg/dL AST 23 (12-35) U/L ALT 21 (4-50) U/L Alkaline Phosphatase 46 (40-150) U/L Albumin 3.3 (3.3-5.0) g/dL Assessment and Plan Assessment and plan (1) Acute lower GI bleeding: Problem comment: - recurrent, reassuring colonoscopy x2 in 2022 - likely diverticular bleed, recommend f/u with GI as an outpatient to discuss any further workup or intervention - clear liquid diet, follow Hgb Status: Acute (2) Hypertension: Problem comment: - hypotensive on admission, holding Lisinopril Status: Acute (3) Acute blood loss anemia: Problem comment: - 10.0 10/16/22 (11.5 06/12), follow Status: Acute Plan - per above - SCDs for ppx - daughter Krysytna updated at bedside, questions answered. Reviewed indications for transfusion, transfer, etc
[2022-10-16] MEDS: 0.9 % SODIUM CHLORIDE 1000 ml 1,000 ML 125 ML IV (18:38)
[2022-10-16 20:22] LABS: Hemoglobin* 9.6 gm/dL (13.5-17.5)
[2022-10-16] MEDS: PANTOPRAZOLE SODIUM 40 MG INJ IVP (21:13)
[2022-10-16] MEDS: SODIUM CHLORIDE 0.9 % (FLUSH) 10 ML SYRINGE 5 ML IVF (21:19)
[2022-10-17 01:15] LABS: Hemoglobin* 9.1 gm/dL (13.5-17.5)
[2022-10-17 03:00] VITALS: BP 127/78; PULSE 57; RESP 18; TEMP 36.5; O2SAT 97
[2022-10-17] MEDS: 0.9 % SODIUM CHLORIDE 1000 ml 1,000 ML 125 ML IV ×2 (03:24→10:31)
--- NOTE | 2022-10-17 06:06 | PC.NURSE ---
[id number]: Patient up ad benji in room with continuous fluids. Patient with no complaints of pain at this time. Patient remained vitally stable. Patient with one small BM that was blood tinted. Patient with no c/o n/v, abdominal tenderness, h/a or dizziness. Patient able to verbalize needs at this time.
[2022-10-17 06:55] LABS: Basophils Percent Auto 1.4 % (0.0-3.0); Eosinophils Percent Auto 4.6 % (0.0-7.0); Hematocrit 27.3 % (37.0-53.0); Hemoglobin* 8.8 gm/dL (13.5-17.5); Lymphocytes Percent Auto 31.4 % (20-44); Mean Corpuscular HGB Conc 32 gm/dL (32-36); Mean Corpuscular Hemoglobin 25 pg (26-34); Mean Corpuscular Volume 78 fL (80-100); Neutrophils Percent Auto 53.6 % (42.0-72.0); Platelet Count* 164 K/uL (140-440); RDW Coefficient of Variation % 17.9 % (11.5-15.5); White Blood Count* 4.33 K/uL (4.50-11.00)
[2022-10-17 06:59] LABS: Slide Review Reflex No
[2022-10-17 07:07] LABS: Albumin* 1.6 g/dL (3.3-5.0); Chloride* 110 mmol/L (96-114); Sodium* 139 mmol/L (135-149)
[2022-10-17 07:10] LABS: Alkaline Phosphatase* 42 U/L (40-150); Aspartate Amino Transferase* 18 U/L (12-35); Bilirubin Total* 1.7 mg/dL (0.1-1.5); Blood Urea Nitrogen* 18 mg/dL (7-30); Carbon Dioxide* 24 mmol/L (20-32); Creatinine* 0.8 mg/dL (0.5-1.5); Est. Creatinine Clearance* 69.03; Estimated Glomerular Filt Rate 93 ml/min; Total Protein* 5.3 g/dL (6.0-8.3)
[2022-10-17 07:11] LABS: Alanine Aminotransferase* 19 U/L (4-50); Calcium* 7.8 mg/dL (8.4-10.6); Glucose* 86 mg/dL (60-115)
[2022-10-17 08:19] VITALS: BP 125/72; PULSE 65; RESP 16; TEMP 36.6; O2SAT 97
[2022-10-17 08:24] VITALS: PULSE 65
[2022-10-17 10:46] VITALS: BP 122/67; PULSE 68; RESP 16; TEMP 36.6; O2SAT 98
[2022-10-17 12:30] LABS: Hemoglobin* 9.1 gm/dL (13.5-17.5)
--- NOTE | 2022-10-17 13:52 | PM.DS1 ---
DS: Providers Provider Date Seen: 10/17/22 Date of admission: 10/16/22 18:13 Primary care physician: Tommie Singh MD Admitting Clinician: Monika Horan MD Attending Physician on discharge: Monika Horan MD Date of Discharge: 10/17/22 DS: Diagnosis Discharge Diagnosis (1) Acute lower GI bleeding: Status: Acute Problem details: - recurrent, reassuring colonoscopy x2 in 2022 - likely diverticular bleed, recommend f/u with GI as an outpatient to discuss any further workup or intervention - Hgb remained stable (10 --> 9.1), patient had no evidence of lightheadedness or dizziness DS: Summary Hospital Course Hospital Course: Praful is a pleasant 72-year-old male who was admitted to the hospital for recurrent lower GI bleed. This was suspected to be diverticular in nature given history and reassuring colonoscopy x2 within the past 3 months. Patient had normal BMs on hospital day 1, Hgb remained stable, and he was able to advance diet without difficulty. Outpatient f/u with [facility] arranged upon discharge. Comorbidities remained stable. Patient and comfortable with discharge and verbalize understanding of return precautions. Status at Discharge Functional status at discharge: independent ambulation Overall status at discharge: patient is progressing back to baseline Time Spent with Patient Time attestation: Total time spent providing and/or coordinating discharge services: Time spent: Greater than 30 minutes Specific discharge activities: education, scheduling f/u appts, supplement education Exam Narrative: Exam Narrative: GEN: Alert and oriented, nontoxic, mild pallor HEENT: EOMIs bilaterally, no scleral icterus CV: RRR, No concerning murmurs R: LCTA bilaterally, no wheezing, air movement adequate Ab: Soft and nontender with normoactive bowel sounds Ext: wwp, no concerning edema Skin: No concerning skin lesions or rashes on exposed skin Neuro: Nonfocal Psych: Appropriate Const: Vital Signs, click to edit/add: Vital Signs - 24 hr 10/16/22 14:15 10/16/22 14:38 10/16/22 14:45 Temperature 97.7 F Pulse Rate 72 76 Pulse Rate [Pulse Oximeter] 73 Pulse Rate [Right Radial] Respiratory Rate 20 Blood Pressure Blood Pressure [Ri ght Arm] Blood Pressure [Ri ght Upper Arm] 98/68 Pulse Oximetry 98 96 96 Oxygen Delivery Me thod Room Air 10/16/22 15:00 10/16/22 15:01 10/16/22 15:15 Temperature Pulse Rate 71 68 80 Pulse Rate [Pulse Oximeter] Pulse Rate [Right Radial] Respiratory Rate Blood Pressure 98/66 Blood Pressure [Ri ght Arm] Blood Pressure [Ri ght Upper Arm] Pulse Oximetry 95 96 96 Oxygen Delivery Me thod 10/16/22 15:30 10/16/22 15:31 10/16/22 15:45 Temperature Pulse Rate 75 72 70 Pulse Rate [Pulse Oximeter] Pulse Rate [Right Radial] Respiratory Rate Blood Pressure 102/67 Blood Pressure [Ri ght Arm] Blood Pressure [Ri ght Upper Arm] Pulse Oximetry 96 97 97 Oxygen Delivery Me thod 10/16/22 16:00 10/16/22 16:01 10/16/22 16:15 Temperature Pulse Rate 70 71 76 Pulse Rate [Pulse Oximeter] Pulse Rate [Right Radial] Respiratory Rate Blood Pressure 103/67 Blood Pressure [Ri ght Arm] Blood Pressure [Ri ght Upper Arm] Pulse Oximetry 97 97 97 Oxygen Delivery Me thod 10/16/22 16:30 10/16/22 16:31 10/16/22 16:45 Temperature Pulse Rate 75 76 80 Pulse Rate [Pulse Oximeter] Pulse Rate [Right Radial] Respiratory Rate Blood Pressure 113/72 Blood Pressure [Ri ght Arm] Blood Pressure [Ri ght Upper Arm] Pulse Oximetry 98 99 97 Oxygen Delivery Me thod 10/16/22 17:00 10/16/22 17:01 10/16/22 17:15 Temperature Pulse Rate 79 83 81 Pulse Rate [Pulse Oximeter] Pulse Rate [Right Radial] Respiratory Rate Blood Pressure 103/69 Blood Pressure [Ri ght Arm] Blood Pressure [Ri ght Upper Arm] Pulse Oximetry 98 98 97 Oxygen Delivery Me thod 10/16/22 17:30 10/16/22 17:31 10/16/22 18:25 Temperature 97.9 F Pulse Rate 84 81 Pulse Rate [Pulse Oximeter] Pulse Rate [Right Radial] 87 Respiratory Rate 18 Blood Pressure 111/75 Blood Pressure [Ri ght Arm] 115/62 Blood Pressure [Ri ght Upper Arm] Pulse Oximetry 99 97 95 Oxygen Delivery Me thod Room Air 10/16/22 19:00 10/16/22 19:00 10/16/22 22:31 Temperature Pulse Rate 77 Pulse Rate [Pulse Oximeter] Pulse Rate [Right Radial] 87 Respiratory Rate 18 Blood Pressure Blood Pressure [Ri ght Arm] Blood Pressure [Ri ght Upper Arm] Pulse Oximetry Oxygen Delivery Me thod Room Air 10/16/22 23:00 10/16/22 23:00 10/17/22 03:00 Temperature 97.9 F 97.7 F Pulse Rate 77 Pulse Rate [Pulse Oximeter] Pulse Rate [Right Radial] 58 L 57 L Respiratory Rate 18 18 Blood Pressure Blood Pressure [Ri ght Arm] 117/74 127/78 Blood Pressure [Ri ght Upper Arm] Pulse Oximetry 95 97 Oxygen Delivery Me thod Room Air Room Air 10/17/22 08:19 10/17/22 08:24 10/17/22 10:46 Temperature 97.9 F 98 F Pulse Rate 65 Pulse Rate [Pulse Oximeter] Pulse Rate [Right Radial] 65 68 Respiratory Rate 16 16 Blood Pressure Blood Pressure [Ri ght Arm] 125/72 122/67 Blood Pressure [Ri ght Upper Arm] Pulse Oximetry 97 98 Oxygen Delivery Me thod Room Air Room Air DS: Data Data Completed and Pending Labs on day of discharge: Labs from last 24 hours 10/17/22 10/17/22 10/17/22 12:24 06:26 01:10 WBC 4.33 L RBC 3.50 L Hgb 9.1 L 8.8 L 9.1 L Hct 27.3 L MCV 78 L MCH 25 L MCHC 32 RDW Coeff of Brenna 17.9 H Plt Count 164 Neut % (Auto) 53.6 Lymph % (Auto) 31.4 [place] % (Auto) 9.0 Eos % (Auto) 4.6 Baso % (Auto) 1.4 Neut # (Auto) 2.30 Lymph # (Auto) 1.40 [place] # (Auto) 0.40 Eos # (Auto) 0.20 Baso # (Auto) 0.10 INR Sodium 139 Potassium 4.0 Chloride 110 Carbon Dioxide 24 BUN 18 Creatinine 0.8 Estimated Creat Clear 69.03 Estimated GFR 93 Glucose 86 Calcium 7.8 L Total Bilirubin 1.7 H AST 18 ALT 19 Alkaline Phosphatase 42 C-Reactive Protein Total Protein 5.3 L Albumin 1.6 L Blood Type Antibody Screen 10/16/22 10/16/22 20:15 15:50 WBC 7.20 RBC 4.04 L Hgb 9.6 L 10.0 L Hct 31.5 L MCV 78 L MCH 25 L MCHC 32 RDW Coeff of Brenna 17.7 H Plt Count 200 Neut % (Auto) 78.4 H Lymph % (Auto) 13.2 L [place] % (Auto) 7.1 Eos % (Auto) 0.6 Baso % (Auto) 0.6 Neut # (Auto) 5.60 Lymph # (Auto) 1.00 [place] # (Auto) 0.50 Eos # (Auto) 0.04 Baso # (Auto) 0.04 INR 1.07 Sodium 138 Potassium 4.2 Chloride 109 Carbon Dioxide 25 BUN 24 Creatinine 0.9 Estimated Creat Clear 69.03 Estimated GFR 90 Glucose 96 Calcium 8.3 L Total Bilirubin 1.2 AST 23 ALT 21 Alkaline Phosphatase 46 C-Reactive Protein < 0.5 L Total Protein 5.8 L Albumin 3.3 Blood Type B Positive Antibody Screen NEGATIVE Discharge Plan Discharge Disposition: Home, Self-Care Date of Admission: 10/16/22 18:13 Attending Provider on Discharge: Monika Horan Primary Care Provider: Tommie Singh Condition: Stable Anticipated Discharge Date/Time: 10/17/22 13:40 Discharge Medications: New ferrous sulfate 325 mg (65 mg iron) tablet 325 mg PO DAILY Qty: 30 0RF Continued lisinopril 10 mg tablet 10 mg PO DAILY atorvastatin 20 mg tablet 20 mg PO HS Discharge Orders: Discharge Order (Routine); Ordered 10/17/22 Ordered By: Monika Horan Patient Education: Iron Supplements (By mouth), Gastrointestinal Bleeding (DC) Additional Instructions: Discharge Hemoglobin stable at 9.1! Start iron supplementation (325mg of Ferrous Sulfate daily, take in the morning with some Vitamin C, either a cup of OJ or some strawberries). This can cause darker stools as a side effect (FYI). [facility] should be calling you for an appt, we asked that they expedite the followup. [place] diet (potatoes, toast, bananas) and continue your Metamucil. If you have any recurrence of bleeding or any lightheadedness, dizziness, you need to be seen again urgently. Activity Level: Activity as Tolerated Discharge Diet: Regular Follow Up Appointments: Tommie Singh MD [Primary Care Provider] - (See one of Dr. Singh's colleagues for hospital d/c followup next week) Camilo Rios MD [Referring] - 10/23/22 1:25 pm ([facility]) Forms: [employer] Info Instructions
--- NOTE | 2022-10-17 14:30 | NUTR.NU ---
Nutrition education for diverticulosis. Pt advised by MD to follow low fiber for several days. Information reviewed for low fiber with transition to regular/high fiber (25 gm) diet. Supporting written materials provided. Pt and verbalized understanding. Phone number for dietitian provided. Pt encouraged to call with questions.
[2022-10-17 14:33] VITALS: BP 111/75; PULSE 65; RESP 16; TEMP 36.6
--- NOTE | 2022-10-17 14:34 | PC.NURSE ---
Discharge: Patient pleasant and cooperative. Up independently. Tolerating regular diet, had x2 small formed BM, appeared dark but without blood/clots. Denied pain/nausea, vitals stable and WNL. IV removed with catheter intact. Discharge instructions given, new medications and follow up reviewed. Questions answered as needed. Patient discharged @ 1433 via wheelchair, to take home.
== END 2022-10-17 14:33 | disposition home or self-care (01) | DRG 378 ==
LOC: ED 14:54 → MEDSURG 17:29
PROVIDERS: Admitting Provider Family Medicine; Emergency Provider Family Medicine; PCP Surgery; Visit Provider Family Medicine
DX: K57.91 Diverticulosis of intestine, part unspecified, without perforation or abscess with bleeding (principal); D62 Acute posthemorrhagic anemia; R42 Dizziness and giddiness; I10 Essential (primary) hypertension; E78.5 Hyperlipidemia, unspecified
CPT/HCPCS: 36415; 80053; 85018; 85025; 85610; 86140; 86850; 86900; 86901; 99284; 99285; C9113; J7030; J7120